=== PATIENT | male | born 1970 | race American Indian/Alaskan Native ===

== ENCOUNTER 2017-12-15 13:05 | Emergency (ER) | payer OTHER, SELFPAY ==
[2017-12-15 13:28] VITALS: BP 135/80; PULSE 85; RESP 20; TEMP 36.9; O2SAT 95
--- NOTE | 2017-12-15 14:05 | DI.RAD.S_ITS ---
PROCEDURE: XR KNEE RT 3V INDICATIONS: right knee twisted TECHNIQUE: 3 views right knee COMPARISON: [facility], , KNEE 3V RIGHT, 07/28/2015, 14:00. FINDINGS: Bones: No fractures or dislocations but there is moderately severe to severe degenerative knee joint osteoarthritis most pronounced at the lateral compartment and slightly less prominent at the medial compartment. It is mild at the patellofemoral joint. No suspicious bony lesions. Soft tissues: There is a moderately large to large suprapatellar joint effusion without lipohemarthrosis.. No suspicious soft tissue calcifications. IMPRESSION: Significant joint effusion is present in the suprapatellar bursal space at the right knee in this patient with twisting injury. Degenerative osteoarthritis is moderately severe to severe at the knee also, predisposing to meniscal or ligamentous injury. Followup knee MRI likely will become necessary. Dictated by: Theo Han M.D. on 12/15/2017 at 15:32 Approved by: Theo Han M.D. on 12/15/2017 at 15:35
--- NOTE | 2017-12-15 14:50 | PC.NURSE ---
done from lobby
--- NOTE | 2017-12-15 18:03 | ED_ITS ---
HPI - Extremity Injury (Lower) <QUINTON Vidal - Last Filed: 12/15/17 22:06> General Chief Complaint: Extremity Injury, Lower Stated Complaint: twisted right knee Time Seen by Provider: 12/15/17 18:23 Source: patient Mode of arrival: wheelchair Limitations: no limitations History of Present Illness HPI Narrative: 47-year-old male with history of kidney stones and is a current smoker here for complaint of pain into his right knee. Pain started earlier today. He states he stepped off a curb when the pain started. Shortly after that the pain worsened. He denies any falls. Denies any trauma to the area. Increased pain with movement of the right knee or weight-bearing. He also reports having some slight swelling to the area. He states he may have twisted when he stepped off the curb. He denies any other concerns or complaints at this time Related Data Previous Rx's Medication Instructions Recorded hydrocodone-acetaminophen [[place]] 1 tab PO Q4-6H PRN #10 tab 12/15/17 Allergies Allergy/AdvReac Type Severity Reaction Status Date / Time No Known Drug Allergies Allergy Verified 12/15/17 18:46 Review of Systems <QUINTON Vidal - Last Filed: 12/15/17 22:06> Constitutional Denies chills, Denies fever(s), Denies lethargy and Denies weakness Eyes Denies change in vision, Denies eye discharge, Denies irritation and Denies loss of vision ENT Ears, Nose, Mouth, and Throat: Denies change in voice, Denies neck pain and Denies sore throat Cardiovascular Denies chest pain, Denies irregular heart rhythm, Denies lightheadedness, Denies palpitations, Denies dyspnea, Denies dyspnea on exertion and Denies orthopnea Respiratory Denies cough, Denies dyspnea, Denies dyspnea on exertion and Denies wheezing Gastrointestinal Gastrointestinal: Denies abdominal pain, Denies change in bowel habits, Denies diarrhea, Denies nausea and Denies vomiting Genitourinary Denies hematuria, Denies flank pain, Denies urinary incontinence and Denies urinary urgency Musculoskeletal Denies neck pain Comments: Right knee pain Integumentary/Breasts Denies pruritus, Denies erythema, Denies rash and Denies wounds Neurologic Denies confusion, Denies loss of vision and Denies weakness Psychiatric Denies anxiety, Denies confusion, Denies depression, Denies homicidal ideation and Denies suicidal ideation Endocrine Denies palpitations Hematologic/Lymphatic Denies easy bruising Allergic/Immunologic Denies wheezing Exam <QUINTON Vidal - Last Filed: 12/15/17 22:06> Initial Vital Signs Initial Vital Signs: Vital Signs Temperature 98.5 F 12/15/17 13:28 Pulse Rate 85 12/15/17 13:28 Respiratory Rate 20 12/15/17 13:28 Blood Pressure 135/80 12/15/17 13:28 Pulse Oximetry 95 12/15/17 13:28 Const General: cooperative and well developed Nutritional Appearance: well nourished Orientation: alert, awake, oriented x3 and not confused HENMT Mouth: moist mucous membranes Eyes Conjunctivae: conjunctivae normal Sclera: sclerae normal Pupils: PERRL EOM: EOM intact bilaterally Resp Effort & Inspection: normal respiratory effort, able to speak in complete sentences, no respiratory distress and no use of accessory muscles Auscultation: clear to auscultation bilaterally, no rales, no rhonchi and no wheezes Cardio Rate: regular rate Rhythm: regular rhythm Heart Sounds: no click, no gallops, no murmurs and no rubs Pulses: normal peripheral pulses Skin General: no rashes or lesions noted, No jaundice and No petechiae Neuro General: alert, oriented x3, gait normal and no focal motor deficits Speech: speech normal Extrem Other: Swelling to the right knee. No ecchymosis. No deformities. No open lesions. Distal sensation is intact. Distal range of motion is intact. Distal pulses are intact. Negative anterior posterior drawer sign. Negative varus and valgus stress test. <Carley Carr DO - Last Filed: 12/16/17 03:02> Initial Vital Signs Initial Vital Signs: Vital Signs Temperature 98.5 F 12/15/17 13:28 Pulse Rate 85 12/15/17 13:28 Respiratory Rate 20 12/15/17 13:28 Blood Pressure 135/80 12/15/17 13:28 Pulse Oximetry 95 12/15/17 13:28 Course <QUINTON Vidal - Last Filed: 12/15/17 22:06> Orders Ordered: Discontinued Medications Hydrocodone Bitart/Acetaminophen ([place] 5/325) 2 tab PO NOW ONE Stop: 12/15/17 18:37 Last Admin: 12/15/17 18:47 Dose: 2 tab Vital Signs - 8 hr 12/15/17 19:37 Pulse Rate 80 Respiratory Rate 16 Blood Pressure 130/75 Pulse Oximetry 97 <Carley Carr DO - Last Filed: 12/16/17 03:02> Orders Ordered: Discontinued Medications Hydrocodone Bitart/Acetaminophen ([place] 5/325) 2 tab PO NOW ONE Stop: 12/15/17 18:37 Last Admin: 12/15/17 18:47 Dose: 2 tab Vital Signs - 8 hr 12/15/17 19:37 Pulse Rate 80 Respiratory Rate 16 Blood Pressure 130/75 Pulse Oximetry 97 MDM - Extremity Injury (Lower) <QUINTON Vidal - Last Filed: 12/15/17 22:06> Imaging Data Right knee: Radiologist's impression: [address] [address] XRay Report Signed Patient: Kenan DoughertyMR#: [id number] : 1970Acct:[id number] Age/Sex: 47 / MDate of Service: 12/15/17 Loc: ED Accession Number: [id number] Procedure: XR knee RT 3V Ordering Provider: Ashish Rodrigez PROCEDURE: XR KNEE RT 3V INDICATIONS: right knee twisted TECHNIQUE: 3 views right knee COMPARISON: [facility], , KNEE 3V RIGHT, 07/28/2015, 14:00. FINDINGS: Bones: No fractures or dislocations but there is moderately severe to severe degenerative knee joint osteoarthritis most pronounced at the lateral compartment and slightly less prominent at the medial compartment. It is mild at the patellofemoral joint. No suspicious bony lesions. Soft tissues: There is a moderately large to large suprapatellar joint effusion without lipohemarthrosis.. No suspicious soft tissue calcifications. IMPRESSION: Significant joint effusion is present in the suprapatellar bursal space at the right knee in this patient with twisting injury. Degenerative osteoarthritis is moderately severe to severe at the knee also, predisposing to meniscal or ligamentous injury. Followup knee MRI likely will become necessary. Dictated by: Theo Han M.D. on 12/15/2017 at 15:32 Approved by: Theo Han M.D. on 12/15/2017 at 15:35 [facility] Narrative Medical decision making narrative: X-ray the right knee was obtained was negative for any acute fractures. X-ray does show a joint effusion to the right knee. Will treat as acute sprain with knee immobilizer and crutches for nonweightbearing. Follow up with primary care provider next week for re- evaluation. If continued knee pain recommend MRI. For any worsening symptoms return to the emergency room. Ibuprofen as needed for any discomfort. Small amount of [place] is prescribed for breakthrough pain. Ice and elevation help with any swelling.. Discharge Plan Departure Patient Disposition: Home Clinical Impression: Right knee sprain Discharge Date/Time: 12/15/17 19:25 Interventions: ED Discharge Assessment Last Done: 12/15/17 19:37 Instructions: DI for Knee Pain Activity Restrictions/Additional Instructions: X-ray of the knee was obtained and was negative for any fractures. Signs and symptoms presents as a sprain to the right knee. Use [id number] Tylenol or Motrin as needed for any discomfort. Elevate the leg to help with swelling along with ice 20 min at a time several times a day over the next few days. Follow up with primary care provider next week. You have been placed in knee immobilizer for comfort and support use as directed. Crutches also provided for nonweightbearing. For any worsening symptoms return to the emergency room. Prescriptions: New hydrocodone-acetaminophen [[place]] 5-325 mg tablet 1 tab PO Q4-6H PRN (Reason: pain) Qty: 10 RF: 0 Referrals: Silvina Cartwright MD [Primary Care Provider] - Stand Alone Forms: Work/School Restrictions <Carley Carr DO - Last Filed: 12/16/17 03:02> [facility] Attending Lisa Attestation: I was immediately available in the department for consultation. Documentation has been reviewed. I agree with assessment and plan.
[2017-12-15 18:06] VITALS: BP 133/79; PULSE 16; RESP 16; O2SAT 99
[2017-12-15] MEDS: HYDROCODONE/ACET 5/325 TABLET 2 TAB PO (18:47)
[2017-12-15 19:37] VITALS: BP 130/75; PULSE 80; RESP 16; O2SAT 97
== END 2017-12-15 19:25 | disposition home or self-care (01) ==
PROVIDERS: Emergency Provider Nurse Practitioner Family; Family Provider Family Medicine; PCP Family Medicine
DX: S83.91XA Sprain of unspecified site of right knee, initial encounter (principal); W18.43XA Slipping, tripping and stumbling without falling due to stepping from one level to another, initial encounter
CPT/HCPCS: 73562; 99283

== ENCOUNTER → 2020-07-02 13:02 | Outpatient (CLI) | payer OTHER, SELFPAY ==
--- NOTE | 2020-07-02 13:06 | DI.US.S_ITS ---
PROCEDURE: US PERIPH VENOUS LOW EXTREM LT INDICATIONS: LOWER EXTREMITY EDEMA TECHNIQUE: Real-time imaging, as well as color and pulse Doppler interrogation, were performed of the lower extremity deep veins from the inguinal ligament to the popliteal fossa. COMPARISON: [facility], US, US VENOUS LOWER EXTREMITY DOPPLER LEFT, 04/29/2019, 23:55. [facility], US, US VENOUS LOWER EXTREMITY DOPPLER LEFT, 08/22/2018, 18:53. [facility], US, VEINS EXTREMITY DUPLEX LTD, 09/02/2008, 8:14. FINDINGS: The common femoral, femoral and popliteal veins are normally compressible, and free of intraluminal thrombus. Color and pulse Doppler demonstrate normal phasic intraluminal flow. There is normal augmentation response to distal compression maneuver. Calf edema is seen. Multiple groin lymph nodes are seen, with the largest measuring 7.3 x 6.2 x 1.4 cm. IMPRESSION: Negative for deep venous thrombosis. Prominent left groin lymph nodes are seen. Dictated by: Braeden Esposito M.D. on 07/02/2020 at 14:17 Approved by: Braeden Esposito M.D. on 07/02/2020 at 14:18
== END ==
PROVIDERS: Family Provider Family Medicine; PCP Family Medicine; Referring Provider Physician Assistant; Visit Provider Physician Assistant
DX: R60.0 Localized edema (principal); R59.0 Localized enlarged lymph nodes
CPT/HCPCS: 93971

== ENCOUNTER → 2021-01-08 15:30 | Outpatient (CLI) | payer OTHER, SELFPAY ==
--- NOTE | 2021-01-08 | DI.RAD.S_ITS ---
PROCEDURE: XR HIP W PEL IF DONE DANUTA MIN 4V INDICATIONS: Pain in Hips TECHNIQUE: AP pelvis with lateral view(s) of the bilateral hip(s). COMPARISON: Reference is made to the CT pelvis dated August 22, 2018. FINDINGS: Bones: No fractures or dislocations. Pelvic ring appears intact. No suspicious bony lesions. At least mild hip joint space loss with osteophyte formation. Soft tissues: The visualized bowel gas pattern is normal. No suspicious soft tissue calcifications. IMPRESSION: No acute osseous abnormality. Dictated by: Agustin Espitia M.D. on 01/08/2021 at 16:26 Approved by: Agustin Espitia M.D. on 01/08/2021 at 16:29
== END ==
PROVIDERS: Family Provider Family Medicine; PCP Family Medicine; Referring Provider Physician Assistant; Visit Provider Physician Assistant
DX: M25.551 Pain in right hip (principal); M25.552 Pain in left hip
CPT/HCPCS: 73522

== ENCOUNTER 2021-06-01 13:18 | Inpatient (IN) | payer OTHER, SELFPAY ==
[2021-06-01] VITALS (46 sets, daily range): BP systolic 108–198; BP diastolic 52–94; PULSE 113–132; RESP 12–39; TEMP 37.3–39.6; O2SAT 91–97; BMI 53.6
--- NOTE | 2021-06-01 13:44 | DI.RAD.S_ITS ---
PROCEDURE: XR CHEST 1V INDICATIONS: suspected sepsis TECHNIQUE: One view of the chest was acquired. COMPARISON: [facility], , CHEST 2 VIEW, 06/16/2015, 13:48. FINDINGS: Surgical changes and devices: None. Lungs and pleura: Lungs are clear. No pleural effusions or pneumothorax. Mediastinum: Mediastinal contours appear normal. Heart size is normal. Bones and chest wall: No suspicious bony lesions. Overlying soft tissues appear unremarkable. IMPRESSION: No acute cardiopulmonary disease. Dictated by: Kanchan Goodman M.D. on 06/01/2021 at 14:37 Approved by: Kanchan Goodman M.D. on 06/01/2021 at 14:38
[2021-06-01 14:45] LABS: COVID19 -Nasal RAPID Negative (Negative)
[2021-06-01] MEDS: ONDANSETRON 4 MG ODT PO (16:10)
[2021-06-01 16:11] LABS: Amorphous Sediment Urine 1+; Bacteria Urine Few (2-10); Mucus Urine 1+ (Negative); RBC Urine 0-1/HPF (0-5/HPF); Squamous Epithelial Cell Urine 1-5 /HPF (0-5/HPF); WBC Urine 1-5/HPF (0-5/HPF)
[2021-06-01 16:12] LABS: Culture Indicated Urine Specimen Cultured; Sperm Urine 2-5 MOTILE
--- NOTE | 2021-06-01 16:17 | DI.CT.S_ITS ---
PROCEDURE: CT ABDOMEN PELVIS W CON INDICATIONS: suprapubic pain and erythema TECHNIQUE: After the administration of intravenous contrast, axial sections acquired from the lung bases to the pubic symphysis. Coronal and sagittal reformats were performed. For radiation dose reduction, the following was used: automated exposure control, adjustment of mA and/or kV according to patient size. COMPARISON: [facility], CT, CT ABDOMEN PELVIS WITHOUT CONTRAST, 02/25/2021, 21:16. FINDINGS: The urinary bladder is decompressed by Marcano catheter and is not well evaluated. There may be some thickening of the anterior urinary bladder wall, although this is not definitive. There is no perivesicular fat stranding or free fluid. Lymphadenopathy in the left inguinal, left pelvic sidewall, left iliac, and left periaortic/retroperitoneal stations is similar to the comparison examination. No abnormally dilated or thickened loop of bowel. No pericolonic or mesenteric fat stranding. Grossly unremarkable unenhanced CT appearance of the liver, spleen, pancreas, gallbladder, and adrenal glands. Nonobstructing calculus in the left lower pole kidney similar to the prior study. No additional urinary tract calculus. No hydroureteronephrosis or perinephric fat stranding. Visualized portions of the lung bases are clear. No acute or suspicious osseous lesion. IMPRESSION: Left inguinal, pelvic sidewall, iliac, and retroperitoneal lymphadenopathy similar to February 2021 examination. This remains of indeterminate etiology. Possible anterior urinary bladder wall thickening; evaluation limited by decompression of the urinary bladder by a Marcano catheter. Dictated by: Jeevan Hutchison M.D. on 06/01/2021 at 17:36 Approved by: Jeevan Hutchison M.D. on 06/01/2021 at 17:43
--- NOTE | 2021-06-01 16:17 | DI.US.S_ITS ---
PROCEDURE: US SCROTUM INDICATIONS: suprapubic pain and erythema TECHNIQUE: Real-time scanning was performed of the scrotum and testicles, with image documentation. Color and pulse Doppler interrogation was performed of both testicles. COMPARISON: None. FINDINGS: Both testicles normal in size and appearance. There is no testicular mass. The right testicle measures 2.8 x 3.9 x 6.1 cm. The left testicle measures 3.0 x 4.0 x 5.8 cm. Both testicles demonstrate normal and symmetric Doppler vascular signal with no evidence of hyperemia or torsion. Bilateral epididymi are ill-defined and appear hyperemic. No hydrocele or varicocele. IMPRESSION: Ill-defined and hyperemic bilateral epididymi suggestive of epididymitis. Dictated by: Jeevan Hutchison M.D. on 06/01/2021 at 17:06 Approved by: Jeevan Hutchison M.D. on 06/01/2021 at 17:07
--- NOTE | 2021-06-01 16:22 | ED.FEVER ---
HPI - Fever General Chief Complaint: Fever Stated Complaint: DAX Oropeza Time Seen by Provider: 06/01/21 15:54 Source: patient Mode of arrival: Ambulatory Limitations: no limitations History of Present Illness HPI Narrative: The patient complains of fever. He says he became ill about 10:00 a.m. this morning. He complains primarily of groin/genital pain. He has no headache, no sore throat. He denies cough, or dyspnea. He has no chest pain. He is morbidly obese. He has nausea without emesis. He does not have urinary retention or dysuria. He has pain and swelling lower abdomen and the genital region. He also complains of back pain. He has chronic back pain. He has no numbness or weakness in lower extremities. He has no regular prescription medications. Related Data Home Medications Medication Instructions Recorded Confirmed No Known Home Medications 08/16/18 08/16/18 Allergies Allergy/AdvReac Type Severity Reaction Status Date / Time No Known Drug Allergies Allergy Verified 08/16/18 16:22 Review of Systems Constitutional Constitutional: Reports chills, Reports fever(s), Denies headache(s) and Denies stops breathing during sleep ENT Ears, Nose, Mouth, and Throat: Denies headache(s), Denies sinus pressure and Denies sore throat Cardiovascular Cardiovascular: Denies chest pain, Denies rapid heart rate and Denies dyspnea Respiratory Respiratory: Denies cough and Denies dyspnea Gastrointestinal Gastrointestinal: Reports as per HPI and Reports abdominal pain Genitourinary Comments: Pain in the groin as noted HPI. No dysuria. Musculoskeletal Comments: Chronic low back pain Integumentary/Breasts Comments: Erythema to the lower abdomen groin. Neurologic Neurologic: Denies headache(s) Psychiatric Psychiatric: Reports anxiety Hematologic/Lymphatic On Anticoagulants: No Patient History Medical History (Updated 06/01/21 @ 21:54 by Florencio Durán MD) Chronic low back pain Morbid obesity Social History Smoking Status: Former smoker Smoking Status: Former smoker alcohol intake frequency: holidays/special occasions only Substance Use Type: does not use Exam Initial Vital Signs Initial Vital Signs: Vital Signs Temperature 101.8 F H 06/01/21 13:37 Pulse Rate 120 H 06/01/21 13:37 Respiratory Rate 24 06/01/21 13:37 Blood Pressure 131/82 06/01/21 13:37 Pulse Oximetry 97 06/01/21 13:37 Const General: cooperative and acute distress [facility] Head: normal to inspection, normocephalic and atraumatic Throat: posterior oropharynx normal Eyes General: appearance normal, both eyes and all related structures Neck Neck: full ROM and No JVD Chest Chest: normal inspection of the chest Resp Effort & Inspection: normal respiratory effort Auscultation: clear to auscultation bilaterally Cardio Rate: tachycardic Rhythm: regular rhythm Heart Sounds: S1 normal, S2 normal and no murmurs GI Other: Morbidly obese abdomen. Erythema with warmth under the pannus. No skin breaks. No skin lesions. Tenderness in the area of cellulitis. There is no guarding or rebound tenderness about the abdomen. He has normal bowel sounds. Other: Erythema to the penis and scrotum. The scrotum is warm and seems to be slightly thickened. Erythema is present throughout the folds the groin. No palpable masses to the scrotum. No areas of induration or fluctuance. Back/Spine/Pelvis Back: normal to inspection and back tenderness (Over the lower lumbar spine.) Skin Other: Cellulitic changes below the pannus and throughout the groin across the scrotum. Neuro General: patient alert and patient oriented x3 Extrem General: normal to inspection, full ROM, no pedal edema and no calf tenderness Psych Mental Status: mental status grossly normal Course Course Course Narrative: The patient was tachycardic with fever 1 arrived. He is normotensive. Sepsis was immediate concern. IV fluids were started, he was given Zosyn. COVID is negative. There is no acute pulmonary process in place. Cath urine sample does not indicate an infection. Findings are suggestive that the cellulitis of his pannus and groin are his source of fever. The case was discussed with Urology, Dr. Moss with the [facility]. 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 There is no obvious changes on the exam indicating necrosis or gangrene. He agrees with treatment for cellulitis. He did note that the area of concern should be evaluated regularly, monitoring for skin changes. The case was then presented to the hospitalist, Dr. Chin, who has agreed to admission. In addition Zosyn, I also started vancomycin. Blood cultures were obtained before the antibiotics were given. The patient is tachycardic with fever. He is normotensive. Lactic acid is slightly elevated. Normal saline 30 mL per/kg ideal body weight was initiated along with antibiotics. Orders Ordered: ED Orders 06/01/21 13:44 XR chest 1V Stat RT Consult Eval and Treat NOW 06/01/21 13:45 COVID19 -Nasal swab/Pre-Proc Stat 06/01/21 15:00 Urine Culture Stat Urine Microscopic Stat 06/01/21 15:17 EKG-12 Lead Stat 06/01/21 16:17 CT abdomen pelvis w con Stat US scrotum Stat 06/01/21 16:42 Complete Blood Count AUTO DIFF Stat Comprehensive Metabolic Panel Stat Lactate (Lactic Acid) Stat Lipase Stat Partial Thromboplastin Time Stat Procalcitonin Stat Prothrombin Time INR Stat 06/01/21 18:42 Blood Culture Stat Lactate (Lactic Acid) Stat Sodium Chloride (Normal Saline 0.9%) 1,000 mls @ 1,000 mls/hr IV BOLUS ONE Stop: 06/01/21 22:35 Last Admin: 06/01/21 21:56 Dose: 1,000 mls/hr Documented by: Vancomycin HCl/Dextrose (Vancomycin) 2,000 mg in 400 mls @ 200 mls/hr IV NOW ONE Stop: 06/01/21 23:38 Last Admin: 06/01/21 21:56 Dose: 200 mls/hr Documented by: Discontinued Medications Acetaminophen (Acetaminophen 325 Mg Tablet) 975 mg PO NOW ONE Stop: 06/01/21 16:22 Last Admin: 06/01/21 18:02 Dose: 975 mg Documented by: JAMES Hydromorphone HCl (Hydromorphone 1 Mg Inj) 1 mg IV NOW ONE Stop: 06/01/21 19:06 Last Admin: 06/01/21 19:20 Dose: 1 mg Documented by: KRISTINAETERSON Hydromorphone HCl (Hydromorphone 1 Mg Inj) 1 mg IV Q4H PRN PRN Reason: Pain, Moderate (4-6) Hydromorphone HCl (Hydromorphone 0.5 Mg Inj) 1 mg IV NOW ONE Stop: 06/01/21 21:49 Sodium Chloride (Normal Saline 0.9%) 1,000 mls @ 1,000 mls/hr IV BOLUS ONE Stop: 06/01/21 14:43 Last Infusion: 06/01/21 20:02 Dose: 0 mls/hr Documented by: Admin: 06/01/21 16:47 Dose: 1,000 mls/hr Documented by: ONIEL Piperacillin Sod/Tazobactam (Sod 4.5 gm/ Sodium Chloride) 100 mls @ 200 mls/hr IV NOW ONE Stop: 06/01/21 16:18 Last Infusion: 06/01/21 18:10 Dose: 0 mls/hr Documented by: Admin: 06/01/21 17:00 Dose: 200 mls/hr Documented by: JAMES Sodium Chloride (Normal Saline 0.9%) 1,000 mls @ 1,000 mls/hr IV BOLUS ONE Stop: 06/01/21 17:20 Last Admin: 06/01/21 19:17 Dose: 1,000 mls/hr Documented by: JAMES Ketorolac Tromethamine (Ketorolac 30 Mg/Ml Vial) 30 mg IV NOW ONE Stop: 06/01/21 21:45 Last Admin: 06/01/21 21:56 Dose: 30 mg Documented by: Lidocaine HCl (Lidocaine 2% (Glydo) 6 Ml Gel) 6 ml TOP NOW ONE Stop: 06/01/21 16:28 Last Admin: 06/01/21 16:35 Dose: 6 ml Documented by: ONIEL Ondansetron HCl (Ondansetron 4 Mg/2 Ml Inj) 4 mg IV NOW ONE Stop: 06/01/21 13:45 Last Admin: 06/01/21 18:02 Dose: Not Given Documented by: JAMES Ondansetron HCl (Ondansetron 4 Mg Odt) 4 mg PO NOW ONE Stop: 06/01/21 16:08 Last Admin: 06/01/21 16:10 Dose: 4 mg Documented by: ONIEL Ondansetron HCl (Ondansetron 4 Mg/2 Ml Inj) 4 mg IV NOW ONE Stop: 06/01/21 16:18 Last Admin: 06/01/21 18:03 Dose: Not Given Documented by: JAMES Vital Signs Vital signs: Vital Signs - 8 hr 06/01/21 15:18 06/01/21 15:19 06/01/21 15:30 Temperature 103.1 F H Pulse Rate 126 H 126 H 126 H Respiratory Rate 17 19 Blood Pressure 161/89 H Pulse Oximetry 95 95 95 06/01/21 15:45 06/01/21 16:00 06/01/21 16:06 Temperature Pulse Rate 125 H 130 H Respiratory Rate 17 39 H Blood Pressure 124/85 Pulse Oximetry 97 95 06/01/21 16:15 06/01/21 16:16 06/01/21 16:30 Temperature Pulse Rate 128 H 128 H 128 H Respiratory Rate 22 18 22 Blood Pressure 198/94 H Pulse Oximetry 96 96 94 06/01/21 16:33 06/01/21 16:45 06/01/21 16:46 Temperature Pulse Rate 127 H 123 H 122 H Respiratory Rate 23 18 16 Blood Pressure 180/78 H 175/90 H Pulse Oximetry 96 96 96 06/01/21 17:00 06/01/21 17:15 06/01/21 17:35 Temperature Pulse Rate 125 H 124 H 120 H Respiratory Rate 12 24 19 Blood Pressure 158/74 H 153/69 H Pulse Oximetry 96 95 97 06/01/21 17:45 06/01/21 18:00 06/01/21 18:15 Temperature Pulse Rate 122 H 127 H 129 H Respiratory Rate 23 28 H 27 H Blood Pressure Pulse Oximetry 96 94 96 06/01/21 18:16 06/01/21 18:30 06/01/21 18:45 Temperature 103.2 F H Pulse Rate 129 H 132 H 122 H Respiratory Rate 20 27 H 25 H Blood Pressure 153/67 H 114/55 L 115/54 L Pulse Oximetry 95 94 95 06/01/21 19:00 06/01/21 19:09 06/01/21 19:15 Temperature Pulse Rate 121 H 120 H 125 H Respiratory Rate 22 30 H 24 Blood Pressure 117/54 L 120/53 L 132/53 L Pulse Oximetry 95 95 94 06/01/21 19:30 06/01/21 19:33 06/01/21 19:45 Temperature Pulse Rate 126 H 127 H 127 H Respiratory Rate 17 26 H 24 Blood Pressure 114/54 L 113/53 L 111/54 L Pulse Oximetry 91 92 92 06/01/21 20:00 06/01/21 20:10 06/01/21 20:15 Temperature 100.1 F H Pulse Rate 126 H 125 H Respiratory Rate 26 H 25 H Blood Pressure 110/55 L 122/59 L Pulse Oximetry 92 92 06/01/21 20:30 06/01/21 20:45 06/01/21 21:00 Temperature Pulse Rate 122 H 122 H 124 H Respiratory Rate 25 H 32 H 27 H Blood Pressure 121/56 L 116/52 L 131/60 Pulse Oximetry 94 93 93 06/01/21 21:15 Temperature Pulse Rate 124 H Respiratory Rate 24 Blood Pressure 108/53 L Pulse Oximetry 92 MDM - Fever Lab Data Result diagrams: 06/01/21 16:42 06/01/21 16:42 Labs: Lab Results 06/01/21 06/01/21 06/01/21 Range/Units 13:45 15:00 16:42 WBC 16.4 H (4.5-11.0) X10^3/uL RBC 5.60 (4.5-5.9) X10^6/uL Hgb 14.9 (13.5-17.5) g/dL Hct 46.3 (41-53) % MCV 82.6 (80-100) fL MCH 26.6 (26-34) PG MCHC 32.2 (30-36) % RDW 15.4 H (11.6-14.8) % Plt Count 246 (150-400) X10^3/uL Neut % (Auto) 90.1 H (50-75) % Lymph % (Auto) 4.5 L (25-40) % [place] % (Auto) 5.0 (3-14) % Eos % (Auto) 0.1 L (2-4) % Baso % (Auto) 0.3 (0-2) % Neut # (Auto) 70514 H (6206-5879) /uL Lymph # (Auto) 700 L (8346-1350) /uL [place] # (Auto) 800 (0-900) /uL Eos # (Auto) 0 (0-450) /uL Baso # (Auto) 0 (0-100) /uL PT (10.1-12.7) SECONDS INR (0.9-1.3) APTT (26.4-36.2) SECONDS Sodium (137-145) mmol/L Potassium (3.4-5.1) mmol/L Chloride (98-107) mmol/L Carbon Dioxide (22-32) mmol/L BUN (9-20) mg/dL Creatinine (0.66-1.25) mg/dL Estimated GFR (>60) mL/min BUN/Creatinine Ratio (6-22) Glucose (70-100) mg/dL Lactate (0.7-2.1) mmol/L Calcium (8.4-10.2) mg/dL Total Bilirubin (0.2-1.3) mg/dL AST (17-59) IU/L ALT (<50) IU/L Alkaline Phosphatase (38-126) U/L Total Protein (6.3-8.2) g/dL Albumin (3.5-5.0) g/dL Globulin (1.7-4.1) g/dL Albumin/Globulin Ratio (1.0-2.8) Lipase (23-300) U/L Procalcitonin (<0.5) ng/mL Urine RBC 0-1/hpf (0-5/HPF) Urine WBC 1-5/hpf (0-5/HPF) Ur Squamous Epith Cells 1-5 /hpf (0-5/HPF) Amorphous Sediment 1+ Urine Bacteria Few (2-10) H (None) Urine Mucus 1+ H (Negative) Urine Sperm 2-5 motile Ur Culture Indicated? Specimen cultured SARS-CoV-2 (PCR) Negative (Negative) 06/01/21 06/01/21 06/01/21 Range/Units 16:42 16:42 16:42 WBC (4.5-11.0) X10^3/uL RBC (4.5-5.9) X10^6/uL Hgb (13.5-17.5) g/dL Hct (41-53) % MCV (80-100) fL MCH (26-34) PG MCHC (30-36) % RDW (11.6-14.8) % Plt Count (150-400) X10^3/uL Neut % (Auto) (50-75) % Lymph % (Auto) (25-40) % [place] % (Auto) (3-14) % Eos % (Auto) (2-4) % Baso % (Auto) (0-2) % Neut # (Auto) (3782-9505) /uL Lymph # (Auto) (3930-0582) /uL [place] # (Auto) (0-900) /uL Eos # (Auto) (0-450) /uL Baso # (Auto) (0-100) /uL PT 12.2 (10.1-12.7) SECONDS INR 1.1 (0.9-1.3) APTT 31 (26.4-36.2) SECONDS Sodium 138 (137-145) mmol/L Potassium 4.1 (3.4-5.1) mmol/L Chloride 102 (98-107) mmol/L Carbon Dioxide 29 (22-32) mmol/L BUN 17 (9-20) mg/dL Creatinine 1.14 (0.66-1.25) mg/dL Estimated GFR > 60.0 (>60) mL/min BUN/Creatinine Ratio 14.9 (6-22) Glucose 124 H (70-100) mg/dL Lactate 2.1 (0.7-2.1) mmol/L Calcium 9.4 (8.4-10.2) mg/dL Total Bilirubin 0.5 (0.2-1.3) mg/dL AST 26 (17-59) IU/L ALT 27 (<50) IU/L Alkaline Phosphatase 59 (38-126) U/L Total Protein 9.1 H (6.3-8.2) g/dL Albumin 4.7 (3.5-5.0) g/dL Globulin 4.4 H (1.7-4.1) g/dL Albumin/Globulin Ratio 1.1 (1.0-2.8) Lipase 66 (23-300) U/L Procalcitonin 0.30 (<0.5) ng/mL Urine RBC (0-5/HPF) Urine WBC (0-5/HPF) Ur Squamous Epith Cells (0-5/HPF) Amorphous Sediment Urine Bacteria (None) Urine Mucus (Negative) Urine Sperm Ur Culture Indicated? SARS-CoV-2 (PCR) (Negative) 06/01/21 Range/Units 18:42 WBC (4.5-11.0) X10^3/uL RBC (4.5-5.9) X10^6/uL Hgb (13.5-17.5) g/dL Hct (41-53) % MCV (80-100) fL MCH (26-34) PG MCHC (30-36) % RDW (11.6-14.8) % Plt Count (150-400) X10^3/uL Neut % (Auto) (50-75) % Lymph % (Auto) (25-40) % [place] % (Auto) (3-14) % Eos % (Auto) (2-4) % Baso % (Auto) (0-2) % Neut # (Auto) (1849-5183) /uL Lymph # (Auto) (9840-4697) /uL [place] # (Auto) (0-900) /uL Eos # (Auto) (0-450) /uL Baso # (Auto) (0-100) /uL PT (10.1-12.7) SECONDS INR (0.9-1.3) APTT (26.4-36.2) SECONDS Sodium (137-145) mmol/L Potassium (3.4-5.1) mmol/L Chloride (98-107) mmol/L Carbon Dioxide (22-32) mmol/L BUN (9-20) mg/dL Creatinine (0.66-1.25) mg/dL Estimated GFR (>60) mL/min BUN/Creatinine Ratio (6-22) Glucose (70-100) mg/dL Lactate 2.3 H (0.7-2.1) mmol/L Calcium (8.4-10.2) mg/dL Total Bilirubin (0.2-1.3) mg/dL AST (17-59) IU/L ALT (<50) IU/L Alkaline Phosphatase (38-126) U/L Total Protein (6.3-8.2) g/dL Albumin (3.5-5.0) g/dL Globulin (1.7-4.1) g/dL Albumin/Globulin Ratio (1.0-2.8) Lipase (23-300) U/L Procalcitonin (<0.5) ng/mL Urine RBC (0-5/HPF) Urine WBC (0-5/HPF) Ur Squamous Epith Cells (0-5/HPF) Amorphous Sediment Urine Bacteria (None) Urine Mucus (Negative) Urine Sperm Ur Culture Indicated? SARS-CoV-2 (PCR) (Negative) Urine Dip Bedside Urine Glucose Negative Bedside Urine Bilirubin - Negative Bedside Urine Ketone - Negative Urine Specific [place] 1.015 Bedside Urine Occult Blood +/- Bedside Urine pH 7.0 Bedside Urine Protein + 30 Bedside Urine Urobilinogen - Negative Bedside Urine Nitrite - Negative Bedside Urine Leukocytes - Negative Esterase Imaging Data Chest x-ray: Radiologist's Impression: No acute findings CT scan - abdomen/pelvis: Radiologist's Impression: [address] [facility] Routine Call Back Main ED ?13? My List ?4? Waiting ?2? Surge ED ?0? R01? Luis? Jeevan? 52 M? In Room? 2h 27m? 3-Urgent? ?? Extremity Injury, Upper? RIGHT HAND INJURY? ?? No Time Seen? REG ER? No Document? Sign Up 3rd day of bactrim Order BP 145/95 Pulse 90 Resp 18 Temp 98.4 F O2 Sat 98% (RA) Imaging R02? Monlux? Silvia? 88 F? Boarding? 11h 38m? 2-Emergent? ?? Neuro Symptoms/Deficit? Altered Mental Status? ?? 06/01/21 10:17? REG ER? Draft? Salo Brown repeat trop at 0130 Order BP Pulse 67 Resp 22 Temp O2 Sat 95% Imaging Lactate (L... ?Troponin &... ?Complete B... ?Chem Ethanol (E... ?Prolactin ... Salicylate... ?Urinalysis... ?Acetaminop... Ammonia (N... ?Prothrombi... Urine Drug... POC/CONRADO Magnesium ... ?Phosphorou... COVID19 -N... ?Troponin I... MAR EKG-12 Arely... Microbiolo... Phosphorou... EKG-12 Arely... Troponin I... R04? Siechen? Mandy? 76 F? With Doctor? 5h 31m? 3-Urgent? ?? Urogenital-Female? UNABLE TO PEE SENSE SAT SWELLING OF LEGS SOB? ?? 06/01/21 20:38? REG ER? Draft? Salo Wylie K trop 0.138 US Here Order BP 92/54 Pulse 88 Resp 16 Temp O2 Sat 98% (RA) ?Complete B... ?Chem Lipase Sta... ?Partial Th... Prothrombi... ?Urinalysis... ?NT-proBNP ... ?Troponin &... Creatinine... ?Sodium Uri... Imaging MAR NPO Diet EKG-12 Arely... Cardiac mo... Microbiolo... R05? Benjamin? Salo? 64 M? Admitted Patient? 5h 2m? 3-Urgent? VC: 1? Shortness of Breath/Dyspnea? Needs Admitted for Heart Issues? ?? 06/01/21 18:25? ADM IN? Draft? Salo Cowan Dejan Centeno coord aware prob after 2300 covid neg 3 Order BP 118/75 Pulse 102 Resp 20 Temp O2 Sat 96% (RA) ?Complete B... MAR Chem Lipase Sta... NT-proBNP ... Troponin &... EKG-12 Arely... Cardiac mo... R06? Wall? Jenifer? 51 F? Admitted Patient? 5h 55m? 2-Emergent? ?? Altered Mental Status? Confusion? Sepsis, C19S/S, ?? 06/01/21 16:39? ADM IN? Draft? Slao Phipps S floor care coord aware prob after 2300 covid neg Order BP 144/95 Pulse 107 Resp Temp 98.8 F O2 Sat ?Complete B... Lactate (L... Procalcito... ?Chem Lipase Sta... Partial Th... Prothrombi... Imaging COVID19 -N... ?NT-proBNP ... ?Troponin &... Ictotest U... ?Urinalysis... ... Ammonia (N... Ethanol (E... ?Urine Drug... ?Acetaminop... Salicylate... ?Arterial B... Respirator... ?Troponin I... MAR RT Consult... NPO Diet EKG-12 Arely... Cardiac mo... Microbiolo... POC/CONRADO R07? [place]? Zoe? 36 F? In Room? 17m? 2-Emergent? ?? Diabetic Problem? SLURRING OF WORDS DIABETIC? C19S/S? No Time Seen? PRE ER? No Document? Sign Up 7 Order BP 146/69 Pulse 118 Resp 20 Temp 97.0 F O2 Sat 100% (RA) Consult to... R08? Dougherty? Kenan? 51 M? Admitted Observation Patient? 8h 38m? 2-Emergent? ?? Fever? Shakey, SOB? Sepsis, C19S/S? 06/01/21 15:54? ADM AGGIE? Draft? Florencio Bailey coord aware plan to admit covid neg Order BP 108/53 Pulse 124 Resp 24 Temp O2 Sat 92% ?Chem Lactate (L... Partial Th... ?Complete B... Procalcito... Imaging POC/CONRADO COVID19 -N... ?Urine Micr... ?Lactate (L... Lipase Sta... Prothrombi... MAR EKG-12 Arely... NPO Diet RT Consult... Cardiac mo... Microbiolo... Urine Drug... R10? Kelsey? Asher? 49 M? With Doctor? 6h 5m? 3-Urgent? ?? GI Bleed? BLOOD IN STOOL? ?? 06/01/21 20:20? REG ER? Draft? Salo Nieves Order BP 153/110 Pulse 81 Resp Temp O2 Sat 98% Partial Th... ?Prothrombi... Type and S... ?Complete B... ?Chem Imaging NPO Diet EKG-12 Arely... Cardiac mo... POC/CONRADO R11? Rojas? Harlan? 89 M? With Doctor? 10h 26m? 3-Urgent? ?? Nausea/Vomiting/Diarrhea? Abnormal labs- liver- sent by [facility]? ISO? 06/01/21 12:06? REG ER? I-Signed? Salo Nieves [facility] for bed can we get hosp bed for ERCP Order BP 161/72 Pulse 77 Resp 21 Temp O2 Sat ?Chem Lipase Sta... ?Complete B... Ammonia (N... Imaging ?Partial Th... ?Prothrombi... POC/CONRADO ?Ictotest U... ?Troponin &... ?Ictotest U... ?Urinalysis... COVID19 -N... MAR Cardiac mo... NPO Diet EKG-12 Arely... EKG-12 Arely... Urine Micr... Microbiolo... R13? Ramo? Clarisse? 60 F? With Doctor? 4h 10m? 3-Urgent? VC: 1? Skin/Abscess/Foreign Body? CHECK ABSCESS ON STOMACH? ?? 06/01/21 21:28? REG ER? No Document? Salo Cowan lines labd Order BP Pulse 56 Resp Temp O2 Sat 100% (RA) ?Prothrombi... ?Complete B... ?Chem Microbiolo... WRoom? Stanley? Rosalie? 49 F? Registered? 2h 6m? 4-Less Urgent? ?? Wound/Laceration? RIGHT HAND DEEP CUT INDEX LACERATION? ?? No Time Seen? REG ER? No Document? Sign Up tdap UTD Order BP 146/71 Pulse 91 Resp 16 Temp 98.1 F O2 Sat 100% (RA) WRoom? Brandon? Shena? 70 F? Registered? 46m? 3-Urgent? ?? Headache? NECK PAIN? ?? No Time Seen? REG ER? No Document? Sign Up Order BP 181/84 Pulse 98 Resp 16 Temp 97.5 F O2 Sat 99% (RA) Feliberto Charles? Renaldo? 58 M? Admitted Patient? 9h 50m? 2-Emergent? ?? Abdominal Pain? Umbillical Hernia, Sent From [facility]? ?? 06/01/21 12:51? ADM IN? Draft? Florencio Lai H Room 219/[place]rene or [place] uro+ coor aware ADMIT Order BP 99/60 Pulse 77 Resp 16 Temp O2 Sat 94% ?Complete B... ?Prothrombi... Imaging Lipase Sta... ?Chem Partial Th... POC/CONRADO COVID19 -N... ?Ethanol (E... Magnesium ... ?Urine Drug... ?Lactate (L... MAR NPO Diet Cardiac mo... EKG-12 Arely... Chem NPO Diet Complete B... Lipase Sta... Cardiac mo... Admit as R... NPO Diet Imaging - CT abdomen pelvis w con; US scrotum; XR chest 1V Kenan Dougherty??51??M??1970 ? Allergy/Adv: No Known Drug Allergies Close Results Imaging ACTIVITY DATE EXAM STATUS AUTHOR 06/01/21 16:17 Scrotum Ultrasound Signed Jeevan Hutchison 06/01/21 16:17 Abdomen/Pelvis CT Signed Jeevan Hutchison 06/01/21 13:44 Chest X-Ray Signed Kanchan Goodman Imaging Reports Close Scrotum Ultrasound (Signed) Jeevan Hutchison - 06/01/21 Abdomen/Pelvis CT (Signed) Jeevan Hutchison - 06/01/21 Chest X-Ray (Signed) Kanchan Goodman - 06/01/21 Launch?[place] [address] CT Scan Report Signed Patient: Kenan Dougherty MR#: [id number] : 1970 Acct:[id number] Age/Sex: 51 / M Date of Service: 06/01/21 Loc: ED Accession Number: [id number] ?? Procedure: CT abdomen pelvis w con Ordering Provider: Florencio Durán MD PROCEDURE:? CT ABDOMEN PELVIS W CON ? INDICATIONS:? suprapubic pain and erythema ? TECHNIQUE:? After the administration of intravenous contrast, axial sections acquired from the lung bases to the pubic symphysis.? Coronal and sagittal reformats were performed.? For radiation dose reduction, the following was used:? automated exposure control, adjustment of mA and/or kV according to patient size.? ? COMPARISON:? [facility], CT, CT ABDOMEN PELVIS WITHOUT CONTRAST, 02/25/2021, 21:16. ? FINDINGS:? ? The urinary bladder is decompressed by Marcano catheter and is not well evaluated.? There may be some thickening of the anterior urinary bladder wall, although this is not definitive.? There is no perivesicular fat stranding or free fluid.? Lymphadenopathy in the left inguinal, left pelvic sidewall, left iliac, and left periaortic/retroperitoneal stations is similar to the comparison examination. ? No abnormally dilated or thickened loop of bowel.? No pericolonic or mesenteric fat stranding.? Grossly unremarkable unenhanced CT appearance of the liver, spleen, pancreas, gallbladder, and adrenal glands.? Nonobstructing calculus in the left lower pole kidney similar to the prior study.? No additional urinary tract calculus.? No hydroureteronephrosis or perinephric fat stranding.? Visualized portions of the lung bases are clear.? No acute or suspicious osseous lesion. ? IMPRESSION:? ? Left inguinal, pelvic sidewall, iliac, and retroperitoneal lymphadenopathy similar to February 2021 examination.? This remains of indeterminate etiology. ? Possible anterior urinary bladder wall thickening; evaluation limited by decompression of the urinary bladder by a Marcano catheter.? Dictated by: Jeevan Hutchison M.D. on 06/01/2021 at 17:36 ? ? Approved by: Jeevan Hutchison M.D. on 06/01/2021 at 17:43?? Scrotum ultrasound: Radiologist's Impression: [place] [address] Ultrasound Report Signed Patient: Kenan Dougherty MR#: [id number] : 1970 Acct:[id number] Age/Sex: 51 / M Date of Service: 06/01/21 Loc: ED Accession Number: [id number] ?? Procedure: US scrotum Ordering Provider: Florencio Durán MD PROCEDURE:? US SCROTUM ? INDICATIONS:? suprapubic pain and erythema ? TECHNIQUE:? Real-time scanning was performed of the scrotum and testicles, with image documentation.? Color and pulse Doppler interrogation was performed of both testicles.? ? COMPARISON:? None. ? FINDINGS:? ? Both testicles normal in size and appearance.? There is no testicular mass.? The right testicle measures 2.8 x 3.9 x 6.1 cm.? The left testicle measures 3.0 x 4.0 x 5.8 cm.? Both testicles demonstrate normal and symmetric Doppler vascular signal with no evidence of hyperemia or torsion. ? Bilateral epididymi are ill-defined and appear hyperemic. ? No hydrocele or varicocele. ? IMPRESSION: ? Ill-defined and hyperemic bilateral epididymi suggestive of epididymitis. ? ? Dictated by: Jeevan Hutchison M.D. on 06/01/2021 at 17:06 ? ? Approved by: Jeevan Hutchison M.D. on 06/01/2021 at 17:07?? ECG Data Attestation: I personally reviewed and interpreted this ECG as follows: (Sinus tachycardia rate 126 beats per minute. LAFB. Inferior Q-waves. No ectopy. No acute ST elevation.) Critical Care Time Critical Care Time Critical Care Time: Yes Total Critical Care Time: 60 Attestation: Critical care time included initial patient assessment, review of lab in radiology data, and consultations detailed above. Clinical findings and treatment plan were discussed with the patient. Discharge Plan Departure Patient Disposition: Admitted as Observation Clinical Impression: Cellulitis of groin, Morbid obesity Admit Date/Time: 06/01/21 21:31 Admit Provider: Jeanine Chin
[2021-06-01] MEDS: LIDOCAINE 2% (GLYDO) 6 ML GEL TOP (16:35)
[2021-06-01] MEDS: SODIUM CHLORIDE 0.9% 1,000 ML 1000 ML IV ×3 (16:47→21:56)
[2021-06-01 16:54] LABS: Add Manual Diff / Slide Review NO; Basophils Absolute Auto 0 /uL (0-100); Basophils Percent Auto 0.3 % (0-2); Eosinophils Absolute Auto 0 /uL (0-450); Eosinophils Percent Auto 0.1 % (2-4); Hematocrit 46.3 % (41-53); Hemoglobin 14.9 g/dL (13.5-17.5); Lymphocytes Absolute Auto 700 /uL (1100-4500); Lymphocytes Percent Auto 4.5 % (25-40); Mean Corpuscular HGB Conc 32.2 % (30-36); Mean Corpuscular Hemoglobin 26.6 PG (26-34); Mean Corpuscular Volume 82.6 fL (80-100); Monocytes Absolute Auto 800 /uL (0-900); Neutrophils Absolute Auto 14800 /uL (1500-7000); Neutrophils Percent Auto 90.1 % (50-75); Platelet Count 246 X10^3/uL (150-400); Red Cell Distribution Width 15.4 % (11.6-14.8); White Blood Cell Count 16.4 X10^3/uL (4.5-11.0)
[2021-06-01] MEDS: PIPERACILLIN/TAZO 4.5 GM in SODIUM CHLORIDE 0.9% 100 ML 200 ML IV (17:00)
[2021-06-01 17:05] LABS: INR 1.1 (0.9-1.3); Prothrombin Time 12.2 SECONDS (10.1-12.7)
[2021-06-01 17:08] LABS: PTT Partial Thromboplastin Tim 31 SECONDS (26.4-36.2)
[2021-06-01 17:09] LABS: Alanine Aminotransferase 27 IU/L (<50); Albumin 4.7 g/dL (3.5-5.0); Albumin Globulin Ratio 1.1 (1.0-2.8); Alkaline Phosphatase 59 U/L (38-126); Aspartate Aminotransferase 26 IU/L (17-59); BUN Creatinine Ratio 14.9 (6-22); Bilirubin Total 0.5 mg/dL (0.2-1.3); Blood Urea Nitrogen 17 mg/dL (9-20); Calcium 9.4 mg/dL (8.4-10.2); Carbon Dioxide 29 mmol/L (22-32); Chloride 102 mmol/L (98-107); Estimated Glomerular Filt Rate > 60.0 mL/min (>60); Globulin 4.4 g/dL (1.7-4.1); Glucose 124 mg/dL (70-100); HEMOLYSIS < 15 (0-50); Lipase 66 U/L (23-300); Potassium 4.1 mmol/L (3.4-5.1); Sodium 138 mmol/L (137-145); Total Protein 9.1 g/dL (6.3-8.2)
[2021-06-01 17:10] LABS: Lactate (Lactic Acid) 2.1 mmol/L (0.7-2.1)
[2021-06-01] MEDS: ACETAMINOPHEN 325 MG TABLET 975 MG PO (18:02)
[2021-06-01 18:49] LABS: Reflexed Lactate in 2 Hours Y
[2021-06-01 19:05] LABS: Lactate (Lactic Acid) 2.3 mmol/L (0.7-2.1)
[2021-06-01] MEDS: HYDROMORPHONE 1 MG INJ IV ×2 (19:20→22:24)
[2021-06-01 20:44] LABS: Reflexed Lactate in 2 Hours Y
[2021-06-01] MEDS: VANCOMYCIN 2,000 MG/400 ML PIGGYBACK 200 MG IV (21:56)
[2021-06-01] MEDS: KETOROLAC 30 MG/ML VIAL IV (21:56)
[2021-06-01 22:20] LABS: UR Morphine/Opiate cutoff 300 Negative (Negative); Ur Creatinine Normal (Normal); Ur Specific Gravity Normal (Normal); Urine Amphetamines Negative (Negative); Urine Barbiturates Negative (Negative); Urine Benzodiazepines Negative (Negative); Urine Cocaine Negative (Negative); Urine MDMA Negative (Negative); Urine Methadone Negative (Negative); Urine Methamphetamines Negative (Negative); Urine Oxycodone Negative (Negative); Urine Phencyclidine Negative (Negative); Urine Tetrahydrocannabinol Negative (Negative); Urine Tricyclic Antidepressant Negative (Negative); Urine pH Normal (Normal)
[2021-06-02] VITALS (84 sets, daily range): BP systolic 125–165; BP diastolic 59–83; PULSE 85–128; RESP 16–44; TEMP 36.2–38.8; O2SAT 83–97
[2021-06-02 00:44] LABS: Magnesium 1.8 mg/dL (1.6-2.3)
[2021-06-02] MEDS: SODIUM CHLORIDE 0.9% 1,000 ML 2000 ML IV (00:45)
[2021-06-02 00:53] LABS: NT-proBNP (BNP-Adult 18+) 23 pg/mL (<125)
[2021-06-02] MEDS: SODIUM CHLORIDE 0.9% 1,000 ML 100 ML IV ×2 (01:00→13:54)
[2021-06-02] MEDS: cefTRIAXone 1,000 MG in SODIUM CHLORIDE 0.9% 100 ML 200 ML IV (01:00)
[2021-06-02] MEDS: PIPERACILLIN/TAZO 3.375 GM in SODIUM CHLORIDE 0.9% 100 ML 25 ML IV ×3 (01:00→16:33)
[2021-06-02] MEDS: ONDANSETRON 4 MG/2 ML INJ IV ×4 (01:11→21:11)
[2021-06-02] MEDS: TRAMADOL 50 MG TABLET 100 MG PO ×2 (01:23→16:34)
--- NOTE | 2021-06-02 03:22 | PM.CN.EICU ---
History of Present Illness Consult details Chief complaint: Sandip SOB :: This patient was seen in the Intensive Care Unit via real time interactive two-way audiovisual telecommunication. Narrative: 51 y.o. morbidly obese male (BMI of 56) who presented to ED with fever. Onset was early AM on 06/01. Reported groin pain. ED evaluation revealed erythema involving his pannus, penis and scrotum without fluctuance, masses, or induration. Initial lactate was 2.3. He received a 30 mL/kg IBW crystalloid bolus and was started on vancomycin and Zosyn. Lactate has improved to 2.1. He is on RA. Scrotal USG was suspicious for epididymitis; abd/pelvic CT scan did show some thickening of the anterior wall and urine microscopy did show 1+ bacteria; a urine culture was reflexed. [facility] Medical History Chronic low back pain Morbid obesity Social History household members: none Smoking Status: Former smoker alcohol intake: current Current Medications Current Medications Medications: Home Medications No Known Home Medications 08/16/18 [History Confirmed 08/16/18] Visit Medications (administered) Generic Name Dose Route Start Last Admin Trade Name Freq PRN Reason Stop Dose Admin Hydromorphone HCl 1 mg 06/01/21 22:18 06/01/21 22:24 Hydromorphone 1 Mg Inj IV 1 mg Q4H PRN Administration Pain, Moderate (4-6) Piperacillin Sod/Tazobactam 100 mls @ 25 mls/hr 06/02/21 00:00 06/02/21 01:00 Sod 3.375 gm/ Sodium Chloride IV 25 mls/hr Q8H NAMITA Administration Ceftriaxone Sodium 1,000 mg/ 100 mls @ 200 mls/hr 06/01/21 23:30 06/02/21 01:30 Sodium Chloride IV Infused Q24H NAMITA Infusion Sodium Chloride 1,000 mls @ 100 mls/hr 06/02/21 00:15 06/02/21 01:00 Normal Saline 0.9% IV 100 mls/hr CONT NAMITA Administration Ondansetron HCl 4 mg 06/02/21 01:00 03/08/22 01:11 Ondansetron 4 Mg/2 Ml Inj IV 4 mg Q4HR NAMITA Administration Tramadol HCl 100 mg 06/02/21 00:15 06/02/21 01:23 Tramadol 50 Mg Tablet PO 06/05/21 00:14 100 mg Q4H PRN Administration Pain, Severe (7-10) Review of Systems Review of Systems Narrative: Not performed as patient was sleeping on camera activation Exam Vital Signs (past 8 hours): - 06/01/21 19:30 06/01/21 19:33 06/01/21 19:45 Temperature Pulse Rate 126 H 127 H 127 H Respiratory Rate 17 26 H 24 Blood Pressure 114/54 L 113/53 L 111/54 L Pulse Oximetry 91 92 92 06/01/21 20:00 06/01/21 20:10 06/01/21 20:15 Temperature 100.1 F H Pulse Rate 126 H 125 H Respiratory Rate 26 H 25 H Blood Pressure 110/55 L 122/59 L Pulse Oximetry 92 92 06/01/21 20:30 06/01/21 20:45 06/01/21 21:00 Temperature Pulse Rate 122 H 122 H 124 H Respiratory Rate 25 H 32 H 27 H Blood Pressure 121/56 L 116/52 L 131/60 Pulse Oximetry 94 93 93 06/01/21 21:15 06/01/21 21:30 06/01/21 21:45 Temperature Pulse Rate 124 H 123 H 121 H Respiratory Rate 24 25 H 28 H Blood Pressure 108/53 L 115/53 L 119/58 L Pulse Oximetry 92 93 96 06/01/21 22:00 06/01/21 22:15 06/01/21 22:19 Temperature 101.1 F H Pulse Rate 120 H 124 H Respiratory Rate 25 H 23 Blood Pressure 120/56 L 116/56 L Pulse Oximetry 94 94 06/01/21 22:30 06/01/21 22:45 06/01/21 23:00 Temperature Pulse Rate 123 H 120 H 119 H Respiratory Rate 23 24 27 H Blood Pressure 120/58 L 126/56 L 114/52 L Pulse Oximetry 94 93 93 06/01/21 23:15 06/01/21 23:54 06/01/21 23:58 Temperature 99.1 F Pulse Rate 114 H 113 H Respiratory Rate 24 23 Blood Pressure 129/60 Pulse Oximetry 93 91 93 06/02/21 00:00 03/08/22 00:15 06/02/21 00:30 Temperature Pulse Rate 114 H 112 H 111 H Respiratory Rate 29 H 34 H 44 H Blood Pressure Pulse Oximetry 93 92 89 L 06/02/21 00:45 06/02/21 01:00 06/02/21 01:15 Temperature Pulse Rate 109 H 108 H 106 H Respiratory Rate 23 42 H 40 H Blood Pressure 134/65 Pulse Oximetry 89 L 94 95 06/02/21 01:30 06/02/21 01:45 Temperature Pulse Rate 103 H 108 H Respiratory Rate 37 H 44 H Blood Pressure 136/76 Pulse Oximetry 97 93 Oxygen Delivery Method Room Air Oxygen Flow Rate 0 Const General: other (morbidly obese male who is sleeping) Resp Effort & Inspection: normal respiratory effort (no apnea spells noted) Objective Labs Result Diagrams: 06/01/21 16:42 06/01/21 16:42 Labs: Laboratory Results - last 24 hr 06/01/21 06/01/21 06/01/21 13:45 15:00 16:42 WBC 16.4 H RBC 5.60 Hgb 14.9 Hct 46.3 MCV 82.6 MCH 26.6 MCHC 32.2 RDW 15.4 H Plt Count 246 Neut % (Auto) 90.1 H Lymph % (Auto) 4.5 L [place] % (Auto) 5.0 Eos % (Auto) 0.1 L Baso % (Auto) 0.3 Neut # (Auto) 53726 H Lymph # (Auto) 700 L [place] # (Auto) 800 Eos # (Auto) 0 Baso # (Auto) 0 PT INR APTT Sodium Potassium Chloride Carbon Dioxide BUN Creatinine Estimated GFR BUN/Creatinine Ratio Glucose Lactate Calcium Magnesium Total Bilirubin AST ALT Alkaline Phosphatase C-Reactive Protein NT-Pro-B Natriuret Pep Total Protein Albumin Globulin Albumin/Globulin Ratio Lipase Procalcitonin Urine RBC 0-1/hpf Urine WBC 1-5/hpf Ur Squamous Epith Cells 1-5 /hpf Amorphous Sediment 1+ Urine Bacteria Few (2-10) H Urine Mucus 1+ H Urine Sperm 2-5 motile Ur Culture Indicated? Specimen cultured Nasal Screen MRSA (PCR) U Opiates 300ng/mL cut Ur Oxycodone Screen Urine Methadone Screen Ur Barbiturates Screen U Tricyclic Antidepress Ur Phencyclidine Scrn Ur Amphetamines Screen U Methamphetamines Scrn Ur MDMA Scrn (Ecstasy) U Benzodiazepines Scrn Urine Cocaine Screen U Marijuana (THC) Screen SARS-CoV-2 (PCR) Negative 06/01/21 06/01/21 06/01/21 16:42 16:42 16:42 WBC RBC Hgb Hct MCV MCH MCHC RDW Plt Count Neut % (Auto) Lymph % (Auto) [place] % (Auto) Eos % (Auto) Baso % (Auto) Neut # (Auto) Lymph # (Auto) [place] # (Auto) Eos # (Auto) Baso # (Auto) PT 12.2 INR 1.1 APTT 31 Sodium 138 Potassium 4.1 Chloride 102 Carbon Dioxide 29 BUN 17 Creatinine 1.14 Estimated GFR > 60.0 BUN/Creatinine Ratio 14.9 Glucose 124 H Lactate 2.1 Calcium 9.4 Magnesium Total Bilirubin 0.5 AST 26 ALT 27 Alkaline Phosphatase 59 C-Reactive Protein NT-Pro-B Natriuret Pep Total Protein 9.1 H Albumin 4.7 Globulin 4.4 H Albumin/Globulin Ratio 1.1 Lipase 66 Procalcitonin 0.30 Urine RBC Urine WBC Ur Squamous Epith Cells Amorphous Sediment Urine Bacteria Urine Mucus Urine Sperm Ur Culture Indicated? Nasal Screen MRSA (PCR) U Opiates 300ng/mL cut Ur Oxycodone Screen Urine Methadone Screen Ur Barbiturates Screen U Tricyclic Antidepress Ur Phencyclidine Scrn Ur Amphetamines Screen U Methamphetamines Scrn Ur MDMA Scrn (Ecstasy) U Benzodiazepines Scrn Urine Cocaine Screen U Marijuana (THC) Screen SARS-CoV-2 (PCR) 06/01/21 06/01/21 06/01/21 16:42 16:42 16:42 WBC RBC Hgb Hct MCV MCH MCHC RDW Plt Count Neut % (Auto) Lymph % (Auto) [place] % (Auto) Eos % (Auto) Baso % (Auto) Neut # (Auto) Lymph # (Auto) [place] # (Auto) Eos # (Auto) Baso # (Auto) PT INR APTT Sodium Potassium Chloride Carbon Dioxide BUN Creatinine Estimated GFR BUN/Creatinine Ratio Glucose Lactate Calcium Magnesium 1.8 Total Bilirubin AST ALT Alkaline Phosphatase C-Reactive Protein NT-Pro-B Natriuret Pep 23 Total Protein Albumin Globulin Albumin/Globulin Ratio Lipase Procalcitonin Urine RBC Urine WBC Ur Squamous Epith Cells Amorphous Sediment Urine Bacteria Urine Mucus Urine Sperm Ur Culture Indicated? Nasal Screen MRSA (PCR) U Opiates 300ng/mL cut Negative Ur Oxycodone Screen Negative Urine Methadone Screen Negative Ur Barbiturates Screen Negative U Tricyclic Antidepress Negative Ur Phencyclidine Scrn Negative Ur Amphetamines Screen Negative U Methamphetamines Scrn Negative Ur MDMA Scrn (Ecstasy) Negative U Benzodiazepines Scrn Negative Urine Cocaine Screen Negative U Marijuana (THC) Screen Negative SARS-CoV-2 (PCR) 06/01/21 06/01/21 06/02/21 16:42 18:42 00:32 WBC RBC Hgb Hct MCV MCH MCHC RDW Plt Count Neut % (Auto) Lymph % (Auto) [place] % (Auto) Eos % (Auto) Baso % (Auto) Neut # (Auto) Lymph # (Auto) [place] # (Auto) Eos # (Auto) Baso # (Auto) PT INR APTT Sodium Potassium Chloride Carbon Dioxide BUN Creatinine Estimated GFR BUN/Creatinine Ratio Glucose Lactate 2.3 H Calcium Magnesium Total Bilirubin AST ALT Alkaline Phosphatase C-Reactive Protein 1.0 NT-Pro-B Natriuret Pep Total Protein Albumin Globulin Albumin/Globulin Ratio Lipase Procalcitonin Urine RBC Urine WBC Ur Squamous Epith Cells Amorphous Sediment Urine Bacteria Urine Mucus Urine Sperm Ur Culture Indicated? Nasal Screen MRSA (PCR) Negative for mrsa U Opiates 300ng/mL cut Ur Oxycodone Screen Urine Methadone Screen Ur Barbiturates Screen U Tricyclic Antidepress Ur Phencyclidine Scrn Ur Amphetamines Screen U Methamphetamines Scrn Ur MDMA Scrn (Ecstasy) U Benzodiazepines Scrn Urine Cocaine Screen U Marijuana (THC) Screen SARS-CoV-2 (PCR) Assessment & Plan Assessment and plan (1) Sepsis: Problem details: Source is soft tissue +/- urinary. Lactate has normalized Status: Acute Plan: -Continue vancomycin/Zosyn -Would check MRSA swab and stop vancomycin if swab is (-) -Follow up final urine cx results (2) Cellulitis of groin: Status: Acute Plan: -See problem #1 (3) Morbid obesity: Status: Acute Plan: -Maximal skin precautions -Consider increasing enoxaparin VTE prophylaxis to bariatric dose (4) DAVON (obstructive sleep apnea): Status: Acute Plan: -Continue nocturnal NIPPV
[2021-06-02] MEDS: HYDROMORPHONE 0.5 MG INJ IV (05:17)
--- NOTE | 2021-06-02 05:17 | P.HP_ITS ---
History of Present Illness History of Present Illness Date Patient Seen: 06/01/21 Time Patient Seen: 22:00 Chief complaint: Sandip, DAX Narrative: Kenan Dougherty is a 51-year-old male who denies any prominent medical history though noted morbid obesity presented to the ED with a chief complaint of groin/genital pain. Patient states that the pain and swelling of his groin area started developing today at approximately 10:00 a.m., denies any inciting trauma or injury. Upon admit P patient denies chest pain, headache, cough, shortness of breath, upper respirat ory symptoms, sore throat, urinary symptoms The patient complained of fever, body aches groin/genital pain, nausea without emesis, pain and swelling lower abdomen, genital region, back pain in ED.? He has chronic back pain.? Upon admit He deniess numbness or weakness in lower extremities.? He takes no medications. Patient states that upon admit patient states that fever nausea and back pain have resolved. Patient's vitals upon admit patient is febrile, demonstrates hypotension, tachycardiatemp 103.2?, BP 120/53 (in ED 198/94, 161/89) HR 120, RR 30 O2 saturation 94% on 1 L nasal cannula. Patient desatted while sleeping into the low 80s required 2 L nasal cannula for Patient has a white count of 16.4, neut# 14,800, Neut % 90.1%, glucose 124, lactate 2.3, total protein 9.1, procalcitonin WNL, UA is positive for few bacteria +1 mucus and a culture. Patient's EKG demonstrates sinus tachycardia with LAFB, inferior Q-wave, without ST or T-wave changes. Tox screen was negative, UA was positive for few bacteria mucus and a culture was placed. Chest x-ray demonstrated no acute cardiopulmonary processes, scrotal ultrasound demonstrated ill-defined and hyperemic bilateral epididymi, possible anterior bladder wall thickening. Patient's abdominal pelvis CT demonstrated left inguinal, pelvic sidewall and retroperitoneal lymphadenopathy similar to findings on to 03/16. Patient met SIRS criteria/sepsis, patient admitted for its scrotal cellulitis, sepsis. Dr. Taylor urology was consulted in the ED, as well as from . Who advised vision should be admitted for cellulitis no surgical consult required at this time. Patient History Medical History Chronic low back pain Morbid obesity Family & Social History Family History Father Diabetes mellitus Cancer Mother Healthy adult Social History: household members none Prior Living Arrangements Apartment/Condo Safety & Behavioral: Feels Safe in Current Yes Environment Been Physically Hurt or No Threatened By a Person Suicidal Ideation Description None Suicide Plan Description No Plan Tobacco & Substance use: Smoking Status Former smoker -smoked for 32 years and quit 5 months alcohol intake current alcohol intake frequency holiday/special occasion Substance Use Type does not use Meds Home Medications and Allergies Home Medications Medication Instructions Recorded Confirmed Type No Known Home Medications 08/16/18 08/16/18 History Allergies Allergy/AdvReac Type Severity Reaction Status Date / Time No Known Drug Allergies Allergy Verified 08/16/18 16:22 Review of Systems Review of Systems Narrative: All 12 point systems reviewed with the patient and are negative except otherwise documented. Exam Vital Signs (past 8 hours): - 06/01/21 21:30 06/01/21 21:45 06/01/21 22:00 Temperature Pulse Rate 123 H 121 H 120 H Respiratory Rate 25 H 28 H 25 H Blood Pressure 115/53 L 119/58 L 120/56 L Pulse Oximetry 93 96 94 06/01/21 22:15 06/01/21 22:19 06/01/21 22:30 Temperature 101.1 F H Pulse Rate 124 H 123 H Respiratory Rate 23 23 Blood Pressure 116/56 L 120/58 L Pulse Oximetry 94 94 06/01/21 22:45 06/01/21 23:00 06/01/21 23:15 Temperature 99.1 F Pulse Rate 120 H 119 H 114 H Respiratory Rate 24 27 H 24 Blood Pressure 126/56 L 114/52 L 129/60 Pulse Oximetry 93 93 93 06/01/21 23:54 06/01/21 23:58 06/02/21 00:00 Temperature Pulse Rate 113 H 114 H Respiratory Rate 23 29 H Blood Pressure Pulse Oximetry 91 93 93 06/02/21 00:15 06/02/21 00:30 06/02/21 00:45 Temperature Pulse Rate 112 H 111 H 109 H Respiratory Rate 34 H 44 H 23 Blood Pressure Pulse Oximetry 92 89 L 89 L 06/02/21 01:00 06/02/21 01:15 06/02/21 01:30 Temperature Pulse Rate 108 H 106 H 103 H Respiratory Rate 42 H 40 H 37 H Blood Pressure 134/65 136/76 Pulse Oximetry 94 95 97 06/02/21 01:45 06/02/21 02:00 06/02/21 02:15 Temperature Pulse Rate 108 H 108 H 106 H Respiratory Rate 44 H 37 H 44 H Blood Pressure 137/75 Pulse Oximetry 93 93 94 06/02/21 02:30 06/02/21 02:45 06/02/21 03:00 Temperature Pulse Rate 103 H 103 H 102 H Respiratory Rate 26 H 25 H 21 Blood Pressure 147/78 H 150/83 H Pulse Oximetry 95 96 97 06/02/21 03:15 06/02/21 03:30 06/02/21 03:53 Temperature 98.9 F Pulse Rate 104 H 105 H 103 H Respiratory Rate 23 33 H 22 Blood Pressure 145/70 H 145/70 H Pulse Oximetry 95 96 96 06/02/21 03:54 Temperature Pulse Rate Respiratory Rate Blood Pressure Pulse Oximetry 94 Oxygen Delivery Method Nasal Cannula Oxygen Flow Rate 1 Narrative Exam Narrative: General: cooperative and acute distress HENSC Head: normal to inspection, normocephalic and atraumatic Throat: posterior oropharynx normal Eyes General: appearance normal, both eyes and all related structures Neck Neck: full ROM and No JVD Chest Chest: normal inspection of the chest Resp Effort & Inspection: normal respiratory effort Auscultation: clear to auscultation bilaterally Cardio Rate: tachycardic Rhythm: regular rhythm Heart Sounds: S1 normal, S2 normal and no murmurs GI Other: Morbidly obese abdomen.? Erythema with warmth under the pannus.? No skin breaks.? No skin lesions.? Tenderness in the area of cellulitis.? There is no guarding or rebound tenderness about the abdomen.? He has normal bowel sounds. Other: Erythema to the penis and scrotum.? The scrotum is warm and seems to be slightly thickened.? Erythema is present throughout the folds the groin.? No palpable masses to the scrotum.? No areas of induration or fluctuance. Back/Spine/Pelvis Back: normal to inspection and back tenderness (Over the lower lumbar spine.) Skin Other: Cellulitic changes below the pannus and throughout the groin across the scrotum. Neuro General: patient alert and patient oriented x3 Extrem General: normal to inspection, full ROM, no pedal edema and no calf tenderness Psych Mental Status: mental status grossly normal Objective Labs Result Diagrams: 06/01/21 16:42 06/01/21 16:42 Labs: Laboratory Results - last 24 hr 06/01/21 06/01/21 06/01/21 13:45 15:00 16:42 WBC 16.4 H RBC 5.60 Hgb 14.9 Hct 46.3 MCV 82.6 MCH 26.6 MCHC 32.2 RDW 15.4 H Plt Count 246 Neut % (Auto) 90.1 H Lymph % (Auto) 4.5 L [place] % (Auto) 5.0 Eos % (Auto) 0.1 L Baso % (Auto) 0.3 Neut # (Auto) 17800 H Lymph # (Auto) 700 L [place] # (Auto) 800 Eos # (Auto) 0 Baso # (Auto) 0 PT INR APTT Sodium Potassium Chloride Carbon Dioxide BUN Creatinine Estimated GFR BUN/Creatinine Ratio Glucose Lactate Calcium Magnesium Total Bilirubin AST ALT Alkaline Phosphatase C-Reactive Protein NT-Pro-B Natriuret Pep Total Protein Albumin Globulin Albumin/Globulin Ratio Lipase Procalcitonin Urine RBC 0-1/hpf Urine WBC 1-5/hpf Ur Squamous Epith Cells 1-5 /hpf Amorphous Sediment 1+ Urine Bacteria Few (2-10) H Urine Mucus 1+ H Urine Sperm 2-5 motile Ur Culture Indicated? Specimen cultured Nasal Screen MRSA (PCR) U Opiates 300ng/mL cut Ur Oxycodone Screen Urine Methadone Screen Ur Barbiturates Screen U Tricyclic Antidepress Ur Phencyclidine Scrn Ur Amphetamines Screen U Methamphetamines Scrn Ur MDMA Scrn (Ecstasy) U Benzodiazepines Scrn Urine Cocaine Screen U Marijuana (THC) Screen SARS-CoV-2 (PCR) Negative 06/01/21 06/01/21 06/01/21 16:42 16:42 16:42 WBC RBC Hgb Hct MCV MCH MCHC RDW Plt Count Neut % (Auto) Lymph % (Auto) [place] % (Auto) Eos % (Auto) Baso % (Auto) Neut # (Auto) Lymph # (Auto) [place] # (Auto) Eos # (Auto) Baso # (Auto) PT 12.2 INR 1.1 APTT 31 Sodium 138 Potassium 4.1 Chloride 102 Carbon Dioxide 29 BUN 17 Creatinine 1.14 Estimated GFR > 60.0 BUN/Creatinine Ratio 14.9 Glucose 124 H Lactate 2.1 Calcium 9.4 Magnesium Total Bilirubin 0.5 AST 26 ALT 27 Alkaline Phosphatase 59 C-Reactive Protein NT-Pro-B Natriuret Pep Total Protein 9.1 H Albumin 4.7 Globulin 4.4 H Albumin/Globulin Ratio 1.1 Lipase 66 Procalcitonin 0.30 Urine RBC Urine WBC Ur Squamous Epith Cells Amorphous Sediment Urine Bacteria Urine Mucus Urine Sperm Ur Culture Indicated? Nasal Screen MRSA (PCR) U Opiates 300ng/mL cut Ur Oxycodone Screen Urine Methadone Screen Ur Barbiturates Screen U Tricyclic Antidepress Ur Phencyclidine Scrn Ur Amphetamines Screen U Methamphetamines Scrn Ur MDMA Scrn (Ecstasy) U Benzodiazepines Scrn Urine Cocaine Screen U Marijuana (THC) Screen SARS-CoV-2 (PCR) 06/01/21 06/01/21 06/01/21 16:42 16:42 16:42 WBC RBC Hgb Hct MCV MCH MCHC RDW Plt Count Neut % (Auto) Lymph % (Auto) [place] % (Auto) Eos % (Auto) Baso % (Auto) Neut # (Auto) Lymph # (Auto) [place] # (Auto) Eos # (Auto) Baso # (Auto) PT INR APTT Sodium Potassium Chloride Carbon Dioxide BUN Creatinine Estimated GFR BUN/Creatinine Ratio Glucose Lactate Calcium Magnesium 1.8 Total Bilirubin AST ALT Alkaline Phosphatase C-Reactive Protein NT-Pro-B Natriuret Pep 23 Total Protein Albumin Globulin Albumin/Globulin Ratio Lipase Procalcitonin Urine RBC Urine WBC Ur Squamous Epith Cells Amorphous Sediment Urine Bacteria Urine Mucus Urine Sperm Ur Culture Indicated? Nasal Screen MRSA (PCR) U Opiates 300ng/mL cut Negative Ur Oxycodone Screen Negative Urine Methadone Screen Negative Ur Barbiturates Screen Negative U Tricyclic Antidepress Negative Ur Phencyclidine Scrn Negative Ur Amphetamines Screen Negative U Methamphetamines Scrn Negative Ur MDMA Scrn (Ecstasy) Negative U Benzodiazepines Scrn Negative Urine Cocaine Screen Negative U Marijuana (THC) Screen Negative SARS-CoV-2 (PCR) 06/01/21 06/01/21 06/02/21 16:42 18:42 00:32 WBC RBC Hgb Hct MCV MCH MCHC RDW Plt Count Neut % (Auto) Lymph % (Auto) [place] % (Auto) Eos % (Auto) Baso % (Auto) Neut # (Auto) Lymph # (Auto) [place] # (Auto) Eos # (Auto) Baso # (Auto) PT INR APTT Sodium Potassium Chloride Carbon Dioxide BUN Creatinine Estimated GFR BUN/Creatinine Ratio Glucose Lactate 2.3 H Calcium Magnesium Total Bilirubin AST ALT Alkaline Phosphatase C-Reactive Protein 1.0 NT-Pro-B Natriuret Pep Total Protein Albumin Globulin Albumin/Globulin Ratio Lipase Procalcitonin Urine RBC Urine WBC Ur Squamous Epith Cells Amorphous Sediment Urine Bacteria Urine Mucus Urine Sperm Ur Culture Indicated? Nasal Screen MRSA (PCR) Negative for mrsa U Opiates 300ng/mL cut Ur Oxycodone Screen Urine Methadone Screen Ur Barbiturates Screen U Tricyclic Antidepress Ur Phencyclidine Scrn Ur Amphetamines Screen U Methamphetamines Scrn Ur MDMA Scrn (Ecstasy) U Benzodiazepines Scrn Urine Cocaine Screen U Marijuana (THC) Screen SARS-CoV-2 (PCR) Assessment & Plan Assessment & Plan narrative: Kenan Dougherty is a 51-year-old male with only noted history of morbid obesity who presented to the ED with scrotal cellulitis positive for sepsis. Patient will require sepsis fluid bolusing and IV antibiotics. Urology consulted in the ED and advise that the patient does not need any surgical interventions nor was there any gangrene present. 1. Sepsis secondary to scrotal cellulitis, multiple organ dysfunction, acute, present on admission -sepsis as evidence by temp of 103.2?, HR 120 RR 30, WBC 16.4, lactic acid 2.3 -patient provided sepsis bolus, given Zosyn in ED -blood and urine cultures obtained -will trend lactate, orders CRP sed rate, Mag, A1c, MRSA -Marcano placed monitors strict I&O -ordered vanco per pharmacy 2. Morbidly obese as evidence by BMI 56.3, acute on chronic, present on admission -Dietary consult ordered -patient's morbid obesity will greatly impact his ability to heal and impair his medical management -A1c ordered to rule out diabetes Code status: Full Surrogate decision maker: Sister Dina WILLIAMSON PCR: Negative DVT/VTE prophylaxis: Lovenox and SCDs Disposition: Patient admitted to the ICU due to the severe sepsis, expected length of stay greater than 2 midnights Consultations: Tele wireless construction manager Dr. Tate, Dr. Taylor urology, Dr. Sanchez urology of . I have utilized all available immediate resources to obtain, update, or review the patient's current medications. I confirmed that the patient's advanced care plan is present, Code status is documented and/or surrogate decision maker is listed in the patient's medical record. Time Spent With Patient Critical Care time: I spent a total of [] minutes of critical care time on this patient's care today; this time is exclusive of procedural time. Quality VTE Deep Vein Thrombosis/Pulmonary Embolism Present on Admission: No
--- NOTE | 2021-06-02 05:36 | PC.NURSE ---
Shift Note: Received patient from ED, alert and orientedx4, ambulatory, with complaint of bilateral inguinal pain with PS 6/10. No signs of cardio-respiratory distress, O2 sat at 92%, on room air, afebrile T-99.1, vital signs within acceptable limits. with IV access at DEONTE, ongoing NS1L bolus and vancomycin IVPB. Marcano cath in placed with adequate urine output. Due pain meds given for bilateral inguinal pain. Tele ICU MD Tate notified and updated.
[2021-06-02 06:40] LABS: Hematocrit 41.5 % (41-53); Hemoglobin 13.3 g/dL (13.5-17.5); Mean Corpuscular HGB Conc 32.1 % (30-36); Mean Corpuscular Hemoglobin 26.7 PG (26-34); Mean Corpuscular Volume 83.2 fL (80-100); Platelet Count 219 X10^3/uL (150-400); Red Blood Cell Count 4.99 X10^6/uL (4.5-5.9); Red Cell Distribution Width 15.5 % (11.6-14.8); White Blood Cell Count 27.4 X10^3/uL (4.5-11.0)
[2021-06-02 06:43] LABS: Add Manual Diff / Slide Review YES
[2021-06-02 06:44] LABS: INR 1.3 (0.9-1.3)
[2021-06-02 06:53] LABS: Lactate (Lactic Acid) 1.5 mmol/L (0.7-2.1)
[2021-06-02 06:54] LABS: Alanine Aminotransferase 23 IU/L (<50); Albumin 3.9 g/dL (3.5-5.0); Alkaline Phosphatase 46 U/L (38-126); Aspartate Aminotransferase 23 IU/L (17-59); BUN Creatinine Ratio 13.7 (6-22); Bilirubin Total 0.4 mg/dL (0.2-1.3); Blood Urea Nitrogen 19 mg/dL (9-20); Carbon Dioxide 27 mmol/L (22-32); Chloride 106 mmol/L (98-107); Estimated Glomerular Filt Rate 54.3 mL/min (>60); Globulin 3.8 g/dL (1.7-4.1); Glucose 138 mg/dL (70-100); HEMOLYSIS < 15 (0-50); Lactate Dehydrogenase 378 U/L (313-618); Potassium 4.3 mmol/L (3.4-5.1); Sodium 138 mmol/L (137-145); Total Protein 7.7 g/dL (6.3-8.2)
[2021-06-02 06:56] LABS: Erythrocyte Sedimentation Rate 10 MM/HR (0-15)
[2021-06-02 07:21] LABS: Neutrophils Absolute Manual 25482 /uL (3000-5900); Total Cells Counted 100
[2021-06-02 07:22] LABS: RBC Morphology Norm
[2021-06-02] MEDS: ENOXAPARIN 40 MG/0.4 ML SYRINGE SUBCUT ×2 (09:09→21:12)
[2021-06-02] MEDS: HYDROMORPHONE 1 MG INJ IV ×3 (09:11→20:02)
--- NOTE | 2021-06-02 09:17 | DI.US.S_ITS ---
PROCEDURE: US PERIPH VENOUS LOW EXTREM BI INDICATIONS: EDEMA TECHNIQUE: Real-time imaging, as well as color and pulse Doppler interrogation, were performed of the deep veins of both legs from the inguinal ligament to the popliteal fossa. COMPARISON: None. FINDINGS: Right: The common femoral, femoral and popliteal veins are normally compressible, and free of intraluminal thrombus. Color and pulse Doppler demonstrate normal phasic intravascular flow. There is normal augmentation response to distal compression maneuver. Left: The common femoral, femoral and popliteal veins are normally compressible, and free of intraluminal thrombus. Color and pulse Doppler demonstrate normal phasic intravascular flow. There is normal augmentation response to distal compression maneuver. IMPRESSION: Negative for deep venous thrombosis of the bilateral lower extremity. Dictated by: Servando Huynh M.D. on 06/02/2021 at 12:19 Approved by: Servando Huynh M.D. on 06/02/2021 at 12:20
--- NOTE | 2021-06-02 10:58 | PC.NURSE ---
PT C/O BILAT GROIN PAIN RADIATING BACK TO SACRUM - NO NOTED OPEN AREAS, LUNGS DIM BUT CLEAR BUT OBVIOUS DAVON NOTED WITH OCCASSIONAL DESATS DOWN TO MID-HIGH 90'S-PRN IV DILAUDID FOR C/O DISCOMFORT WHICH IS EFFECTIVE- REMAINS IN SINUS TACH WITHOUT ECTOPY- IVF AND ANTIBIOTIC CONTINUE
[2021-06-02] MEDS: ACETAMINOPHEN 325 MG TABLET 650 MG PO ×2 (14:08→21:12)
[2021-06-02 14:35] LABS: Urine N gonorrhoeae NOT DETECTED
[2021-06-02 14:48] LABS: Urine Chlamydia NOT DETECTED
--- NOTE | 2021-06-02 15:50 | P.PN_ITS ---
Subjective Subjective Date Patient Seen: 06/02/21 Time Patient Seen: 15:50 Interval history: Still with complaints of pain, fever, testicular pain. Redness does appear to be improving. Exam Vital Signs (past 8 hours): - 06/02/21 07:58 06/02/21 08:10 06/02/21 10:08 Temperature Pulse Rate Respiratory Rate Blood Pressure Pulse Oximetry 97 92 91 06/02/21 11:04 06/02/21 12:19 06/02/21 14:00 Temperature Pulse Rate 119 H Respiratory Rate 37 H Blood Pressure 165/79 H Pulse Oximetry 91 06/02/21 14:08 Temperature 101.9 F H Pulse Rate Respiratory Rate Blood Pressure Pulse Oximetry Oxygen Delivery Method Room Air Oxygen Flow Rate 0 Narrative Exam Narrative: General:? Patient is well developed and well nourished, obese with BMI 56, appears acutely ill. HEENT:? Normocephalic, atraumatic, extraocular muscles intact, oral pharynx is clear and mucous membranes are moist. Neck: supple and symmetric, trachea is midline, no cervical adenopathy. Negative for JVD Chest:? Normal AP diameter and contour without kyphoscoliosis, no tachypnea, equal chest rise bilaterally. Lungs:? CTA b/l no wheezing rhonchi or rales. poor effort and decreased air movement at the lung bases. Cardio:?tachycardic with regular rhythm, no m/r/g. Abdomen: S suprapubic tenderness, no distension. groin as noted below in skin. : scrotal tenderness with minimal palpation. no penile lesions noted. brink in place. tender lymphadenopathy in the groin bilaterally. Musculoskeletal:? Muscle strength and tone are equal within normal limits, no deformity. Extremities: No edema or joint effusions. No cyanosis or clubbing. Skin:?entire groin and lower abdomen with probable fungal rash, scrotum is tender. No necrosis is evident, no significant erythema but area is warm. Neuro:? Alert and orientated x3,? sensation to touch intact in all extremities, no gross deficits noted of cranial nerves. Psych:? Patient has a well-kept appearance, appropriate affect, mental status attitude thought context and judgment are appropriate for age. Objective Labs Result Diagrams: 06/02/21 06:22 06/02/21 06:22 Labs: Laboratory Results - last 24 hr 06/01/21 06/01/21 06/01/21 15:00 16:42 16:42 WBC 16.4 H RBC 5.60 Hgb 14.9 Hct 46.3 MCV 82.6 MCH 26.6 MCHC 32.2 RDW 15.4 H Plt Count 246 Neut % (Auto) 90.1 H Lymph % (Auto) 4.5 L [place] % (Auto) 5.0 Eos % (Auto) 0.1 L Baso % (Auto) 0.3 Neut # (Auto) 87093 H Lymph # (Auto) 700 L [place] # (Auto) 800 Eos # (Auto) 0 Baso # (Auto) 0 Total Counted Seg Neutrophils % Band Neutrophils % Lymphocytes % (Manual) Monocytes % (Manual) Metamyelocytes % Neutrophils # (Manual) RBC Morphology ESR PT 12.2 INR 1.1 APTT 31 Sodium Potassium Chloride Carbon Dioxide BUN Creatinine Estimated GFR BUN/Creatinine Ratio Glucose Hemoglobin A1c Lactate Calcium Magnesium Total Bilirubin AST ALT Alkaline Phosphatase Lactate Dehydrogenase C-Reactive Protein NT-Pro-B Natriuret Pep Total Protein Albumin Globulin Albumin/Globulin Ratio Lipase Procalcitonin Urine RBC 0-1/hpf Urine WBC 1-5/hpf Ur Squamous Epith Cells 1-5 /hpf Amorphous Sediment 1+ Urine Bacteria Few (2-10) H Urine Mucus 1+ H Urine Sperm 2-5 motile Ur Culture Indicated? Specimen cultured Nasal Screen MRSA (PCR) U Opiates 300ng/mL cut Ur Oxycodone Screen Urine Methadone Screen Ur Barbiturates Screen U Tricyclic Antidepress Ur Phencyclidine Scrn Ur Amphetamines Screen U Methamphetamines Scrn Ur MDMA Scrn (Ecstasy) U Benzodiazepines Scrn Urine Cocaine Screen U Marijuana (THC) Screen Ur Chlamydia DNA (PCR) N gonorrhoeae DNA (PCR) 06/01/21 06/01/21 06/01/21 16:42 16:42 16:42 WBC RBC Hgb Hct MCV MCH MCHC RDW Plt Count Neut % (Auto) Lymph % (Auto) [place] % (Auto) Eos % (Auto) Baso % (Auto) Neut # (Auto) Lymph # (Auto) [place] # (Auto) Eos # (Auto) Baso # (Auto) Total Counted Seg Neutrophils % Band Neutrophils % Lymphocytes % (Manual) Monocytes % (Manual) Metamyelocytes % Neutrophils # (Manual) RBC Morphology ESR PT INR APTT Sodium 138 Potassium 4.1 Chloride 102 Carbon Dioxide 29 BUN 17 Creatinine 1.14 Estimated GFR > 60.0 BUN/Creatinine Ratio 14.9 Glucose 124 H Hemoglobin A1c Lactate 2.1 Calcium 9.4 Magnesium Total Bilirubin 0.5 AST 26 ALT 27 Alkaline Phosphatase 59 Lactate Dehydrogenase C-Reactive Protein NT-Pro-B Natriuret Pep Total Protein 9.1 H Albumin 4.7 Globulin 4.4 H Albumin/Globulin Ratio 1.1 Lipase 66 Procalcitonin 0.30 Urine RBC Urine WBC Ur Squamous Epith Cells Amorphous Sediment Urine Bacteria Urine Mucus Urine Sperm Ur Culture Indicated? Nasal Screen MRSA (PCR) U Opiates 300ng/mL cut Negative Ur Oxycodone Screen Negative Urine Methadone Screen Negative Ur Barbiturates Screen Negative U Tricyclic Antidepress Negative Ur Phencyclidine Scrn Negative Ur Amphetamines Screen Negative U Methamphetamines Scrn Negative Ur MDMA Scrn (Ecstasy) Negative U Benzodiazepines Scrn Negative Urine Cocaine Screen Negative U Marijuana (THC) Screen Negative Ur Chlamydia DNA (PCR) N gonorrhoeae DNA (PCR) 06/01/21 06/01/21 06/01/21 16:42 16:42 16:42 WBC RBC Hgb Hct MCV MCH MCHC RDW Plt Count Neut % (Auto) Lymph % (Auto) [place] % (Auto) Eos % (Auto) Baso % (Auto) Neut # (Auto) Lymph # (Auto) [place] # (Auto) Eos # (Auto) Baso # (Auto) Total Counted Seg Neutrophils % Band Neutrophils % Lymphocytes % (Manual) Monocytes % (Manual) Metamyelocytes % Neutrophils # (Manual) RBC Morphology ESR PT INR APTT Sodium Potassium Chloride Carbon Dioxide BUN Creatinine Estimated GFR BUN/Creatinine Ratio Glucose Hemoglobin A1c Lactate Calcium Magnesium 1.8 Total Bilirubin AST ALT Alkaline Phosphatase Lactate Dehydrogenase C-Reactive Protein 1.0 NT-Pro-B Natriuret Pep 23 Total Protein Albumin Globulin Albumin/Globulin Ratio Lipase Procalcitonin Urine RBC Urine WBC Ur Squamous Epith Cells Amorphous Sediment Urine Bacteria Urine Mucus Urine Sperm Ur Culture Indicated? Nasal Screen MRSA (PCR) U Opiates 300ng/mL cut Ur Oxycodone Screen Urine Methadone Screen Ur Barbiturates Screen U Tricyclic Antidepress Ur Phencyclidine Scrn Ur Amphetamines Screen U Methamphetamines Scrn Ur MDMA Scrn (Ecstasy) U Benzodiazepines Scrn Urine Cocaine Screen U Marijuana (THC) Screen Ur Chlamydia DNA (PCR) N gonorrhoeae DNA (PCR) 06/01/21 06/01/21 06/02/21 16:42 18:42 00:32 WBC RBC Hgb Hct MCV MCH MCHC RDW Plt Count Neut % (Auto) Lymph % (Auto) [place] % (Auto) Eos % (Auto) Baso % (Auto) Neut # (Auto) Lymph # (Auto) [place] # (Auto) Eos # (Auto) Baso # (Auto) Total Counted Seg Neutrophils % Band Neutrophils % Lymphocytes % (Manual) Monocytes % (Manual) Metamyelocytes % Neutrophils # (Manual) RBC Morphology ESR PT INR APTT Sodium Potassium Chloride Carbon Dioxide BUN Creatinine Estimated GFR BUN/Creatinine Ratio Glucose Hemoglobin A1c Lactate 2.3 H Calcium Magnesium Total Bilirubin AST ALT Alkaline Phosphatase Lactate Dehydrogenase C-Reactive Protein NT-Pro-B Natriuret Pep Total Protein Albumin Globulin Albumin/Globulin Ratio Lipase Procalcitonin Urine RBC Urine WBC Ur Squamous Epith Cells Amorphous Sediment Urine Bacteria Urine Mucus Urine Sperm Ur Culture Indicated? Nasal Screen MRSA (PCR) Negative for mrsa U Opiates 300ng/mL cut Ur Oxycodone Screen Urine Methadone Screen Ur Barbiturates Screen U Tricyclic Antidepress Ur Phencyclidine Scrn Ur Amphetamines Screen U Methamphetamines Scrn Ur MDMA Scrn (Ecstasy) U Benzodiazepines Scrn Urine Cocaine Screen U Marijuana (THC) Screen Ur Chlamydia DNA (PCR) Not detected N gonorrhoeae DNA (PCR) Not detected 06/02/21 06/02/21 06/02/21 06:22 06:22 06:22 WBC 27.4 H D RBC 4.99 Hgb 13.3 L Hct 41.5 MCV 83.2 MCH 26.7 MCHC 32.1 RDW 15.5 H Plt Count 219 Neut % (Auto) Not Reportable Lymph % (Auto) Not Reportable [place] % (Auto) Not Reportable Eos % (Auto) Not Reportable Baso % (Auto) Not Reportable Neut # (Auto) Lymph # (Auto) Not Reportable [place] # (Auto) Not Reportable Eos # (Auto) Baso # (Auto) Not Reportable Total Counted 100 Seg Neutrophils % 81.0 H Band Neutrophils % 12.0 H Lymphocytes % (Manual) 2.0 L Monocytes % (Manual) 4.0 Metamyelocytes % 1.0 H Neutrophils # (Manual) 82844 H RBC Morphology Norm ESR 10 PT 14.0 H INR 1.3 APTT Sodium Potassium Chloride Carbon Dioxide BUN Creatinine Estimated GFR BUN/Creatinine Ratio Glucose Hemoglobin A1c Lactate Calcium Magnesium Total Bilirubin AST ALT Alkaline Phosphatase Lactate Dehydrogenase C-Reactive Protein NT-Pro-B Natriuret Pep Total Protein Albumin Globulin Albumin/Globulin Ratio Lipase Procalcitonin Urine RBC Urine WBC Ur Squamous Epith Cells Amorphous Sediment Urine Bacteria Urine Mucus Urine Sperm Ur Culture Indicated? Nasal Screen MRSA (PCR) U Opiates 300ng/mL cut Ur Oxycodone Screen Urine Methadone Screen Ur Barbiturates Screen U Tricyclic Antidepress Ur Phencyclidine Scrn Ur Amphetamines Screen U Methamphetamines Scrn Ur MDMA Scrn (Ecstasy) U Benzodiazepines Scrn Urine Cocaine Screen U Marijuana (THC) Screen Ur Chlamydia DNA (PCR) N gonorrhoeae DNA (PCR) 06/02/21 06/02/21 06/02/21 06:22 06:22 06:22 WBC RBC Hgb Hct MCV MCH MCHC RDW Plt Count Neut % (Auto) Lymph % (Auto) [place] % (Auto) Eos % (Auto) Baso % (Auto) Neut # (Auto) Lymph # (Auto) [place] # (Auto) Eos # (Auto) Baso # (Auto) Total Counted Seg Neutrophils % Band Neutrophils % Lymphocytes % (Manual) Monocytes % (Manual) Metamyelocytes % Neutrophils # (Manual) RBC Morphology ESR PT INR APTT Sodium 138 Potassium 4.3 Chloride 106 Carbon Dioxide 27 BUN 19 Creatinine 1.39 H Estimated GFR 54.3 L BUN/Creatinine Ratio 13.7 Glucose 138 H Hemoglobin A1c 6.0 Lactate 1.5 Calcium 8.0 L Magnesium Total Bilirubin 0.4 AST 23 ALT 23 Alkaline Phosphatase 46 Lactate Dehydrogenase 378 C-Reactive Protein NT-Pro-B Natriuret Pep Total Protein 7.7 Albumin 3.9 Globulin 3.8 Albumin/Globulin Ratio 1.0 Lipase Procalcitonin Urine RBC Urine WBC Ur Squamous Epith Cells Amorphous Sediment Urine Bacteria Urine Mucus Urine Sperm Ur Culture Indicated? Nasal Screen MRSA (PCR) U Opiates 300ng/mL cut Ur Oxycodone Screen Urine Methadone Screen Ur Barbiturates Screen U Tricyclic Antidepress Ur Phencyclidine Scrn Ur Amphetamines Screen U Methamphetamines Scrn Ur MDMA Scrn (Ecstasy) U Benzodiazepines Scrn Urine Cocaine Screen U Marijuana (THC) Screen Ur Chlamydia DNA (PCR) N gonorrhoeae DNA (PCR) [facility] Medical History Chronic low back pain Morbid obesity Family History Father Diabetes mellitus Cancer Mother Healthy adult Social History household members: none Smoking Status: Former smoker alcohol intake: current Assessment & Plan Assessment & Plan narrative: Kenan Dougherty is a 51-year-old male with only noted history of morbid obesity who presented to the ED with scrotal cellulitis, inguinal lymphadenopathy, and high fevers. Admitted with sepsis secondary to inguinal / genital infection of uncertain etiology. 1. scrotal cellulitis with inguinal lymphadenopathy and epididymitis, acute, present on admission. Sepsis ruled out. -SIRS evidence by temp of 103.2?, HR 120 RR 30, WBC 16.4, lactic acid 2.3. SOFA score 1 currently with renal function. Some concern for skin and soft tissue necrotizing infection but no gas on imaging, two surgeons consulted in ER. Continue to monitor. LRINIC score indicates low risk currently. -WBC increased to 27 today from 16. Fevers continue but curve downtrending since yesterday. -HIV pending, urine G/C negative. Denies intercourse for >1 year, no prior STIs known. -DVT study (? infected thrombosis) was negative. -continue broad spectrium antibiotics, pip/tazo and vanco currently. Monitor renal function. -blood and urine cultures obtained -Brink placed monitors strict I&O -ordered vanco per pharmacy -consider ID consultation, try to obtain records from [facility] hospitalization for similar, consider referral for outpatient biopsy of lymphadenopathy as outpatient. 2. Morbidly obese as evidence by BMI 56.3, acute on chronic, present on admi ssion -Dietary consult ordered -patient's morbid obesity will greatly impact his ability to heal and impair his medical management 3. Pre-diabetes A1c 6.0%, recommend dietary interventions. Code status:? Full Surrogate decision maker:? Sister Dina WILLIAMSON PCR:? Negative DVT/VTE prophylaxis:? Lovenox and SCDs Disposition:? Admitted inpatient. Time Spent With Patient Critical Care time: I spent a total of [] minutes of critical care time on this patient's care today; this time is exclusive of procedural time. Scores SOFA PaO2/FIO2: >=400 mmHg Platelets: >= 150 Bilirubin: < 1.2 mg/dL Hypotension: MAP >= 70 mmHg [place] Coma Scale: 15 Renal: Creatinine 1.2-1.9 mg/dL SOFA Score: 1 Quality VTE Deep Vein Thrombosis/Pulmonary Embolism Present on Admission: No
--- NOTE | 2021-06-02 17:01 | CM.SWNOTE ---
DCP Assessment Note Patient is 51 y/o male who presents to hospital due to concern for SOB and groin pain. Patient's PCP is Dr. Silvina Cartwright at [facility]. Patient has Healthcare management and [facility] insurance providers. [employer] MANAGER enters room to meet with patient. Patient is A/Ox4. Patient endorses he resides in an apartment by himself. Patient endorses supports from mother and sister who live locally. Patient denies issues with ADLs. Patient endorses he is connected with resources through [facility]. Patient denies any needs from [employer] MANAGER at this time. Plan: Patient requires further medical evaluation, DCP to f/u with POC. KIKA Arguelles Discharge Planning/Care Management CM Discharge Assessment Start: 06/02/21 16:59 Freq: Status: Active Protocol: Document 06/02/21 16:59 LN (Rec: 06/02/21 17:01 LN [id number]) Discharge Planning Assessment Assigned Rigger Supervisor KIKA Treviño Advance Directives? No Advance Directives on File No History Provided By Patient,Medical Record Has Patient been admitted in last 30 No days? Prior Living Arrangements Apartment/Condo Household Members none Type of transporation used prior to Drives own vehicle admit Independent with ADL's Yes Is patient alert and oriented? Yes Please Provide Date Initial DC 06/02/21 Assessment Was Performed
[2021-06-02] MEDS: VANCOMYCIN 2,000 MG/400 ML PIGGYBACK 200 MG IV (21:12)
[2021-06-02] MEDS: NYSTATIN POWDER 15GM 1 APPLIC TOP (21:13)
[2021-06-02 22:24] LABS: HIV 1 & 2 Ab/Ag 4th Gen Combo NEGATIVE (NEGATIVE)
[2021-06-03] VITALS (26 sets, daily range): BP systolic 101–178; BP diastolic 53–99; PULSE 95–105; RESP 13–35; TEMP 36.8–38.3; O2SAT 92–98
[2021-06-03] MEDS: SODIUM CHLORIDE 0.9% 1,000 ML 100 ML IV (00:01)
[2021-06-03] MEDS: PIPERACILLIN/TAZO 3.375 GM in SODIUM CHLORIDE 0.9% 100 ML 25 ML IV ×3 (00:03→16:42)
[2021-06-03] MEDS: TRAMADOL 50 MG TABLET 100 MG PO (02:31)
[2021-06-03] MEDS: ONDANSETRON 4 MG/2 ML INJ IV (03:04)
[2021-06-03] MEDS: ACETAMINOPHEN 325 MG TABLET 650 MG PO ×2 (03:14→17:20)
[2021-06-03] MEDS: ENOXAPARIN 40 MG/0.4 ML SYRINGE SUBCUT ×2 (08:55→21:07)
[2021-06-03] MEDS: NYSTATIN POWDER 15GM 1 APPLIC TOP ×2 (12:00→21:08)
--- NOTE | 2021-06-03 12:31 | PM.PN.1 ---
Subjective Subjective Date Patient Seen: 06/03/21 Time Patient Seen: 12:31 Interval history: Pain is much improved today. Did have a fever last night to 100.5, but curve is downtrending. Requesting records from [facility] todayy. Exam Vital Signs (past 8 hours): - 06/03/21 04:45 06/03/21 06:00 06/03/21 08:00 Temperature 98.6 F 98.2 F Pulse Rate 95 H 100 H Respiratory Rate 17 20 Blood Pressure 101/53 L 175/99 H Pulse Oximetry 96 92 94 06/03/21 11:25 Temperature Pulse Rate Respiratory Rate Blood Pressure Pulse Oximetry 96 Oxygen Delivery Method Nasal Cannula Oxygen Flow Rate 3 Narrative Exam Narrative: General:? Patient is well developed and well nourished, obese with BMI 56, no acute distress. HEENT:? Normocephalic, atraumatic, extraocular muscles intact, oral pharynx is clear and mucous membranes are moist. Neck: supple and symmetric, trachea is midline, no cervical adenopathy. Negative for JVD Chest:? Normal AP diameter and contour without kyphoscoliosis, no tachypnea, equal chest rise bilaterally. Lungs:? CTA b/l no wheezing rhonchi or rales. poor effort and decreased air movement at the lung bases. Cardio:?tachycardic with regular rhythm, no m/r/g. Abdomen: S suprapubic tenderness, no distension. groin as noted below in skin. : scrotal tenderness with minimal palpation. no penile lesions noted. brink in place. tender lymphadenopathy in the groin bilaterally. Musculoskeletal:? Muscle strength and tone are equal within normal limits, no deformity. Extremities: No edema or joint effusions. No cyanosis or clubbing. Skin:?entire groin and lower abdomen with probable fungal rash, scrotum is tender but much improved. No necrosis is evident, no significant erythema. Neuro:? Alert and orientated x3,? sensation to touch intact in all extremities, no gross deficits noted of cranial nerves. Psych:? Patient has a well-kept appearance, appropriate affect, mental status attitude thought context and judgment are appropriate for age. Objective Labs Result Diagrams: 06/02/21 06:22 06/02/21 06:22 Labs: Laboratory Results - last 24 hr 03/07/22 03/08/22 16:42 06:22 Ur Chlamydia DNA (PCR) Not detected HIV 1&2 Ab/P24 Ag 4thGn Negative N gonorrhoeae DNA (PCR) Not detected [facility] Medical History Chronic low back pain Morbid obesity Family History Father Diabetes mellitus Cancer Mother Healthy adult Social History household members: none Smoking Status: Former smoker alcohol intake: current Assessment & Plan Assessment & Plan narrative: Kenan Dougherty is a 51-year-old male with only noted history of morbid obesity who presented to the ED with scrotal cellulitis, inguinal lymphadenopathy, and high fevers. Admitted with sepsis secondary to inguinal / genital infection of uncertain etiology. 1. scrotal cellulitis with inguinal lymphadenopathy and epididymitis, acute, present on admission. Sepsis ruled out. -SIRS evidence by temp of 103.2?, HR 120 RR 30, WBC 16.4, lactic acid 2.3. SOFA score 1 currently with renal function. Some concern for skin and soft tissue necrotizing infection but no gas on imaging, two surgeons consulted in ER. Continue to monitor. LRINIC score indicates low risk currently. -WBC increased to 27 from 16, repeat pending today. Fevers continue but curve downtrending still. -HIV pending, urine G/C negative. Denies intercourse for >1 year, no prior STIs known. -DVT study (? infected thrombosis) was negative. -continue broad spectrium antibiotics, pip/tazo and vanco currently. Monitor renal function. Consider narrowing and changing to oral antibiotics tomorrow if cultures remain negative. -blood and urine cultures obtained, currently negative. -Brink placed monitors strict I&O, can discontinue today. -ordered vanco per pharmacy -consider ID consultation, try to obtain records from [facility] hospitalization for similar, consider referral for outpatient biopsy of lymphadenopathy as outpatient. 2. Morbidly obese as evidence by BMI 56.3, acute on chronic, present on admission -Dietary consult ordered -patient's morbid obesity will greatly impact his ability to heal and impair his medical management 3. Pre-diabetes ?A1c 6.0%, recommend dietary interventions. Patient is interested in bariatric surgery possibly, which was discussed and encouraged. 4. DAVON - intermittent hypoxia with rest. Had outpatient sleep study. CPAP at night. Code status:? Full Surrogate decision maker:? Sister Dina WILLIAMSON PCR:? Negative DVT/VTE prophylaxis:? Lovenox and SCDs Disposition:? Admitted inpatient. Time Spent With Patient Critical Care time: I spent a total of [] minutes of critical care time on this patient's care today; this time is exclusive of procedural time. Quality VTE Deep Vein Thrombosis/Pulmonary Embolism Present on Admission: No
[2021-06-03 14:08] LABS: Add Manual Diff / Slide Review NO; Basophils Absolute Auto 0 /uL (0-100); Basophils Percent Auto 0.2 % (0-2); Eosinophils Absolute Auto 0 /uL (0-450); Hematocrit 39.3 % (41-53); Hemoglobin 12.7 g/dL (13.5-17.5); Lymphocytes Absolute Auto 1300 /uL (1100-4500); Lymphocytes Percent Auto 7.1 % (25-40); Mean Corpuscular HGB Conc 32.4 % (30-36); Mean Corpuscular Hemoglobin 26.5 PG (26-34); Mean Corpuscular Volume 81.8 fL (80-100); Monocytes Absolute Auto 1000 /uL (0-900); Monocytes Percent Auto 5.8 % (3-14); Neutrophils Absolute Auto 15400 /uL (1500-7000); Neutrophils Percent Auto 86.9 % (50-75); Platelet Count 205 X10^3/uL (150-400); Red Blood Cell Count 4.81 X10^6/uL (4.5-5.9); Red Cell Distribution Width 15.6 % (11.6-14.8); White Blood Cell Count 17.7 X10^3/uL (4.5-11.0)
[2021-06-03 14:17] LABS: Alanine Aminotransferase 43 IU/L (<50); Albumin 3.9 g/dL (3.5-5.0); Alkaline Phosphatase 61 U/L (38-126); Aspartate Aminotransferase 39 IU/L (17-59); BUN Creatinine Ratio 8.7 (6-22); Bilirubin Total 0.4 mg/dL (0.2-1.3); Blood Urea Nitrogen 8 mg/dL (9-20); Calcium 8.3 mg/dL (8.4-10.2); Carbon Dioxide 31 mmol/L (22-32); Chloride 101 mmol/L (98-107); Estimated Glomerular Filt Rate > 60.0 mL/min (>60); Glucose 122 mg/dL (70-100); HEMOLYSIS < 15 (0-50); Sodium 133 mmol/L (137-145); Total Protein 7.9 g/dL (6.3-8.2)
[2021-06-03] MEDS: OXYCODONE IR 10 MG TABLET PO (17:20)
--- NOTE | 2021-06-03 19:34 | PC.NURSE ---
Pt having a harder day than usual. Found out the ultram and other meds for pain were not helping him. Got an order for oxy, gave a dose. Temp also went up at the same time to 101.0. Pt is very diaphoretic. O2 sats more border line at 90-94%. O2 was reapplied. (He had been on it earlier). Pain is decreasing. However arrived and she was quite concerned about his leg, she felt it had more edema and was warmer and redder than before. Dr. Carvajal had already been called about pt twice before, once for pain medication and then for the temp. He was called a third time about spouses concerns. Dr. Carvajal said he would come and see pt and spouse.
[2021-06-03] MEDS: VANCOMYCIN 2,000 MG/400 ML PIGGYBACK 200 MG IV (21:07)
[2021-06-04] VITALS (14 sets, daily range): BP systolic 124–170; BP diastolic 58–91; PULSE 85–112; RESP 18–22; TEMP 36.3–37.5; O2SAT 92–98
[2021-06-04] MEDS: ACETAMINOPHEN 325 MG TABLET 650 MG PO ×2 (00:14→11:08)
[2021-06-04] MEDS: PIPERACILLIN/TAZO 3.375 GM in SODIUM CHLORIDE 0.9% 100 ML 25 ML IV ×2 (00:15→08:40)
[2021-06-04] MEDS: ONDANSETRON 4 MG/2 ML INJ IV ×2 (00:57→05:09)
[2021-06-04] MEDS: KETOROLAC 30 MG/ML VIAL IV (05:21)
[2021-06-04 05:28] LABS: Add Manual Diff / Slide Review NO; Basophils Absolute Auto 0 /uL (0-100); Basophils Percent Auto 0.3 % (0-2); Eosinophils Absolute Auto 0 /uL (0-450); Eosinophils Percent Auto 0.3 % (2-4); Hematocrit 38.7 % (41-53); Hemoglobin 12.5 g/dL (13.5-17.5); Lymphocytes Absolute Auto 1900 /uL (1100-4500); Lymphocytes Percent Auto 12.3 % (25-40); Mean Corpuscular HGB Conc 32.2 % (30-36); Mean Corpuscular Hemoglobin 26.3 PG (26-34); Mean Corpuscular Volume 81.7 fL (80-100); Monocytes Absolute Auto 1300 /uL (0-900); Monocytes Percent Auto 8.4 % (3-14); Neutrophils Absolute Auto 11900 /uL (1500-7000); Neutrophils Percent Auto 78.7 % (50-75); Platelet Count 220 X10^3/uL (150-400); Red Blood Cell Count 4.74 X10^6/uL (4.5-5.9); Red Cell Distribution Width 15.1 % (11.6-14.8); White Blood Cell Count 15.2 X10^3/uL (4.5-11.0)
[2021-06-04 05:35] LABS: Alanine Aminotransferase 41 IU/L (<50); Albumin 3.7 g/dL (3.5-5.0); Alkaline Phosphatase 65 U/L (38-126); Aspartate Aminotransferase 35 IU/L (17-59); BUN Creatinine Ratio 8.4 (6-22); Bilirubin Total 0.4 mg/dL (0.2-1.3); Blood Urea Nitrogen 8 mg/dL (9-20); Calcium 8.4 mg/dL (8.4-10.2); Carbon Dioxide 33 mmol/L (22-32); Chloride 102 mmol/L (98-107); Estimated Glomerular Filt Rate > 60.0 mL/min (>60); Globulin 3.8 g/dL (1.7-4.1); Glucose 113 mg/dL (70-100); HEMOLYSIS < 15 (0-50); Potassium 4.2 mmol/L (3.4-5.1); Sodium 137 mmol/L (137-145); Total Protein 7.5 g/dL (6.3-8.2)
--- NOTE | 2021-06-04 06:31 | PC.NURSE ---
Shift Note-Patient's pain has been controlled with Tylenol, IV Toradol, and oxycodone, however, he says he doesn't like how the oxycodone makes him feel. Zofran given for nausea, scant emesis. Afebrile, SR/ST, Blood cultures drawn as ordered. Ambulates into BR to use urinal, voided 2700ml overnight, had large BM in am. Had visit from [place].
[2021-06-04] MEDS: ENOXAPARIN 40 MG/0.4 ML SYRINGE SUBCUT ×2 (08:40→21:31)
[2021-06-04] MEDS: NYSTATIN POWDER 15GM 1 APPLIC TOP ×2 (08:41→21:32)
[2021-06-04] MEDS: DOXYCYCLINE HYCLATE 100 MG TABLET PO ×2 (11:06→21:31)
[2021-06-04] MEDS: HYDROMORPHONE 2 MG TABLET PO (11:09)
--- NOTE | 2021-06-04 15:28 | PM.PN.1 ---
Subjective Subjective Date Patient Seen: 06/04/21 Time Patient Seen: 15:31 Interval history: Pain is much improved today. Did have a fever last night again. Added doxycycline today. Transitioned to oral antibiotics. Exam Vital Signs (past 8 hours): - 06/04/21 08:09 06/04/21 11:00 06/04/21 11:23 Temperature 97.3 F L Pulse Rate Respiratory Rate 18 Blood Pressure 170/91 H Pulse Oximetry 92 97 94 06/04/21 12:00 06/04/21 15:00 Temperature 99.0 F Pulse Rate 85 Respiratory Rate 22 Blood Pressure 128/75 Pulse Oximetry 98 95 Oxygen Delivery Method Room Air Oxygen Flow Rate 0 Narrative Exam Narrative: General:? Patient is well developed and well nourished, obese with BMI 56, no acute distress. HEENT:? Normocephalic, atraumatic, extraocular muscles intact, oral pharynx is clear and mucous membranes are moist. Neck: supple and symmetric, trachea is midline, no cervical adenopathy. Negative for JVD Chest:? Normal AP diameter and contour without kyphoscoliosis, no tachypnea, equal chest rise bilaterally. Lungs:? CTA b/l no wheezing rhonchi or rales. poor effort and decreased air movement at the lung bases. Cardio:?tachycardic with regular rhythm, no m/r/g. Abdomen: S suprapubic tenderness, no distension. groin as noted below in skin. : scrotal tenderness with minimal palpation. no penile lesions noted. brink in place. tender lymphadenopathy in the groin bilaterally. Musculoskeletal:? Muscle strength and tone are equal within normal limits, no deformity. Extremities: No edema or joint effusions. No cyanosis or clubbing. Skin:?entire groin and lower abdomen with probable fungal rash, scrotum is tender but much improved. No necrosis is evident, no significant erythema. Neuro:? Alert and orientated x3,? sensation to touch intact in all extremities, no gross deficits noted of cranial nerves. Psych:? Patient has a well-kept appearance, appropriate affect, mental status attitude thought context and judgment are appropriate for age. Objective Labs Result Diagrams: 06/04/21 04:34 06/04/21 04:34 Labs: Laboratory Results - last 24 hr 06/04/21 06/04/21 04:34 04:34 WBC 15.2 H RBC 4.74 Hgb 12.5 L Hct 38.7 L MCV 81.7 MCH 26.3 MCHC 32.2 RDW 15.1 H Plt Count 220 Neut % (Auto) 78.7 H Lymph % (Auto) 12.3 L [place] % (Auto) 8.4 Eos % (Auto) 0.3 L Baso % (Auto) 0.3 Neut # (Auto) 11190 H Lymph # (Auto) 1900 [place] # (Auto) 1300 H Eos # (Auto) 0 Baso # (Auto) 0 Sodium 137 Potassium 4.2 Chloride 102 Carbon Dioxide 33 H BUN 8 L Creatinine 0.95 Estimated GFR > 60.0 BUN/Creatinine Ratio 8.4 Glucose 113 H Calcium 8.4 Total Bilirubin 0.4 AST 35 ALT 41 Alkaline Phosphatase 65 Total Protein 7.5 Albumin 3.7 Globulin 3.8 Albumin/Globulin Ratio 1.0 [facility] Medical History Chronic low back pain Morbid obesity Family History Father Diabetes mellitus Cancer Mother Healthy adult Social History household members: none Smoking Status: Former smoker alcohol intake: current Assessment & Plan Assessment & Plan narrative: Kenan Dougherty is a 51-year-old male with only noted history of morbid obesity who presented to the ED with scrotal cellulitis, inguinal lymphadenopathy, and high fevers. Admitted with sepsis secondary to inguinal / genital infection of uncertain etiology. 1. scrotal cellulitis with inguinal lymphadenopathy and epididymitis, acute, present on admission. Sepsis ruled out. -SIRS evidence by temp of 103.2?, HR 120 RR 30, WBC 16.4, lactic acid 2.3. SOFA score 1 currently with renal function. Some concern for skin and soft tissue necrotizing infection but no gas on imaging, two surgeons consulted in ER. Continue to monitor. LRINIC score indicates low risk currently. No progression and improvement making it much less likely. -WBC peaked at 27, improving today. -HIV negative, urine G/C negative. Denies intercourse for >1 year, no prior STIs known. -DVT study (? infected thrombosis) was negative. -continued broad spectrium antibiotics initially, pip/tazo and vanco initially but will narrow to cefdinir and doxycycline for cellulitis and epididymitis seen on ultrasound. -blood and urine cultures obtained, currently negative. -Brink placed monitors strict I&O, can discontinue today. -ordered vanco per pharmacy -consider ID consultation. 2. Morbidly obese as evidence by BMI 56.3, acute on chronic, present on admission -Dietary consult ordered -patient's morbid obesity will greatly impact his ability to heal and impair his medical management 3. Pre-diabetes ?A1c 6.0%, recommend dietary interventions. Patient is interested in bariatric surgery possibly, which was discussed and encouraged. 4. DAVON ?- intermittent hypoxia with rest. Had outpatient sleep study. CPAP at night. Code status:? Full Surrogate decision maker:? Sister Dina WILLIAMSON PCR:? Negative DVT/VTE prophylaxis:? Lovenox and SCDs Disposition:? Admitted inpatient. Time Spent With Patient Critical Care time: I spent a total of [] minutes of critical care time on this patient's care today; this time is exclusive of procedural time. Quality VTE Deep Vein Thrombosis/Pulmonary Embolism Present on Admission: No
[2021-06-04] MEDS: HYDROMORPHONE 4 MG TABLET PO ×2 (16:27→21:31)
[2021-06-04] MEDS: CEFDINIR 300 MG CAPSULE PO (21:30)
[2021-06-04] MEDS: SODIUM CHLORIDE 0.9% FLUSH 10 ML IV (21:31)
[2021-06-05] VITALS (8 sets, daily range): BP systolic 115–155; BP diastolic 57–84; PULSE 74–97; RESP 18–22; TEMP 36.4–37.2; O2SAT 92–94
[2021-06-05] MEDS: HYDROMORPHONE 4 MG TABLET PO ×4 (03:21→23:16)
[2021-06-05 05:29] LABS: Alanine Aminotransferase 47 IU/L (<50); Albumin 3.5 g/dL (3.5-5.0); Alkaline Phosphatase 76 U/L (38-126); Aspartate Aminotransferase 43 IU/L (17-59); BUN Creatinine Ratio 9.3 (6-22); Bilirubin Total 0.4 mg/dL (0.2-1.3); Blood Urea Nitrogen 8 mg/dL (9-20); Calcium 8.2 mg/dL (8.4-10.2); Carbon Dioxide 34 mmol/L (22-32); Chloride 101 mmol/L (98-107); Estimated Glomerular Filt Rate > 60.0 mL/min (>60); Globulin 3.6 g/dL (1.7-4.1); Glucose 129 mg/dL (70-100); HEMOLYSIS 20 (0-50); Sodium 136 mmol/L (137-145); Total Protein 7.1 g/dL (6.3-8.2)
[2021-06-05 05:32] LABS: Hematocrit 37.2 % (41-53); Mean Corpuscular HGB Conc 32.2 % (30-36); Mean Corpuscular Hemoglobin 26.5 PG (26-34); Mean Corpuscular Volume 82.1 fL (80-100); Platelet Count 243 X10^3/uL (150-400); Red Blood Cell Count 4.53 X10^6/uL (4.5-5.9); White Blood Cell Count 16.1 X10^3/uL (4.5-11.0)
[2021-06-05 05:35] LABS: Add Manual Diff / Slide Review YES
[2021-06-05 06:32] LABS: Anisocytosis 1+; Neutrophils Absolute Manual 12397 /uL (3000-5900); Total Cells Counted 100
[2021-06-05] MEDS: ACETAMINOPHEN 325 MG TABLET 650 MG PO ×2 (07:34→13:38)
[2021-06-05] MEDS: CEFDINIR 300 MG CAPSULE PO (08:23)
[2021-06-05] MEDS: DOXYCYCLINE HYCLATE 100 MG TABLET PO (08:23)
[2021-06-05] MEDS: ENOXAPARIN 40 MG/0.4 ML SYRINGE SUBCUT ×2 (08:23→20:00)
[2021-06-05] MEDS: NYSTATIN POWDER 15GM 1 APPLIC TOP ×2 (08:26→20:00)
--- NOTE | 2021-06-05 09:17 | DI.CT.S_ITS ---
PROCEDURE: CT LE LT W CON INDICATIONS: persistent fever,epididymitis and cellulitis, r/o abscess TECHNIQUE: After the administration of intravenous contrast, 3 mm axial sections acquired of the left lower extremity from left hip to left left calcaneus, with coronal and sagittal reformats. COMPARISON: None. FINDINGS: Image quality: Excellent. Bones: Left lower extremity alignment is anatomic. No acute fracture or dislocation. Mild left hip joint osteoarthritic changes are seen with joint space narrowing, subchondral sclerosis and small marginal osteophyte formation. No evidence of avascular necrosis of femoral head. Mild to moderate tricompartmental osteoarthritis in left knee is seen. Ankle mortise is congruent. No suspicious intraosseous lesion is noted. No bony erosive changes or periosteal reaction is seen. Soft tissues: Prominent lymph nodes are seen in right inguinal region extending to medial aspect of upper thigh measures up to 2.7 x 5.2 cm in size series 3, image 109 and series 6, image 29. Significant subcutaneous fat stranding and overlying skin thickening throughout mid to distal left thigh and throughout left lower leg extending to ankle and hindfoot is seen. No discrete peripheral enhancing fluid collection is noted to suggest abscess fluid. Moderate amount of fluid anterior to muscle fascia along anterior and lateral aspect of extensor muscles is seen, early fasciitis cannot be entirely excluded. IMPRESSION: 1. Extensive cellulitis in mid to distal left thigh and throughout left lower leg extending to ankle and hindfoot. No discrete drainable abscess collection is seen. Fluid along extensor muscle fascia in anterior lateral left lower leg, early fasciitis cannot be excluded. 2. Enlarged right inguinal and medial upper thigh lymph nodes suggestive of reactive inflammatory lymphadenopathy. 3. Left hip and left knee joint osteoarthritis. No fracture or dislocation. No evidence of avascular necrosis. Dictated by: Tomás Poon M.D. on 06/05/2021 at 11:22 Approved by: Tomás Poon M.D. on 06/05/2021 at 11:43
--- NOTE | 2021-06-05 09:18 | DI.CT.S_ITS ---
PROCEDURE: CT PELVIS W CON INDICATIONS: persistent fever,epididymitis and cellulitis,r/o abscess TECHNIQUE: After the administration of intravenous contrast, 5 mm thick sections acquired from the iliac crests to the symphysis. 5 mm coronal and sagittal reformats were acquired. For radiation dose reduction, the following was used: automated exposure control, adjustment of mA and/or kV according to patient size. COMPARISON: None. FINDINGS: Image quality: Excellent. Peritoneum and bowel: Bowel loops demonstrate normal wall thickness and caliber. No free fluid or air. Visualized portion of right kidney show no hydronephrosis or renal stone. No hydroureter. Genitourinary: Bladder wall thickness is normal. Nodes and vessels: Markedly enlarged left inguinal lymph nodes are seen extending to visualized portion of medial left upper thigh and measures up to 2.5 cm in short axis diameter series 3, image 60. Small lymph nodes are seen in right inguinal region measures up to 8 mm in short axis diameter. Enlarged retroperitoneal lymph nodes and along left iliac vessels are seen measures up to 2.1 cm in short axis diameter series 3, image 19. 2 cm left external iliac node is also seen series 3, image 27. Iliac vessels demonstrate normal size and enhancement. Bones: No suspicious bony lesions. No bony erosive changes. Osteoarthritis throughout bony pelvis is seen. Miscellaneous: No inguinal hernias. IMPRESSION: 1. Enlarged retroperitoneal, left iliac and left inguinal lymph nodes as described above suggestive of reactive inflammatory lymphadenopathy. 2. No abscess collection is seen. No peritoneal free fluid or free air. 3. Bilateral hip joint osteoarthritis. No evidence of osteomyelitis. No fracture or dislocation. Dictated by: Tomás Poon M.D. on 06/05/2021 at 11:47 Approved by: Tomás Poon M.D. on 06/05/2021 at 11:50
--- NOTE | 2021-06-05 11:42 | P.PN_ITS ---
Subjective Subjective Date Patient Seen: 06/05/21 Time Patient Seen: 11:42 Interval history: Pain slightly worsened today, more erythematous and warmth on legs today. No fevers however last night but WBC is up today. Transitioned to oral antibiotics. Given progression and lack of improvement will repeat CT today of pelvis and LE to see if any possible abscess. Exam Vital Signs (past 8 hours): - 06/05/21 07:00 06/05/21 07:30 06/05/21 11:00 Temperature 97.9 F 97.5 F L Pulse Rate 97 H 74 Respiratory Rate 20 21 Blood Pressure 142/80 H 142/82 H Pulse Oximetry 94 92 92 Oxygen Delivery Method Room Air Oxygen Flow Rate 0 Narrative Exam Narrative: General:? Patient is well developed and well nourished, obese with BMI 56, no acute distress. HEENT:? Normocephalic, atraumatic, extraocular muscles intact, oral pharynx is clear and mucous membranes are moist. Neck: supple and symmetric, trachea is midline, no cervical adenopathy. Negative for JVD Chest:? Normal AP diameter and contour without kyphoscoliosis, no tachypnea, equal chest rise bilaterally. Lungs:? CTA b/l no wheezing rhonchi or rales. poor effort and decreased air movement at the lung bases. Cardio:?RRR, no m/r/g. Abdomen: S NT ND. groin as noted below in skin. : scrotal tenderness. no penile lesions noted. tender lymphadenopathy in the groin bilaterally. Musculoskeletal:? Muscle strength and tone are equal within normal limits, no deformity. Extremities: No edema or joint effusions. No cyanosis or clubbing. Skin:?entire groin and lower abdomen with probable fungal rash, scrotum is tender but much improved. No necrosis is evident, erythema and warmth on the inner R thigh with possible streaking. worse since yesterday. Neuro:? Alert and orientated x3,? sensation to touch intact in all extremities, no gross deficits noted of cranial nerves. Psych:? Patient has a well-kept appearance, appropriate affect, mental status attitude thought context and judgment are appropriate for age. Objective Labs Result Diagrams: 06/05/21 04:30 06/05/21 04:30 Labs: Laboratory Results - last 24 hr 06/05/21 06/05/21 04:30 04:30 WBC 16.1 H RBC 4.53 Hgb 12.0 L Hct 37.2 L MCV 82.1 MCH 26.5 MCHC 32.2 RDW 15.0 H Plt Count 243 Neut % (Auto) Not Reportable Lymph % (Auto) Not Reportable [place] % (Auto) Not Reportable Eos % (Auto) Not Reportable Baso % (Auto) Not Reportable Lymph # (Auto) Not Reportable [place] # (Auto) Not Reportable Baso # (Auto) Not Reportable Total Counted 100 Seg Neutrophils % 63.0 Band Neutrophils % 14.0 H Lymphocytes % (Manual) 16.0 L Monocytes % (Manual) 5.0 Eosinophils % (Manual) 1.0 L Basophils % (Manual) 1.0 Neutrophils # (Manual) 94771 H RBC Morphology See below Anisocytosis 1+ H Sodium 136 L Potassium 4.0 Chloride 101 Carbon Dioxide 34 H BUN 8 L Creatinine 0.86 Estimated GFR > 60.0 BUN/Creatinine Ratio 9.3 Glucose 129 H Calcium 8.2 L Total Bilirubin 0.4 AST 43 ALT 47 Alkaline Phosphatase 76 Total Protein 7.1 Albumin 3.5 Globulin 3.6 Albumin/Globulin Ratio 1.0 [facility] Medical History Chronic low back pain Morbid obesity Family History Father Diabetes mellitus Cancer Mother Healthy adult Social History household members: none Smoking Status: Former smoker alcohol intake: current Assessment & Plan Assessment & Plan narrative: Kenan Dougherty is a 51-year-old male with only noted history of morbid obesity who presented to the ED with scrotal cellulitis, inguinal lymphadenopathy, and high fevers. Admitted with sepsis secondary to inguinal / genital infection of uncertain etiology. 1. scrotal cellulitis with inguinal lymphadenopathy and epididymitis, acute, present on admission. Sepsis ruled out. -SIRS evidence by temp of 103.2?, HR 120 RR 30, WBC 16.4, lactic acid 2.3. SOFA score 1 currently with renal function. Some concern for skin and soft tissue necrotizing infection but no gas on imaging, two surgeons consulted in ER. Continue to monitor. LRINIC score indicates low risk currently. No progression and improvement making it much less likely. -WBC peaked at 27, improving today. -HIV negative, urine G/C negative. Denies intercourse for >1 year, no prior STIs known. -DVT study (? infected thrombosis) was negative. -continued broad spectrium antibiotics initially, pip/tazo and vanco initially but will narrow to cefdinir and doxycycline for cellulitis and epididymitis seen on ultrasound. Repeat CT pending today to possibly see if any abscess given persistent fever and leukocytosis and pain with increased cellulitis today. -blood and urine cultures obtained, currently negative. -Marcano placed monitors strict I&O, can discontinue today. -consider ID consultation depending on improvement. 2. Morbidly obese as evidence by BMI 56.3, acute on chronic, present on admission -Dietary consult ordered -patient's morbid obesity will greatly impact his ability to heal and impair his medical management 3. Pre-diabetes ?A1c 6.0%, recommend dietary interventions. Patient is interested in bariatric surgery possibly, which was discussed and encouraged. 4. DAVON ?- intermittent hypoxia with rest. Had outpatient sleep study. CPAP at night. Code status:? Full Surrogate decision maker:? Sister Dina WILLIAMSON PCR:? Negative DVT/VTE prophylaxis:? Lovenox and SCDs Disposition:? Admitted inpatient. If improving and WBC improving tomorrow with negative repeat CT could possibly discharge home tomorrow. Time Spent With Patient Critical Care time: I spent a total of [] minutes of critical care time on this patient's care today; this time is exclusive of procedural time. Quality VTE Deep Vein Thrombosis/Pulmonary Embolism Present on Admission: No
[2021-06-05] MEDS: HYDROMORPHONE 2 MG TABLET PO (13:37)
--- NOTE | 2021-06-05 15:36 | DIET.CONS ---
Dietary Consultation Note Admission Date: 06/01/2021 21:31 Assessment: 51 y/o M PMH obesity admitted with sepsis secondary to inguinal/genital infection. Daughter is present, pt in a chair. RD consulted for BMI of 53.7. Pt verbalized he is not ready for weight mgmgnt or PDM education at this time. Recent HgA1c of 6% newly diagnosing him with prediabetes. States he has FH of DM with his father. States he quit smoking just 5 months ago, which was very difficult. States one thing at a time. CHO intake seems excessive with frequent eating out and 8-12 sweetened creamers per day in coffee. Has quit drinking coffee in the past before. Has tried keto last year but was unsustainable. Interested in bariatric surgery in the future. No questions at this time. Diet recall: B: bowl cereal or eggs with spam or pancakes or sandwich or burrito L: burger and fries or fish and chips with chowder or tacos D: ribs and veggies with stuffing or rice or tuna casserole Beverages: coffee cup x 4-6 with 2 creamers ea, water, ICE water, coke zero, coors light on occasion Ht: 180.34 cm Wt: 185.8 kg BMI: 53.6 Last BM: 06/04/21 (06/04/21 06:16) MNA: 10 Oli Score: 19 Diet: 06/01/21 Breakfast General (Regular) Diet Diet Modifications: Nutrition Percent Meal Consumed 0% 06/05/21 13:32 Percent Meal Consumed 50% 06/04/21 18:47 Percent Meal Consumed 100% 06/04/21 14:00 Percent Meal Consumed 25% 06/04/21 08:55 Percent Meal Consumed 0% 06/03/21 18:11 Labs: RBC 4.53 X10^6/uL (4.5-5.9) 06/05/21 04:30 Hgb 12.0 g/dL (13.5-17.5) L 06/05/21 04:30 Hct 37.2 % (41-53) L 06/05/21 04:30 Creatinine 0.86 mg/dL (0.66-1.25) 06/05/21 04:30 Hemoglobin A1c 6.0 % (4.0-6.0) 06/02/21 06:22 Lactate 1.5 mmol/L (0.7-2.1) 06/02/21 06:22 NT-Pro-B Natriuret Pep 23 pg/mL (<125) 06/01/21 16:42 Nutrition Diagnosis: Altered nutrition lab r/t family hx, predicted excessive CHO aeb pt report, diet recall, and hgA1c of 6% Interventions: Brief PDM education with handout. RD OP contact information. Monitoring/Evaluations: consult prn Electronically Signed by: Tana Unger 06/05/21 15:36 Clinical Dietitian [address] [address]
[2021-06-05] MEDS: VANCOMYCIN 2,000 MG/400 ML PIGGYBACK 200 MG IV (20:00)
[2021-06-05] MEDS: SODIUM CHLORIDE 0.9% FLUSH 10 ML IV (20:01)
[2021-06-05] MEDS: PIPERACILLIN/TAZO 3.375 GM in SODIUM CHLORIDE 0.9% 100 ML 25 ML IV (23:08)
[2021-06-06] VITALS (11 sets, daily range): BP systolic 139–172; BP diastolic 70–93; PULSE 80–102; RESP 18–25; TEMP 36.6–37.3; O2SAT 92–100
[2021-06-06] MEDS: HYDROMORPHONE 4 MG TABLET PO ×4 (04:54→23:28)
[2021-06-06 06:07] LABS: Alanine Aminotransferase 62 IU/L (<50); Albumin 3.7 g/dL (3.5-5.0); Albumin Globulin Ratio 0.9 (1.0-2.8); Alkaline Phosphatase 78 U/L (38-126); Aspartate Aminotransferase 42 IU/L (17-59); Bilirubin Total 0.5 mg/dL (0.2-1.3); Blood Urea Nitrogen 7 mg/dL (9-20); Calcium 8.6 mg/dL (8.4-10.2); Carbon Dioxide 38 mmol/L (22-32); Chloride 101 mmol/L (98-107); Estimated Glomerular Filt Rate > 60.0 mL/min (>60); Glucose 100 mg/dL (70-100); HEMOLYSIS < 15 (0-50); Potassium 4.2 mmol/L (3.4-5.1); Sodium 138 mmol/L (137-145); Total Protein 7.7 g/dL (6.3-8.2)
[2021-06-06 06:12] LABS: Hematocrit 37.7 % (41-53); Hemoglobin 12.2 g/dL (13.5-17.5); Mean Corpuscular HGB Conc 32.3 % (30-36); Mean Corpuscular Hemoglobin 26.3 PG (26-34); Mean Corpuscular Volume 81.4 fL (80-100); Platelet Count 287 X10^3/uL (150-400); Red Blood Cell Count 4.62 X10^6/uL (4.5-5.9); Red Cell Distribution Width 15.6 % (11.6-14.8); White Blood Cell Count 14.7 X10^3/uL (4.5-11.0)
[2021-06-06 06:13] LABS: Add Manual Diff / Slide Review YES
--- NOTE | 2021-06-06 06:38 | PC.NURSE ---
Shift Note-Patient independent in room, in chair part of the time, in the bed part of the time. IV Vancomycin and Zosyn restarted, has been afebrile, HR 90s, BP elevated 160s-170s/80s-90s when in pain, treated with PO Dilaudid-effective.
[2021-06-06 07:06] LABS: Anisocytosis 1+; Neutrophils Absolute Manual 7791 /uL (3000-5900); Total Cells Counted 100
[2021-06-06] MEDS: PIPERACILLIN/TAZO 3.375 GM in SODIUM CHLORIDE 0.9% 100 ML 25 ML IV (08:36)
[2021-06-06] MEDS: SODIUM CHLORIDE 0.9% FLUSH 10 ML IV ×3 (08:37→21:38)
[2021-06-06] MEDS: ENOXAPARIN 40 MG/0.4 ML SYRINGE SUBCUT ×2 (08:37→21:28)
[2021-06-06] MEDS: VANCOMYCIN 1,250 MG/250 ML PIGGYBACK 250 MG IV ×3 (08:37→23:04)
[2021-06-06] MEDS: NYSTATIN POWDER 15GM 1 APPLIC TOP ×2 (08:52→21:29)
[2021-06-06] MEDS: ACETAMINOPHEN 325 MG TABLET 650 MG PO ×2 (08:57→15:49)
--- NOTE | 2021-06-06 08:57 | PM.PN.1 ---
Subjective Subjective Date Patient Seen: 06/06/21 Interval history: He is seen in his room here today to follow-up the groin cellulitis and the newer progression to severe left leg cellulitis. This is certainly not the 1st time he has had these conditions. His ALT has risen from 47 up to 62. His AST is normal. The white blood count has dropped from 16.1 down to 14.7. The hemoglobin is 12.2. The blood pressure is 169/80. Exam Vital Signs (past 8 hours): - 06/06/21 04:00 Temperature 98.4 F Pulse Rate 96 H Respiratory Rate 23 Blood Pressure 169/80 H Pulse Oximetry 95 Oxygen Delivery Method Room Air Oxygen Flow Rate 0 Narrative Exam Narrative: He is alert and oriented x3. He is quite disabled by his obesity. No apparent distress Heart is regular rate and rhythm without murmur Lungs are clear to auscultation bilaterally He has some mild tenderness of the right scrotum which is mildly swollen without redness. He has significant swelling and redness along with warmth and tenderness of the entire left calf. Objective Labs Result Diagrams: 06/06/21 05:00 06/06/21 05:00 Labs: Laboratory Results - last 24 hr 06/06/21 06/06/21 05:00 05:00 WBC 14.7 H RBC 4.62 Hgb 12.2 L Hct 37.7 L MCV 81.4 MCH 26.3 MCHC 32.3 RDW 15.6 H Plt Count 287 Neut % (Auto) Not Reportable Lymph % (Auto) Not Reportable [place] % (Auto) Not Reportable Eos % (Auto) Not Reportable Baso % (Auto) Not Reportable Lymph # (Auto) Not Reportable [place] # (Auto) Not Reportable Baso # (Auto) Not Reportable Total Counted 100 Seg Neutrophils % 52.0 Band Neutrophils % 1.0 L Lymphocytes % (Manual) 27.0 Atypical Lymphs % 8.0 H Monocytes % (Manual) 11.0 Eosinophils % (Manual) 1.0 L Neutrophils # (Manual) 7791 H RBC Morphology Not Reportable Anisocytosis 1+ H Sodium 138 Potassium 4.2 Chloride 101 Carbon Dioxide 38 H BUN 7 L Creatinine 0.88 Estimated GFR > 60.0 BUN/Creatinine Ratio 8.0 Glucose 100 Calcium 8.6 Total Bilirubin 0.5 AST 42 ALT 62 H Alkaline Phosphatase 78 Total Protein 7.7 Albumin 3.7 Globulin 4.0 Albumin/Globulin Ratio 0.9 L [facility] Medical History Chronic low back pain Morbid obesity Family History Father Diabetes mellitus Cancer Mother Healthy adult Social History household members: none Smoking Status: Former smoker alcohol intake: current Assessment & Plan Assessment & Plan narrative: Kenan Dougherty is a 51-year-old male with only noted history of morbid obesity who presented to the ED with scrotal cellulitis, inguinal lymphadenopathy, and high fevers. He was admitted with sepsis secondary to inguinal / genital infection of uncertain etiology. 1. scrotal cellulitis with inguinal lymphadenopathy and epididymitis, acute, present on admission. Sepsis ruled out. -SIRS evidence by temp of 103.2?, HR 120 RR 30, WBC 16.4, lactic acid 2.3. SOFA score 1 currently with renal function. Some concern for skin and soft tissue necrotizing infection but no gas on imaging, two surgeons consulted in ER. Continue to monitor. -WBC peaked at 27, improving today. -HIV negative, urine G/C negative. Denies intercourse for >1 year, no prior STIs known. -DVT study (? infected thrombosis) was negative. -continued broad spectrium antibiotics with Zosyn(dose increased to max on 06/06) and vancomycin. -blood and urine cultures obtained, currently negative. -Marcano placed monitors strict I&O, can discontinue today. -worsening left calf swelling/redness/warmth prompting CT scan on 06/06 without signs of osteomyelitis, necrotizing fasciitis, abscess so far. -consider ID consultation depending on improvement. 2. Morbidly obese as evidence by BMI 56.3, acute on chronic, present on admission -Dietary consult ordered -patient's morbid obesity will greatly impact his ability to heal and impair his medical management 3. Pre-diabetes ?A1c 6.0%, recommend dietary interventions. Patient is interested in bariatric surgery possibly, which was discussed and encouraged. 4. DAVON ?- intermittent hypoxia with rest. Had outpatient sleep study. CPAP at night. Code status:? Full Surrogate decision maker:? Sister Dina WILLIAMSON PCR:? Negative DVT/VTE prophylaxis:? Lovenox and SCDs Disposition:? Consistent symptom improvement would be needed to transition to outpatient treatment and is not present currently. Time Spent With Patient Critical Care time: I spent a total of [] minutes of critical care time on this patient's care today; this time is exclusive of procedural time. Quality VTE Deep Vein Thrombosis/Pulmonary Embolism Present on Admission: No
[2021-06-06] MEDS: KETOROLAC 10 MG TABLET PO ×2 (09:01→15:49)
--- NOTE | 2021-06-06 09:08 | DI.CT.S_ITS ---
PROCEDURE: CT LE LT W CON INDICATIONS: Cellulitis TECHNIQUE: Noncontrast 3 mm axial sections acquired of the distal left leg, spanning from above the knee joint to the foot. with coronal and sagittal reformats. For radiation dose reduction, the following was used: Automated exposure control, adjustment of the mA and/or kV according to patient size. COMPARISON: [facility], US, US PERIPH VENOUS LOW EXTREM BI, 06/02/2021, 11:34. [facility], CT, CT ABDOMEN PELVIS W CON, 06/01/2021, 17:16. [facility], CT, CT PELVIS W CON, 06/05/2021, 9:58. [facility], CT, CT LE LT W CON, 06/05/2021, 9:57. FINDINGS: Image quality: Excellent. Bones: No fracture identified. No new periosteal reaction or focal sclerosis. No suspicious lesion. There is tricompartmental osteophytosis at the knee joint. This is most pronounced at the lateral compartment. There is irregularity at the posterior lateral femoral condyle. Soft tissues: There is diffuse edema and skin thickening. There is more focal soft tissue thickening anterior medially adjacent to the mid anterior tibia, (6/362). This measures approximately 45 Hounsfield units. No fluid density is appreciated. IMPRESSION: 1. Focal soft tissue thickening anterior medial to the mid left tibia. This is not significantly changed and could represent marked focal edema or developing phlegmon. No loculated fluid collection to suggest abscess. -Targeted ultrasound may be helpful for further evaluation. 2. There is diffuse subcutaneous edema. 3. No periosteal reaction or focal sclerosis. Moderate to severe left knee DJD. Dictated by: Edwin Mendoza M.D. on 06/06/2021 at 9:20 Approved by: Edwin Mendoza M.D. on 06/06/2021 at 9:31
[2021-06-06] MEDS: PIPERACILLIN/TAZO 4.5 GM in SODIUM CHLORIDE 0.9% 100 ML 25 ML IV ×2 (15:48→23:31)
[2021-06-07] VITALS (13 sets, daily range): BP systolic 141–175; BP diastolic 68–98; PULSE 78–99; RESP 17–22; TEMP 36.5–37; O2SAT 94–98
[2021-06-07 08:39] LABS: Alanine Aminotransferase 23 IU/L (<50); Albumin 3.2 g/dL (3.5-5.0); Albumin Globulin Ratio 0.8 (1.0-2.8); Alkaline Phosphatase 120 U/L (38-126); Aspartate Aminotransferase 37 IU/L (17-59); Bilirubin Total 1.6 mg/dL (0.2-1.3); Blood Urea Nitrogen 14 mg/dL (9-20); Calcium 8.3 mg/dL (8.4-10.2); Carbon Dioxide 27 mmol/L (22-32); Chloride 105 mmol/L (98-107); Estimated Glomerular Filt Rate > 60.0 mL/min (>60); Globulin 3.8 g/dL (1.7-4.1); Glucose 148 mg/dL (70-100); HEMOLYSIS < 15 (0-50); Potassium 4.1 mmol/L (3.4-5.1); Sodium 136 mmol/L (137-145)
[2021-06-07] MEDS: VANCOMYCIN TROUGH 1 REQUEST MISC (08:44)
[2021-06-07] MEDS: HYDROMORPHONE 4 MG TABLET PO ×3 (08:59→20:03)
[2021-06-07] MEDS: ENOXAPARIN 40 MG/0.4 ML SYRINGE SUBCUT ×2 (08:59→21:13)
[2021-06-07] MEDS: PIPERACILLIN/TAZO 4.5 GM in SODIUM CHLORIDE 0.9% 100 ML 25 ML IV ×3 (08:59→23:26)
[2021-06-07] MEDS: SODIUM CHLORIDE 0.9% FLUSH 10 ML IV ×2 (09:00→21:16)
[2021-06-07] MEDS: VANCOMYCIN 1,250 MG/250 ML PIGGYBACK 250 MG IV (09:00)
[2021-06-07] MEDS: NYSTATIN POWDER 15GM 1 APPLIC TOP ×2 (09:07→21:14)
[2021-06-07 09:15] LABS: Hematocrit 37.7 % (41-53); Hemoglobin 11.8 g/dL (13.5-17.5); Mean Corpuscular HGB Conc 31.4 % (30-36); Mean Corpuscular Hemoglobin 25.9 PG (26-34); Mean Corpuscular Volume 82.5 fL (80-100); Platelet Count 348 X10^3/uL (150-400); Red Blood Cell Count 4.56 X10^6/uL (4.5-5.9); Red Cell Distribution Width 15.2 % (11.6-14.8); White Blood Cell Count 13.8 X10^3/uL (4.5-11.0)
[2021-06-07 09:34] LABS: Vancomycin Trough 8.2 ug/mL (10-20)
[2021-06-07] MEDS: KETOROLAC 10 MG TABLET PO ×2 (11:10→16:55)
[2021-06-07] MEDS: HYDROMORPHONE 2 MG TABLET PO (11:11)
[2021-06-07] MEDS: ACETAMINOPHEN 325 MG TABLET 650 MG PO ×2 (11:11→16:54)
[2021-06-07] MEDS: VANCOMYCIN PEAK 1 REQUEST MISC (12:55)
--- NOTE | 2021-06-07 13:39 | PM.PN.1 ---
Subjective Subjective Date Patient Seen: 06/07/21 Time Patient Seen: 08:00 Interval history: Today he thinks the pain and swelling in his leg is starting to improve. He feels the discomfort in his groin has completely resolved. Exam Vital Signs (past 8 hours): - 06/07/21 09:00 06/07/21 09:47 06/07/21 10:00 Temperature 97.7 F Pulse Rate 90 Respiratory Rate 18 Blood Pressure 175/98 H Pulse Oximetry 97 94 97 06/07/21 12:25 Temperature Pulse Rate Respiratory Rate Blood Pressure Pulse Oximetry 95 Oxygen Delivery Method Room Air Oxygen Flow Rate 0 Narrative Exam Narrative: GEN: no acute distress CV: regular rate and rhythm, no murmurs PULM: clear bilaterally EXT: swollen legs bilaterally, brawny chronic skin changes on bilateral legs with left leg warmth, erythema, and tenderness Objective Labs Result Diagrams: 06/07/21 08:41 06/07/21 06:05 Labs: Laboratory Results - last 24 hr 06/07/21 06/07/21 06/07/21 06:05 08:41 08:41 WBC 13.8 H RBC 4.56 Hgb 11.8 L Hct 37.7 L MCV 82.5 MCH 25.9 L MCHC 31.4 RDW 15.2 H Plt Count 348 Sodium 136 L Potassium 4.1 Chloride 105 Carbon Dioxide 27 BUN 14 Creatinine 0.40 L Estimated GFR > 60.0 BUN/Creatinine Ratio 35.0 H Glucose 148 H Calcium 8.3 L Total Bilirubin 1.6 H AST 37 ALT 23 Alkaline Phosphatase 120 Total Protein 7.0 Albumin 3.2 L Globulin 3.8 Albumin/Globulin Ratio 0.8 L Vancomycin Trough 8.2 L PFSH Medical History Chronic low back pain Morbid obesity Family History Father Diabetes mellitus Cancer Mother Healthy adult Social History household members: none Smoking Status: Former smoker alcohol intake: current Assessment & Plan Assessment & Plan narrative: Kenan Dougherty is a 51-year-old male with only noted history of morbid obesity who presented to the ED with scrotal cellulitis, inguinal lymphadenopathy, and high fevers.? He was admitted with sepsis secondary to inguinal / genital infection of uncertain etiology. 1. Left leg cellulitis -worsening left calf swelling/redness/warmth prompting CT scan on 06/06 without signs of osteomyelitis, necrotizing fasciitis, abscess so far. -consider ID consultation depending on improvement. -wound culture pending -if continues to improve will switch to oral antibiotics 2. scrotal cellulitis with inguinal lymphadenopathy and epididymitis, acute, resolved -SIRS evidence by temp of 103.2?, HR 120 RR 30, WBC 16.4, lactic acid 2.3. SOFA score 1 currently with renal function. Some concern for skin and soft tissue necrotizing infection but no gas on imaging, two surgeons consulted in ER. Continue to monitor. -WBC peaked at 27, now much improved -HIV negative, urine G/C negative. Denies intercourse for >1 year, no prior STIs known. -DVT study (? infected thrombosis) was negative. -continued broad spectrium antibiotics with Zosyn(dose increased to max on 06/06) and vancomycin. -blood and urine cultures obtained, currently negative. -Marcano placed monitors strict I&O, can discontinue today. 3. Morbidly obese as evidence by BMI 56.3, acute on chronic, present on admission -Dietary consult ordered -patient's morbid obesity will greatly impact his ability to heal and impair his medical management 4. Pre-diabetes ?A1c 6.0%, recommend dietary interventions. Patient is interested in bariatric surgery possibly, which was discussed and encouraged. 5. DAVON ?- intermittent hypoxia with rest. Had outpatient sleep study. CPAP at night. Time Spent With Patient Critical Care time: I spent a total of [] minutes of critical care time on this patient's care today; this time is exclusive of procedural time. Quality VTE Deep Vein Thrombosis/Pulmonary Embolism Present on Admission: No
[2021-06-07 15:57] LABS: Vancomycin Peak 16.8 ug/mL (20-40)
[2021-06-07] MEDS: VANCOMYCIN 1,500 MG/300 ML PIGGYBACK 200 MG IV ×2 (16:53→21:13)
--- NOTE | 2021-06-07 21:44 | PC.NURSE ---
circumference of r lower leg 7 below knee + 25.5 + dopplered pedal and posterior tibial pulses.
--- NOTE | 2021-06-07 22:19 | PC.NURSE ---
Pt L leg circ. measured 7 below the knee. Measured 25.5 - + pedal and posterior tibial pulses dopplered. Pt states entire lower leg is painful to touch. Encouraged pt to keep the leg elevated as much as possible.
[2021-06-08] VITALS: BP 173/91; PULSE 93; RESP 22; TEMP 36.2; O2SAT 94; O2SAT 95
--- NOTE | 2021-06-08 01:53 | RT ---
spoke to patient about cpap , pt declines cpap and oxygen at this time .
[2021-06-08] MEDS: VANCOMYCIN 1,500 MG/300 ML PIGGYBACK 200 MG IV (03:42)
[2021-06-08 04:00] VITALS: BP 160/90; PULSE 95; RESP 21; TEMP 37.6; O2SAT 97
[2021-06-08] MEDS: HYDROMORPHONE 4 MG TABLET PO ×2 (05:35→11:58)
[2021-06-08 08:00] VITALS: BP 182/81; PULSE 99; RESP 20; TEMP 36.6; O2SAT 95
--- NOTE | 2021-06-08 08:03 | P.DS_ITS ---
History of Present Illness History of Present Illness Chief complaint: Sadnip, DAX Narrative: Per Jeanine Chin: Kenan Dougherty is a 51-year-old male who denies any prominent medical history though noted morbid obesity presented to the ED with a chief complaint of groin/genital pain.? Patient states that the pain and swelling of his groin area started developing today at approximately 10:00 a.m., denies any inciting trauma or injury.? Upon admit P patient denies chest pain, headache, cough, shortness of breath, upper respiratory symptoms, sore throat, urinary symptoms The patient complained of fever, body aches groin/genital pain, nausea without emesis, pain and swelling lower abdomen, genital region, back pain in ED.? He has chronic back pain.? Upon admit He deniess numbness or weakness in lower e xtremities.? He takes no medications.? Patient states that upon admit patient states that fever nausea and back pain have resolved. Patient's vitals upon admit patient is febrile, demonstrates hypotension, tachycardiatemp 103.2?, BP 120/53 (in ED 198/94, 161/89) HR 120, RR 30 O2 saturation 94% on 1 L nasal cannula.? Patient desatted while sleeping into the low 80s required 2 L nasal cannula for Patient has a white count of 16.4, neut# 14,800, Neut % 90.1%, glucose 124, lactate 2.3, total protein 9.1, procalcitonin WNL, UA is positive for few bacteria +1 mucus and a culture.? Patient's EKG dem onstrates sinus tachycardia with LAFB, inferior Q-wave, without ST or T-wave changes.? Tox screen was negative, UA was positive for few bacteria mucus and a culture was placed.? Chest x-ray demonstrated no acute cardiopulmonary processes, scrotal ultrasound demonstrated ill-defined and hyperemic bilateral epididymi, possible anterior bladder wall thickening.? Patient's abdominal pelvis CT demonstrated left inguinal, pelvic sidewall and retroperitoneal lymphadenopathy similar to findings on to 03/16.? Patient met SIRS criteria/sepsis, patient admitted for its scrotal cellulitis, sepsis.? Dr. Antione martínez urology was consulted in the ED, as well as from .? Who advised vision should be admitted for cellulitis no surgical consult required at this time. Discharge Providers Provider Date of admission: 06/01/21 21:31 Discharge Date: 06/08/21 Primary care physician: Silvina Cartwright MD Consults: 06/02/21 00:05 Consult to Dietitian, Adult Routine Comment: Reason For Exam: BMI 53.7 06/02/21 00:06 Consult to Tele-money laundering investigator Routine Comment: Consulting Provider: [employer] Reason for consultation: Director Of Communications services Has provider been notified: No Discharge provider: oRberto Vizcarra MD Summary Hospital Course Discharge Diagnosis: 1. Left leg cellulitis, acute 2. Scrotal cellulitis 3. Morbid obesity 4. DAVON Hospital Course: Kenan Dougherty is a 51-year-old male with only noted history of morbid obesity who presented to the ED with scrotal cellulitis, inguinal lymphadenopathy, and high fevers.? He was admitted with sepsis secondary to inguinal / genital infection of uncertain etiology. He was treated broadly and this improved and he was then switched to oral antibiotics. However, he then developed left leg c ellulitis and was placed on IV antibiotics and once again improved. At time of discharge his cultures were negative for growth, and his MRSA swab was negative. Given the severity of disease he was ordered for an additional week of antibiotics with broad spectrum with keflex and cipro and he should follow up with his PCP within one week. Discharge time 32 minutes Exam Vital Signs (past 8 hours): Oxygen Delivery Method Room Air Oxygen Flow Rate 0 Narrative Exam Narrative: GEN: no acute distress CV: regular rate and rhythm, no murmurs PULM: clear bilaterally EXT: swollen legs bilaterally, brawny chronic skin changes on bilateral legs with left leg warmth, erythema, and tenderness Objective Labs Result Diagrams: 06/08/21 08:10 06/07/21 06:05 Labs: Laboratory Results - last 24 hr 06/08/21 06/08/21 08:10 08:10 WBC 15.2 H RBC 4.50 Hgb 11.9 L Hct 36.8 L MCV 81.8 MCH 26.4 MCHC 32.3 RDW 15.2 H Plt Count 371 Total Bilirubin 0.4 Conjugated Bilirubin 0.0 Unconjugated Bilirubin 0.4 AST 34 ALT 49 Alkaline Phosphatase 78 Total Protein 7.9 Albumin 3.7 Globulin 4.2 H Albumin/Globulin Ratio 0.9 L [facility] Medical History Chronic low back pain Morbid obesity Family History Father Diabetes mellitus Cancer Mother Healthy adult Social History household members: none Smoking Status: Former smoker alcohol intake: current Discharge Plan Discharge Plan Patient Disposition: Home Provider Discharge Comment: Mr. Dougherty was admitted with a groin and leg infection. He improved with antibiotics. He should try to keep his legs wrapped to reduce the swelling. He should follow up with his PCP within one week. Discharge orders & Medications Prescriptions: New cephalexin 500 mg tablet 500 mg PO QID Qty: 28 0RF ciprofloxacin HCl 500 mg tablet 500 mg PO Q12H Qty: 14 0RF hydromorphone 2 mg Tablet 2 mg PO Q6HR PRN (Reason: pain) Qty: 20 0RF Follow up/Referrals: Silvina Cartwright MD [Primary Care Provider] - 1 Week Diet/Activity/Treatments Diet: Regular Visit Report/Discharge Packet Instructions: DI for Cellulitis -- Adult, Cephalexin, Ciprofloxacin Discharge Data Primary Care Provider: Silvina Cartwright Quality VTE Deep Vein Thrombosis/Pulmonary Embolism Present on Admission: No
[2021-06-08 08:40] VITALS: O2SAT 94
[2021-06-08 08:58] LABS: Alanine Aminotransferase 49 IU/L (<50); Albumin 3.7 g/dL (3.5-5.0); Albumin Globulin Ratio 0.9 (1.0-2.8); Alkaline Phosphatase 78 U/L (38-126); Aspartate Aminotransferase 34 IU/L (17-59); Bilirubin Total 0.4 mg/dL (0.2-1.3); Bilirubin Unconjugated 0.4 mg/dL (0.0-1.1); Globulin 4.2 g/dL (1.7-4.1); HEMOLYSIS < 15 (0-50); Total Protein 7.9 g/dL (6.3-8.2)
[2021-06-08 08:59] LABS: Hematocrit 36.8 % (41-53); Hemoglobin 11.9 g/dL (13.5-17.5); Mean Corpuscular HGB Conc 32.3 % (30-36); Mean Corpuscular Hemoglobin 26.4 PG (26-34); Mean Corpuscular Volume 81.8 fL (80-100); Platelet Count 371 X10^3/uL (150-400); Red Cell Distribution Width 15.2 % (11.6-14.8); White Blood Cell Count 15.2 X10^3/uL (4.5-11.0)
[2021-06-08] MEDS: PIPERACILLIN/TAZO 4.5 GM in SODIUM CHLORIDE 0.9% 100 ML 25 ML IV (09:21)
[2021-06-08 11:41] VITALS: BP 175/81; PULSE 94; RESP 20; TEMP 36.6; O2SAT 93
--- NOTE | 2021-06-08 12:09 | PC.NURSE ---
Pt reports readiness for dc today. Education provided for PO ABX and FU appt with PCP. Medicated for pain prior to leaving Hospital.
== END 2021-06-08 12:13 | disposition home or self-care (01) | DRG 728 ==
LOC: ED 15:54 → AC 21:54 → ICU 06-02 07:17 → AC 06-03 07:14
PROVIDERS: Family Medicine; Internal Medicine; Admitting Provider Nurse Practitioner Family; Emergency Provider Emergency Medicine; Family Provider Family Medicine; PCP Family Medicine; Visit Provider Nurse Practitioner Family
DX: N49.2 Inflammatory disorders of scrotum (principal); Z68.43 Body mass index [BMI] 50.0-59.9, adult; L03.116 Cellulitis of left lower limb; E66.01 Morbid (severe) obesity due to excess calories; I95.9 Hypotension, unspecified; G47.33 Obstructive sleep apnea (adult) (pediatric); R59.0 Localized enlarged lymph nodes; Z87.891 Personal history of nicotine dependence; Z20.822 Contact with and (suspected) exposure to COVID-19
CPT/HCPCS: 36415; 51701; 71045; 72193; 73700; 73701; 74177; 76870; 80053; 80076; 80202; 80305; 81003; 81015; 83036; 83605; 83615; 83690; 83735; 83880; 84145; 85007; 85025; 85027; 85610; 85651; 85730; 86140; 87040; 87070; 87077; 87086; 87147; 87186; 87205; 87389; 87491; 87591; 87635; 87797; 93005; 93010; 93970; 94760; 96361; 96365; 96367; 96375; 99285; 99291; C9803; J0696; J1170; J1650; J1885; J2405; J2543; Q9967

== ENCOUNTER 2021-06-13 16:38 | Inpatient (IN) | payer OTHER, SELFPAY ==
[2021-06-01 23:30] VITALS: BMI 53.6
[2021-06-13] VITALS (12 sets, daily range): BP systolic 120–166; BP diastolic 58–87; PULSE 85–99; RESP 11–22; TEMP 36.4–36.8; O2SAT 93–97; BMI 55.9; BMI 56.2
--- NOTE | 2021-06-13 17:38 | ED.EXTPRO ---
HPI - Extremity Problem General Chief complaint: Extremity Problem,Nontraumatic Stated complaint: Recurring Infection lower extremites Time Seen by Provider: 06/13/21 17:38 Source: patient Mode of arrival: Ambulatory Related Data Previous Rx's Medication Instructions Recorded cephalexin 500 mg tablet 500 mg PO QID #28 tab 06/08/21 ciprofloxacin HCl 500 mg tablet 500 mg PO Q12H #14 tab 06/08/21 hydromorphone 2 mg tablet 2 mg PO Q6HR PRN #20 tab 06/08/21 Allergies Allergy/AdvReac Type Severity Reaction Status Date / Time No Known Drug Allergies Allergy Verified 08/16/18 16:22 Patient History Medical History Chronic low back pain Morbid obesity Family History Father Diabetes mellitus Cancer Mother Healthy adult Social History household members: none Smoking Status: Former smoker alcohol intake: current Smoking Status: Former smoker alcohol intake frequency: holidays/special occasions only Substance Use Type: does not use Exam Initial Vital Signs Initial Vital Signs: Vital Signs Temperature 97.7 F 06/13/21 16:54 Pulse Rate 90 06/13/21 16:54 Respiratory Rate 18 06/13/21 16:54 Blood Pressure 142/77 H 06/13/21 16:54 Pulse Oximetry 97 06/13/21 16:54 Course Orders Ordered: ED Orders 06/13/21 17:39 Blood Culture Stat Complete Blood Count AUTO DIFF Stat Comprehensive Metabolic Panel Stat Lactate (Lactic Acid) Stat Procalcitonin Stat Troponin & CK Cardiac Panel Stat Urinalysis and Microscopic Stat Lactated Ringer's (Lactated Ringers) 2,259 mls @ 753 mls/hr 30 ml/kg infuse over 3 hr (2259 ml) IV NOW ONE Stop: 06/13/21 20:38 Levofloxacin (Levaquin) 500 mg in 100 mls @ 100 mls/hr IV NOW ONE Stop: 06/13/21 18:38 Vital Signs Vital signs: Vital Signs - 8 hr 06/13/21 16:54 Temperature 97.7 F Pulse Rate 90 Respiratory Rate 18 Blood Pressure 142/77 H Pulse Oximetry 97 Discharge Plan Departure Prescriptions: No Action cephalexin 500 mg tablet 500 mg PO QID Qty: 28 0RF ciprofloxacin HCl 500 mg tablet 500 mg PO Q12H Qty: 14 0RF hydromorphone 2 mg Tablet 2 mg PO Q6HR PRN (Reason: pain) Qty: 20 0RF Referrals: Silvina Cartwright MD [Primary Care Provider] -
[2021-06-13 18:15] LABS: Add Manual Diff / Slide Review NO; Basophils Absolute Auto 100 /uL (0-100); Basophils Percent Auto 1.2 % (0-2); Eosinophils Absolute Auto 100 /uL (0-450); Eosinophils Percent Auto 1.3 % (2-4); Hematocrit 40.5 % (41-53); Hemoglobin 13.6 g/dL (13.5-17.5); Lymphocytes Absolute Auto 3200 /uL (1100-4500); Lymphocytes Percent Auto 31.8 % (25-40); Mean Corpuscular HGB Conc 33.5 % (30-36); Mean Corpuscular Hemoglobin 27.1 PG (26-34); Monocytes Absolute Auto 1100 /uL (0-900); Monocytes Percent Auto 10.8 % (3-14); Neutrophils Absolute Auto 5600 /uL (1500-7000); Neutrophils Percent Auto 54.9 % (50-75); Platelet Count 440 X10^3/uL (150-400); Red Cell Distribution Width 15.4 % (11.6-14.8); White Blood Cell Count 10.1 X10^3/uL (4.5-11.0)
[2021-06-13] MEDS: LACTATED RINGERS 2,259 ML 753 ML IV (18:24)
--- NOTE | 2021-06-13 18:24 | ED_ITS ---
HPI - Extremity Problem General Chief complaint: Extremity Problem,Nontraumatic Stated complaint: Recurring Infection lower extremites Time Seen by Provider: 06/13/21 17:38 Source: patient Mode of arrival: Ambulatory History of Present Illness HPI Narrative: Patient is a 51-year-old male history of morbid obesity and recent sepsis infection from all groin infection he was admitted June 02 through June 08. He developed left leg cellulitis around June 06. He was discharged home on Cipro and Keflex. Since he has been home he says it has gone more painful. He denies any fever or chills. Yesterday he was able to walk but it hurt quite a lot. He denies any chest pain or palpitations. No shortness of breath. He previously has been septic, and his says it has happened very quickly so they are nervous. He states that his scrotal infection has completely resolved. Related Data Home Medications Medication Instructions Recorded Confirmed ibuprofen 200 mg tablet 400 mg PO Q6H 06/13/21 06/13/21 Previous Rx's Medication Instructions Recorded cephalexin 500 mg tablet 500 mg PO QID #28 tab 06/08/21 ciprofloxacin HCl 500 mg tablet 500 mg PO Q12H #14 tab 06/08/21 hydromorphone 2 mg tablet 2 mg PO Q6HR PRN #20 tab 06/08/21 Allergies Allergy/AdvReac Type Severity Reaction Status Date / Time No Known Drug Allergies Allergy Verified 08/16/18 16:22 Review of Systems Review of Systems Narrative: GENERAL: Denies chills, fatigue, malaise, fever, sweats, travel HEENT: Denies sinus pain, ear pain, sore throat, difficulty swallowing, neck pain RESPIRATORY: Denies dyspnea, cough, wheezing, hemoptysis, sputum. CARDIOVASCULAR: Denies chest pain, palpitations, orthopnea, edema GASTROINTESTINAL: Denies nausea, vomiting, abdominal pain, diarrhea, constipation, melena. : Denies dysuria, frequency, incontinence, hematuria, urinary retention, flank pain. MUSCULOSKELETAL: Denies weakness, joint pain, or bony pain SKIN: See HPI NEUROLOGIC: Denies weakness, dizziness, headache, numbness, change in speech, confusion PSYCHIATRIC: No concerning psychosocial issues. 12 point review of systems is negative except for those stated above and HPI Patient History Medical History Cellulitis of left leg Chronic low back pain History of recent hospitalization Morbid obesity Morbid obesity DAVON (obstructive sleep apnea) Surgical History H/O laceration repair Family History Father Diabetes mellitus Cancer Mother Healthy adult Asthma Social History household members: children and none Smoking Status: Former smoker alcohol intake: current Smoking Status: Former smoker alcohol intake frequency: holidays/special occasions only Substance Use Type: does not use Exam Initial Vital Signs Initial Vital Signs: Vital Signs Temperature 97.7 F 06/13/21 16:54 Pulse Rate 90 06/13/21 16:54 Respiratory Rate 18 06/13/21 16:54 Blood Pressure 142/77 H 06/13/21 16:54 Pulse Oximetry 97 06/13/21 16:54 GENERAL: Alert 51-year-old male BMI 55 and in no acute distress. HEENT: Head atraumatic,EOMI, pupils reactive, face symmetric, moist mucous membranes CARDIOVASCULAR: Regular rate and rhythm without murmurs, rubs or gallops. RESPIRATORY: Breath sounds equal bilaterally, no wheezes rales or rhonchi. ABDOMEN: Soft, nontender. Normoactive bowel sounds all 4 quadrants. No guarding or rebound. : No CVA tenderness, no testicle tenderness no erythema no swelling EXTREMITIES: Normal range of motion, no clubbing or edema. Neurovascularly intact Tender posterior calf. Distal pedal pulse intact NEUROLOGICAL: Alert and oriented x4.Normal gait and speech SKIN: Mild erythema of left leg. Left leg swelling significantly more than right leg. Course Orders Ordered: ED Orders 06/13/21 19:30 Urinalysis and Microscopic Stat 06/13/21 20:20 COVID19 -Nasal swab/Pre-Proc Stat Acetaminophen (Acetaminophen 325 Mg Tablet) 975 mg PO Q8H NAMITA Last Admin: 06/13/21 22:16 Dose: 975 mg Documented by: ARIN Hydrocodone Bitart/Acetaminophen (Hydrocodone/Acet 5/325 Tablet) 1 tab PO Q3H PRN PRN Reason: Pain, Moderate (4-6) Last Admin: 06/13/21 22:17 Dose: 1 tab Documented by: ARIN Enoxaparin Sodium (Enoxaparin 40 Mg/0.4 Ml Syringe) 40 mg SUBCUT DAILY NAMITA Hydromorphone HCl (Hydromorphone 2 Mg Tablet) 2 mg PO Q4HR PRN PRN Reason: Breakthrough Pain, 10+ Ceftriaxone Sodium 1,000 mg/ (Sodium Chloride) 100 mls @ 200 mls/hr IV Q24H NAMITA Vancomycin HCl/Dextrose (Vancomycin) 2,000 mg in 400 mls @ 200 mls/hr IV Q8H NAMITA Naloxone HCl (Naloxone 0.4 Mg/Ml Vial) 0.2 mg IV Q2MIN PRN PRN Reason: Opiate Reversal Vancomycin HCl (Vancomycin Per Pharmacy) 1 request MISC NOW ONE Stop: 06/13/21 20:32 Discontinued Medications Hydromorphone HCl (Hydromorphone 1 Mg Inj) 1 mg IV NOW ONE Stop: 06/13/21 18:27 Last Admin: 06/13/21 18:48 Dose: 1 mg Documented by: TIFFANY Lactated Ringer's (Lactated Ringers) 2,259 mls @ 753 mls/hr 30 ml/kg infuse ove r 3 hr (2259 ml) IV NOW ONE Stop: 06/13/21 20:38 Last Admin: 06/13/21 18:24 Dose: 753 mls/hr Documented by: DIEGO Levofloxacin (Levaquin) 500 mg in 100 mls @ 100 mls/hr IV NOW ONE Stop: 06/13/21 18:38 Last Infusion: 06/13/21 19:43 Dose: 0 mls/hr Documented by: Admin: 06/13/21 18:25 Dose: 100 mls/hr Documented by: DIEGO Vancomycin HCl/Dextrose (Vancomycin) 2,000 mg in 400 mls @ 200 mls/hr IV NOW ONE Stop: 06/13/21 21:05 Last Admin: 06/13/21 21:30 Dose: 200 mls/hr Documented by: GUILLERMO Vital Signs Vital signs: Vital Signs - 8 hr 06/13/21 20:00 06/13/21 20:01 06/13/21 20:21 Pulse Rate 91 H 91 H 85 Respiratory Rate 16 Blood Pressure 159/72 H 144/82 H Pulse Oximetry 97 96 97 MDM - Extremity (Nontraumatic) Lab Data Result diagrams: 06/13/21 18:01 06/13/21 18:01 Labs: Lab Results 06/13/21 06/13/21 06/13/21 Range/Units 18:01 18:01 18:01 WBC 10.1 (4.5-11.0) X10^3/uL RBC 5.00 (4.5-5.9) X10^6/uL Hgb 13.6 (13.5-17.5) g/dL Hct 40.5 L (41-53) % MCV 81.0 (80-100) fL MCH 27.1 (26-34) PG MCHC 33.5 (30-36) % RDW 15.4 H (11.6-14.8) % Plt Count 440 H (150-400) X10^3/uL Neut % (Auto) 54.9 (50-75) % Lymph % (Auto) 31.8 (25-40) % [place] % (Auto) 10.8 (3-14) % Eos % (Auto) 1.3 L (2-4) % Baso % (Auto) 1.2 (0-2) % Neut # (Auto) 5600 (3357-7182) /uL Lymph # (Auto) 3200 (4852-3694) /uL [place] # (Auto) 1100 H (0-900) /uL Eos # (Auto) 100 (0-450) /uL Baso # (Auto) 100 (0-100) /uL Sodium 138 (137-145) mmol/L Potassium 4.4 (3.4-5.1) mmol/L Chloride 102 (98-107) mmol/L Carbon Dioxide 30 (22-32) mmol/L BUN 15 (9-20) mg/dL Creatinine 1.04 (0.66-1.25) mg/dL Estimated GFR > 60.0 (>60) mL/min BUN/Creatinine Ratio 14.4 (6-22) Glucose 102 H (70-100) mg/dL Lactate 1.4 (0.7-2.1) mmol/L Calcium 9.5 (8.4-10.2) mg/dL Total Bilirubin 0.4 (0.2-1.3) mg/dL AST 36 (17-59) IU/L ALT 48 (<50) IU/L Alkaline Phosphatase 85 (38-126) U/L Total Creatine Kinase 44 L (55-170) U/L CK-MB (CK-2) TNP CK-MB (CK-2) Rel Index TNP Troponin I < 0.012 (0.01-0.034) ng/mL Total Protein 9.6 H (6.3-8.2) g/dL Albumin 4.4 (3.5-5.0) g/dL Globulin 5.2 H (1.7-4.1) g/dL Albumin/Globulin Ratio 0.8 L (1.0-2.8) Procalcitonin 0.08 (<0.5) ng/mL Urine Color Urine Appearance Urine pH (4.5-8.0) Ur Specific [place] (1.000-1.035) Urine Protein (Negative) Urine Glucose (UA) (Negative) g/dL Urine Ketones (NEGATIVE) Urine Occult Blood (Negative) Urine Nitrate (Negative) Urine Bilirubin (NEGATIVE) Urine Urobilinogen (0.2) E.U./dL Ur Leukocyte Esterase (NEGATIVE) Urine RBC (0-5/HPF) Urine WBC (0-5/HPF) Ur Squamous Epith Cells (0-5/HPF) Urine Bacteria (None) Ur Culture Indicated? SARS-CoV-2 (PCR) (Negative) 06/13/21 06/13/21 Range/Units 19:30 20:20 WBC (4.5-11.0) X10^3/uL RBC (4.5-5.9) X10^6/uL Hgb (13.5-17.5) g/dL Hct (41-53) % MCV (80-100) fL MCH (26-34) PG MCHC (30-36) % RDW (11.6-14.8) % Plt Count (150-400) X10^3/uL Neut % (Auto) (50-75) % Lymph % (Auto) (25-40) % [place] % (Auto) (3-14) % Eos % (Auto) (2-4) % Baso % (Auto) (0-2) % Neut # (Auto) (1225-6095) /uL Lymph # (Auto) (5303-9944) /uL [place] # (Auto) (0-900) /uL Eos # (Auto) (0-450) /uL Baso # (Auto) (0-100) /uL Sodium (137-145) mmol/L Potassium (3.4-5.1) mmol/L Chloride (98-107) mmol/L Carbon Dioxide (22-32) mmol/L BUN (9-20) mg/dL Creatinine (0.66-1.25) mg/dL Estimated GFR (>60) mL/min BUN/Creatinine Ratio (6-22) Glucose (70-100) mg/dL Lactate (0.7-2.1) mmol/L Calcium (8.4-10.2) mg/dL Total Bilirubin (0.2-1.3) mg/dL AST (17-59) IU/L ALT (<50) IU/L Alkaline Phosphatase (38-126) U/L Total Creatine Kinase (55-170) U/L CK-MB (CK-2) CK-MB (CK-2) Rel Index Troponin I (0.01-0.034) ng/mL Total Protein (6.3-8.2) g/dL Albumin (3.5-5.0) g/dL Globulin (1.7-4.1) g/dL Albumin/Globulin Ratio (1.0-2.8) Procalcitonin (<0.5) ng/mL Urine Color Yellow Urine Appearance Clear Urine pH 6.0 (4.5-8.0) Ur Specific [place] 1.010 (1.000-1.035) Urine Protein Negative (Negative) Urine Glucose (UA) Negative (Negative) g/dL Urine Ketones Negative (NEGATIVE) Urine Occult Blood Negative (Negative) Urine Nitrate Negative (Negative) Urine Bilirubin Negative (NEGATIVE) Urine Urobilinogen 0.2 (0.2) E.U./dL Ur Leukocyte Esterase Negative (NEGATIVE) Urine RBC 1-5/hpf (0-5/HPF) Urine WBC 1-5/hpf (0-5/HPF) Ur Squamous Epith Cells 1-5 /hpf (0-5/HPF) Urine Bacteria None seen (None) Ur Culture Indicated? Cult not indicated SARS-CoV-2 (PCR) Negative (Negative) Imaging Data US - DVT: Radiologist's Impression: PROCEDURE:? US PERIPH VENOUS LOW EXTREM LT ? INDICATIONS:? pain swelling ? TECHNIQUE:? Real-time imaging, as well as color and pulse Doppler interrogation, were performed of the lower extremity deep veins from the inguinal ligament to the popliteal fossa.? ? COMPARISON:? None. ? FINDINGS:? The common femoral, femoral and popliteal veins are normally compressible, and free of intraluminal thrombus.? Color and pulse Doppler demonstrate normal phasic intraluminal flow.? There is normal augmentation response to distal compression maneuver. ? ? IMPRESSION:? No sonographic evidence of DVT. ? ? Dictated by: Jeevan Hutchison M.D. on 06/13/2021 at 19:41 ? ? Approved by: Jeevan Hutchison M.D. on 06/13/2021 at 19:41 ? MDM Narrative Medical decision making narrative: Patient was recently admitted with infection he was discharged home with antibiotics and now is failing outpatient antibiotics with his left leg. He is given vancomycin and Levaquin. A DVT study is negative. Patient does not appear septic at this time. He does not have leukocytosis or fever. However he does have some worsening erythema of left leg with increased pain. Tonya jeff [facility] accepts patient for admission Discharge Plan Departure Patient Disposition: Admitted As Inpatient Clinical Impression: Cellulitis of left leg Admit Date/Time: 06/13/21 20:23 Admit Provider: Teresa Jeff
[2021-06-13] MEDS: levoFLOXacin 500 MG/100 ML PIGGYBACK 100 MG IV (18:25)
--- NOTE | 2021-06-13 18:25 | DI.US.S_ITS ---
PROCEDURE: US PERIPH VENOUS LOW EXTREM LT INDICATIONS: pain swelling TECHNIQUE: Real-time imaging, as well as color and pulse Doppler interrogation, were performed of the lower extremity deep veins from the inguinal ligament to the popliteal fossa. COMPARISON: None. FINDINGS: The common femoral, femoral and popliteal veins are normally compressible, and free of intraluminal thrombus. Color and pulse Doppler demonstrate normal phasic intraluminal flow. There is normal augmentation response to distal compression maneuver. IMPRESSION: No sonographic evidence of DVT. Dictated by: Jeevan Hutchison M.D. on 06/13/2021 at 19:41 Approved by: Jeevan Hutchison M.D. on 06/13/2021 at 19:41
[2021-06-13 18:32] LABS: Lactate (Lactic Acid) 1.4 mmol/L (0.7-2.1)
[2021-06-13 18:33] LABS: Alanine Aminotransferase 48 IU/L (<50); Albumin 4.4 g/dL (3.5-5.0); Alkaline Phosphatase 85 U/L (38-126); Aspartate Aminotransferase 36 IU/L (17-59); BUN Creatinine Ratio 14.4 (6-22); Bilirubin Total 0.4 mg/dL (0.2-1.3); Blood Urea Nitrogen 15 mg/dL (9-20); Calcium 9.5 mg/dL (8.4-10.2); Carbon Dioxide 30 mmol/L (22-32); Chloride 102 mmol/L (98-107); Creatine Kinase 44 U/L (55-170); Estimated Glomerular Filt Rate > 60.0 mL/min (>60); Glucose 102 mg/dL (70-100); HEMOLYSIS < 15 (0-50); Potassium 4.4 mmol/L (3.4-5.1); Sodium 138 mmol/L (137-145)
[2021-06-13 18:34] LABS: Albumin Globulin Ratio 0.8 (1.0-2.8); Globulin 5.2 g/dL (1.7-4.1); Total Protein 9.6 g/dL (6.3-8.2)
[2021-06-13 18:44] LABS: Troponin I < 0.012 ng/mL (0.01-0.034)
[2021-06-13] MEDS: HYDROMORPHONE 1 MG INJ IV (18:48)
[2021-06-13 18:49] LABS: Procalcitonin 0.08 ng/mL (<0.5)
[2021-06-13 19:50] LABS: Appearance Urine UA CLEAR; Bilirubin Urine UA NEGATIVE (NEGATIVE); Color Urine UA YELLOW; Glucose Urine UA NEGATIVE (Negative); Ketones Urine UA NEGATIVE (NEGATIVE); Leukocyte Esterase Urine UA NEGATIVE (NEGATIVE); Nitrite Urine UA NEGATIVE (Negative); Occult Blood Urine UA NEGATIVE (Negative); Protein Urine UA NEGATIVE (Negative); Urobilinogen Urine UA 0.2 E.U./dL (0.2)
--- NOTE | 2021-06-13 20:05 | PC.NURSE ---
IVF and antibiotics infusing pt without c/o at this time
[2021-06-13 20:06] LABS: Bacteria Urine None Seen; Culture Indicated Urine Cult Not Indicated; RBC Urine 1-5/HPF (0-5/HPF); Squamous Epithelial Cell Urine 1-5 /HPF (0-5/HPF); WBC Urine 1-5/HPF (0-5/HPF)
--- NOTE | 2021-06-13 20:35 | PC.NURSE ---
pt updated on plan of care
[2021-06-13 20:55] LABS: COVID19 -Nasal RAPID Negative (Negative)
[2021-06-13] MEDS: VANCOMYCIN 2,000 MG/400 ML PIGGYBACK 200 MG IV (21:30)
--- NOTE | 2021-06-13 22:06 | PM.HP.1 ---
History of Present Illness History of Present Illness Date Patient Seen: 06/13/21 Time Patient Seen: 22:06 Chief complaint: Recurring Infection lower extremites Narrative: Kenan Dougherty is a 51 male with a history of recurrent infections of his left leg he attributes to a series injury he sustained to it and 1996 and was just discharged this past Tuesday the with a scrotal cellulitis that resolved but then started to develop early cellulitis of the left leg and was discharged on oral antibiotics. He developed left leg cellulitis around June 06, was treated with IV antibiotics and discharged home on Cipro and Keflex.? Since he has been home he reports it has gone more painful but is still able to ambulate.? Stated his last oral antibiotic dose was to be for tomorrow and that he was unable to get into his PCP for follow-up until Tuesday of next week. Denies any fever or chills, nausea or vomiting, abdominal pain, scrotal pain or dysurea, diarrhea or constipation.? His older sister in the room states his infections come on very quickly and that they recently lost a younger brother at 32 to sepsis that affected his aorta. 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 Patient underwent vascular ultrasonography and was not found to have a DVT. He is afebrile, blood pressure 166/84, heart rate 99, respiratory rate 22, oxygen saturation of 95% on room air, he weighs 183 kg with a BMI of 56.2. Is unremarkable, chemistries are unremarkable he has a mildly elevated glucose of 102, procalcitonin is within normal limits UA is negative for UTI and COVID-19 PCR is negative. Patient History Medical History (Updated 06/13/21 @ 22:42 by QUINTON Helm) Cellulitis of left leg Chronic low back pain History of recent hospitalization Morbid obesity Morbid obesity DAVON (obstructive sleep apnea) Surgical History (Updated 06/13/21 @ 22:41 by QUINTON Helm) H/O laceration repair Family & Social History Family History (Updated 06/13/21 @ 22:43 by QUINTON Helm) Father Diabetes mellitus Cancer Mother Healthy adult Asthma Social History: household members children,none Prior Living Arrangements Apartment/Condo Safety & Behavioral: Feels Safe in Current Yes Environment Been Physically Hurt or No Threatened By a Person Suicidal Ideation Description None Suicide Plan Description No Plan Tobacco & Substance use: Smoking Status Former smoker alcohol intake current alcohol intake frequency holiday/special occasion Substance Use Type does not use Meds Home Medications and Allergies Home Medications Medication Instructions Recorded Confirmed Type cephalexin 500 mg tablet 500 mg PO QID #28 tab 06/08/21 06/13/21 Rx ciprofloxacin HCl 500 mg tablet 500 mg PO Q12H #14 tab 06/08/21 06/13/21 Rx hydromorphone 2 mg tablet 2 mg PO Q6HR PRN #20 tab 06/08/21 06/13/21 Rx ibuprofen 200 mg tablet 400 mg PO Q6H 06/13/21 06/13/21 History Allergies Allergy/AdvReac Type Severity Reaction Status Date / Time No Known Drug Allergies Allergy Verified 08/16/18 16:22 Review of Systems Review of Systems ROS: Yes All systems reviewed with the patient and are negative except as otherwise documented Exam Vital Signs (past 8 hours): - 06/13/21 16:54 06/13/21 18:07 06/13/21 18:49 Temperature 97.7 F 98.2 F Pulse Rate 90 91 H 90 Respiratory Rate 18 18 11 L Blood Pressure 142/77 H 136/72 Pulse Oximetry 97 96 97 06/13/21 18:50 06/13/21 19:00 06/13/21 19:24 Temperature Pulse Rate 90 90 90 Respiratory Rate 18 19 20 Blood Pressure 120/58 L 127/77 154/87 H Pulse Oximetry 96 94 96 06/13/21 19:30 06/13/21 20:00 06/13/21 20:01 Temperature Pulse Rate 92 H 91 H 91 H Respiratory Rate 17 Blood Pressure 159/72 H Pulse Oximetry 93 97 96 06/13/21 20:21 06/13/21 20:30 06/13/21 21:30 Temperature 97.6 F Pulse Rate 85 87 99 H Respiratory Rate 16 22 22 Blood Pressure 144/82 H 166/84 H Pulse Oximetry 97 97 95 Oxygen Delivery Method Room Air Oxygen Flow Rate 0 Narrative Exam Narrative: Gen: Alert, oriented, morbidly obese 51 y.o. male, NAD HEENT: normocephalic, atraumatic, conjunctiva clear, sclera non-icteric, oral mucosa pink and moist Neck: supple, full ROM, no JVD, trachea is midline Resp: Lungs CTA, non-labored breathing CV: RRR, no murmur or rubs Abd: soft, non-tender, normoactive BTs Skin: left medial lower extremity with erythema, warm to touch, dry with bluish coloration anteriorly. Border to be marked. Neuro: Alert and oriented X 4 w/no focal deficits. Speech clear and coherent. Extremities: moves all 4 extremities, is ambulatory, negative Abida?s sign Psyche: normal mood and affect. Objective Labs Result Diagrams: 06/13/21 18:01 06/13/21 18:01 Labs: Laboratory Results - last 24 hr 06/13/21 06/13/21 06/13/21 18:01 18:01 18:01 WBC 10.1 RBC 5.00 Hgb 13.6 Hct 40.5 L MCV 81.0 MCH 27.1 MCHC 33.5 RDW 15.4 H Plt Count 440 H Neut % (Auto) 54.9 Lymph % (Auto) 31.8 [place] % (Auto) 10.8 Eos % (Auto) 1.3 L Baso % (Auto) 1.2 Neut # (Auto) 5600 Lymph # (Auto) 3200 [place] # (Auto) 1100 H Eos # (Auto) 100 Baso # (Auto) 100 Sodium 138 Potassium 4.4 Chloride 102 Carbon Dioxide 30 BUN 15 Creatinine 1.04 Estimated GFR > 60.0 BUN/Creatinine Ratio 14.4 Glucose 102 H Lactate 1.4 Calcium 9.5 Total Bilirubin 0.4 AST 36 ALT 48 Alkaline Phosphatase 85 Total Creatine Kinase 44 L CK-MB (CK-2) TNP CK-MB (CK-2) Rel Index TNP Troponin I < 0.012 Total Protein 9.6 H Albumin 4.4 Globulin 5.2 H Albumin/Globulin Ratio 0.8 L Procalcitonin 0.08 Urine Color Urine Appearance Urine pH Ur Specific [place] Urine Protein Urine Glucose (UA) Urine Ketones Urine Occult Blood Urine Nitrate Urine Bilirubin Urine Urobilinogen Ur Leukocyte Esterase Urine RBC Urine WBC Ur Squamous Epith Cells Urine Bacteria Ur Culture Indicated? SARS-CoV-2 (PCR) 06/13/21 06/13/21 19:30 20:20 WBC RBC Hgb Hct MCV MCH MCHC RDW Plt Count Neut % (Auto) Lymph % (Auto) [place] % (Auto) Eos % (Auto) Baso % (Auto) Neut # (Auto) Lymph # (Auto) [place] # (Auto) Eos # (Auto) Baso # (Auto) Sodium Potassium Chloride Carbon Dioxide BUN Creatinine Estimated GFR BUN/Creatinine Ratio Glucose Lactate Calcium Total Bilirubin AST ALT Alkaline Phosphatase Total Creatine Kinase CK-MB (CK-2) CK-MB (CK-2) Rel Index Troponin I Total Protein Albumin Globulin Albumin/Globulin Ratio Procalcitonin Urine Color Yellow Urine Appearance Clear Urine pH 6.0 Ur Specific [place] 1.010 Urine Protein Negative Urine Glucose (UA) Negative Urine Ketones Negative Urine Occult Blood Negative Urine Nitrate Negative Urine Bilirubin Negative Urine Urobilinogen 0.2 Ur Leukocyte Esterase Negative Urine RBC 1-5/hpf Urine WBC 1-5/hpf Ur Squamous Epith Cells 1-5 /hpf Urine Bacteria None seen Ur Culture Indicated? Cult not indicated SARS-CoV-2 (PCR) Negative Assessment & Plan Assessment & Plan narrative: Kenan Dougherty, recently discharged for scrotal cellulitis will be admitted for cellulitis of the left leg which is apparently not been improving since discharge on Tuesday the . 1. Cellulitis of the left lower leg, acute, present on admission He is started on IV ceftriaxone and Levaquin He will be continued on IV ceftriaxone and vancomycin Blood cultures are pending Pain control with scheduled Tylenol, hydrocodone and oral hydromorphone for now 2. Obstructive sleep apnea on CPAP RT consult to set up CPAP for him 3. History of scrotal infection and recent admission for such This is resolved 4. Morbid obesity, chronic and present on admission He has a BMI of 56.3 which puts him at greater risk for medical and surgical complications. VTE Prophylaxis: Wells risk score 1.5 Enoxaparin 40 mg subQ once daily, have requested Pharmacy to provide bariatric dosing right leg SCD Patient is admitted to the inpatient service due to the severity of disease, risks of further disease progression and this stay is expected to exceed 2 midnights. FEN: IV fluids: saline lock, diet: heart healthy, labs: CBC, C/BMP, liver enzymes, Mag Consultants None Dispo: Eventual discharge to home Code status: Full code as discussed with the patient who identifies his older sister Sheila as his surrogate and POA. [X] I have utilized all available immediate resources to obtain, update, or review of the patient's current medications COVID-19 COVID-19 status: Negative Result date/Date tested (Pos, Neg/Pending): 06/13/21 Time Spent With Patient Critical Care time: I spent a total of [] minutes of critical care time on this patient's care today; this time is exclusive of procedural time. Scores Wells' Criteria for PE Clinical signs and symptoms of DVT: No PE is #1 Dx or equally likely: No Heart rate > 100: No Immobilization at least 3 days or surg in previous 4 weeks: Yes History of PE or DVT: No Hemoptysis: No Malignancy w/Treatment within 6 months or palliative: No Wells' PE Score total: 1.5 Quality VTE Deep Vein Thrombosis/Pulmonary Embolism Present on Admission: No MIPS - Admit I confirm the patient?s Advance Care Plan is present, Code status is documented, Surrogate decision maker is in patient?s record [If Yes, STOP here]: Yes MIPS - DC The patient has current or prior documentation of left ventricular ejection fraction (LVEF) less than 40%, or moderate or severely depressed left ventricular systolic function.: No
[2021-06-13] MEDS: ACETAMINOPHEN 325 MG TABLET 975 MG PO (22:16)
[2021-06-13] MEDS: HYDROCODONE/ACET 5/325 TABLET 1 TAB PO (22:17)
[2021-06-14] VITALS (7 sets, daily range): BP systolic 119–146; BP diastolic 72–79; PULSE 92–103; RESP 18–20; TEMP 36.3–37.1; O2SAT 94–96
[2021-06-14] MEDS: HYDROMORPHONE 2 MG TABLET PO ×3 (03:35→18:57)
[2021-06-14] MEDS: VANCOMYCIN 2,000 MG/400 ML PIGGYBACK 200 MG IV (03:36)
[2021-06-14] MEDS: ACETAMINOPHEN 325 MG TABLET 975 MG PO ×3 (06:01→20:37)
[2021-06-14 06:03] LABS: Add Manual Diff / Slide Review NO; Basophils Absolute Auto 100 /uL (0-100); Basophils Percent Auto 0.8 % (0-2); Eosinophils Absolute Auto 200 /uL (0-450); Eosinophils Percent Auto 2.2 % (2-4); Hematocrit 37.7 % (41-53); Hemoglobin 12.5 g/dL (13.5-17.5); Lymphocytes Absolute Auto 2400 /uL (1100-4500); Lymphocytes Percent Auto 24.7 % (25-40); Mean Corpuscular HGB Conc 33.1 % (30-36); Mean Corpuscular Hemoglobin 26.7 PG (26-34); Mean Corpuscular Volume 80.9 fL (80-100); Monocytes Absolute Auto 1300 /uL (0-900); Monocytes Percent Auto 13.5 % (3-14); Neutrophils Absolute Auto 5600 /uL (1500-7000); Neutrophils Percent Auto 58.8 % (50-75); Platelet Count 440 X10^3/uL (150-400); Red Blood Cell Count 4.66 X10^6/uL (4.5-5.9); White Blood Cell Count 9.5 X10^3/uL (4.5-11.0)
[2021-06-14 06:12] LABS: Alanine Aminotransferase 39 IU/L (<50); Albumin 3.9 g/dL (3.5-5.0); Albumin Globulin Ratio 0.8 (1.0-2.8); Alkaline Phosphatase 68 U/L (38-126); Aspartate Aminotransferase 29 IU/L (17-59); BUN Creatinine Ratio 12.1 (6-22); Bilirubin Total 0.3 mg/dL (0.2-1.3); Bilirubin Unconjugated 0.3 mg/dL (0.0-1.1); Blood Urea Nitrogen 13 mg/dL (9-20); Calcium 9.1 mg/dL (8.4-10.2); Carbon Dioxide 31 mmol/L (22-32); Chloride 103 mmol/L (98-107); Estimated Glomerular Filt Rate > 60.0 mL/min (>60); Globulin 5.2 g/dL (1.7-4.1); Glucose 97 mg/dL (70-100); HEMOLYSIS < 15 (0-50); Potassium 4.7 mmol/L (3.4-5.1); Sodium 138 mmol/L (137-145); Total Protein 9.1 g/dL (6.3-8.2)
[2021-06-14] MEDS: ENOXAPARIN 40 MG/0.4 ML SYRINGE SUBCUT ×2 (08:45→20:37)
--- NOTE | 2021-06-14 09:17 | CM.DANOTE ---
Discharge Assks Note: Pt is 51yo male admitted for left leg cellulitis on IV antibiotics. Pt is assigned to hospitalist team with stay expected to be greater than two midnights. Patient was recently admitted and discharged on 06/08 for similar. Patient resides at home alone with daughter visiting on weekends. 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 Patient has no history with SNF, , and does not use home O2. INS: [facility]. PCP: Silvina Cartwright Plan: patient is anticipated to discharge home when medically stable and off IV antibiotics. Patient reported transportation would be provided by family. Case management will continue to follow throughout clinical course of admission for discharge planning needs. L[facility] Discharge Planning/Care Management CM Discharge Assessment Start: 06/14/21 09:12 Freq: Status: Active Protocol: Document 06/14/21 09:12 PRINCE (Rec: 06/14/21 09:16 FJ [id number]) Discharge Planning Assessment Assigned S[employer] Lalo [facility] DPOA/Assigned Designee Name Sheila Garsia (sister) Contact Information [phone] Advance Directives? No Advance Directives on File No History Provided By Patient,Medical Record Has Patient been admitted in last 30 Yes days? Comment scrotal cellulitis since resolved Prior Living Arrangements Apartment/Condo Comment lives alone daughter visits on weekends Household Members none Type of transporation used prior to Drives own vehicle admit Independent with ADL's Yes Is patient alert and oriented? Yes Comment fully independent per pt Caregiver for Another No Comment none Barriers to Discharge No Comment finish IV antibiotics Transportation Arrangement family Whiteboard Updated in Patient Room with Yes name and ext. # of [employer] Review Status In Process Next Review Type Continued Stay Review
--- NOTE | 2021-06-14 15:40 | P.PN_ITS ---
Subjective Subjective Date Patient Seen: 06/14/21 Time Patient Seen: 08:00 Interval history: He feels his pain is slightly improved today. No fevers/chills. Exam Vital Signs (past 8 hours): - 06/14/21 08:00 06/14/21 08:03 06/14/21 08:11 Temperature 97.5 F L Pulse Rate 92 H Respiratory Rate 20 Blood Pressure 119/77 Pulse Oximetry 95 94 95 Oxygen Delivery Method Room Air Oxygen Flow Rate 0 Narrative Exam Narrative: Gen: no acute distress Resp: clear bilaterally CV: regular rate and rhythm, no murmurs Abd: soft, non-tender, normal bowel sounds Skin: left medial lower extremity with erythema, and swelling Objective Labs Result Diagrams: 06/14/21 05:42 06/14/21 05:42 Labs: Laboratory Results - last 24 hr 06/13/21 06/13/21 06/13/21 18:01 18:01 18:01 WBC 10.1 RBC 5.00 Hgb 13.6 Hct 40.5 L MCV 81.0 MCH 27.1 MCHC 33.5 RDW 15.4 H Plt Count 440 H Neut % (Auto) 54.9 Lymph % (Auto) 31.8 [place] % (Auto) 10.8 Eos % (Auto) 1.3 L Baso % (Auto) 1.2 Neut # (Auto) 5600 Lymph # (Auto) 3200 [place] # (Auto) 1100 H Eos # (Auto) 100 Baso # (Auto) 100 Sodium 138 Potassium 4.4 Chloride 102 Carbon Dioxide 30 BUN 15 Creatinine 1.04 Estimated GFR > 60.0 BUN/Creatinine Ratio 14.4 Glucose 102 H Lactate 1.4 Calcium 9.5 Total Bilirubin 0.4 Conjugated Bilirubin Unconjugated Bilirubin AST 36 ALT 48 Alkaline Phosphatase 85 Total Creatine Kinase 44 L CK-MB (CK-2) TNP CK-MB (CK-2) Rel Index TNP Troponin I < 0.012 Total Protein 9.6 H Albumin 4.4 Globulin 5.2 H Albumin/Globulin Ratio 0.8 L Procalcitonin 0.08 Urine Color Urine Appearance Urine pH Ur Specific [place] Urine Protein Urine Glucose (UA) Urine Ketones Urine Occult Blood Urine Nitrate Urine Bilirubin Urine Urobilinogen Ur Leukocyte Esterase Urine RBC Urine WBC Ur Squamous Epith Cells Urine Bacteria Ur Culture Indicated? SARS-CoV-2 (PCR) 06/13/21 06/13/21 06/14/21 19:30 20:20 05:42 WBC 9.5 RBC 4.66 Hgb 12.5 L Hct 37.7 L MCV 80.9 MCH 26.7 MCHC 33.1 RDW 15.0 H Plt Count 440 H Neut % (Auto) 58.8 Lymph % (Auto) 24.7 L [place] % (Auto) 13.5 Eos % (Auto) 2.2 Baso % (Auto) 0.8 Neut # (Auto) 5600 Lymph # (Auto) 2400 [place] # (Auto) 1300 H Eos # (Auto) 200 Baso # (Auto) 100 Sodium Potassium Chloride Carbon Dioxide BUN Creatinine Estimated GFR BUN/Creatinine Ratio Glucose Lactate Calcium Total Bilirubin Conjugated Bilirubin Unconjugated Bilirubin AST ALT Alkaline Phosphatase Total Creatine Kinase CK-MB (CK-2) CK-MB (CK-2) Rel Index Troponin I Total Protein Albumin Globulin Albumin/Globulin Ratio Procalcitonin Urine Color Yellow Urine Appearance Clear Urine pH 6.0 Ur Specific [place] 1.010 Urine Protein Negative Urine Glucose (UA) Negative Urine Ketones Negative Urine Occult Blood Negative Urine Nitrate Negative Urine Bilirubin Negative Urine Urobilinogen 0.2 Ur Leukocyte Esterase Negative Urine RBC 1-5/hpf Urine WBC 1-5/hpf Ur Squamous Epith Cells 1-5 /hpf Urine Bacteria None seen Ur Culture Indicated? Cult not indicated SARS-CoV-2 (PCR) Negative 06/14/21 05:42 WBC RBC Hgb Hct MCV MCH MCHC RDW Plt Count Neut % (Auto) Lymph % (Auto) [place] % (Auto) Eos % (Auto) Baso % (Auto) Neut # (Auto) Lymph # (Auto) [place] # (Auto) Eos # (Auto) Baso # (Auto) Sodium 138 Potassium 4.7 Chloride 103 Carbon Dioxide 31 BUN 13 Creatinine 1.07 Estimated GFR > 60.0 BUN/Creatinine Ratio 12.1 Glucose 97 Lactate Calcium 9.1 Total Bilirubin 0.3 Conjugated Bilirubin 0.0 Unconjugated Bilirubin 0.3 AST 29 ALT 39 Alkaline Phosphatase 68 Total Creatine Kinase CK-MB (CK-2) CK-MB (CK-2) Rel Index Troponin I Total Protein 9.1 H Albumin 3.9 Globulin 5.2 H Albumin/Globulin Ratio 0.8 L Procalcitonin Urine Color Urine Appearance Urine pH Ur Specific [place] Urine Protein Urine Glucose (UA) Urine Ketones Urine Occult Blood Urine Nitrate Urine Bilirubin Urine Urobilinogen Ur Leukocyte Esterase Urine RBC Urine WBC Ur Squamous Epith Cells Urine Bacteria Ur Culture Indicated? SARS-CoV-2 (PCR) [facility] Medical History Cellulitis of left leg Chronic low back pain History of recent hospitalization Morbid obesity Morbid obesity DAVON (obstructive sleep apnea) Surgical History H/O laceration repair Family History Father Diabetes mellitus Cancer Mother Healthy adult Asthma Social History household members: none Smoking Status: Former smoker alcohol intake: current Assessment & Plan Assessment & Plan narrative: Kenan Dougherty, recently discharged for scrotal cellulitis will be admitted for cellulitis of the left leg which is apparently not been improving since discharge on Tuesday the . 1. Cellulitis of the left lower leg, acute, present on admission -He is started on IV ceftriaxone and Levaquin -He will be continued on IV ceftriaxone and vancomycin -Blood cultures are pending -Pain control with scheduled Tylenol, hydrocodone and oral hydromorphone for now 2. Obstructive sleep apnea on CPAP -?RT consult to set up CPAP for him 3. History of scrotal infection and recent admission for such -This is resolved 4. Morbid obesity, chronic and present on admission -He has a BMI of 56.3 which puts him at greater risk for medical and surgical complications. Time Spent With Patient Critical Care time: I spent a total of [] minutes of critical care time on this patient's care today; this time is exclusive of procedural time. Quality VTE Deep Vein Thrombosis/Pulmonary Embolism Present on Admission: No
[2021-06-14] MEDS: VANCOMYCIN 1,500 MG/300 ML PIGGYBACK 200 MG IV (16:05)
[2021-06-14] MEDS: cefTRIAXone 1,000 MG in SODIUM CHLORIDE 0.9% 100 ML 200 ML IV (20:30)
[2021-06-15] VITALS (9 sets, daily range): BP systolic 132–155; BP diastolic 71–86; PULSE 86–103; RESP 16–20; TEMP 36.1–37.2; O2SAT 93–97
[2021-06-15] MEDS: ACETAMINOPHEN 325 MG TABLET 975 MG PO ×3 (04:46→21:16)
[2021-06-15] MEDS: VANCOMYCIN 1,500 MG/300 ML PIGGYBACK 200 MG IV ×2 (04:46→17:20)
[2021-06-15] MEDS: HYDROMORPHONE 2 MG TABLET PO ×3 (04:49→15:33)
[2021-06-15 06:29] LABS: Hematocrit 38.6 % (41-53); Hemoglobin 12.6 g/dL (13.5-17.5); Mean Corpuscular HGB Conc 32.7 % (30-36); Mean Corpuscular Hemoglobin 26.6 PG (26-34); Mean Corpuscular Volume 81.4 fL (80-100); Platelet Count 449 X10^3/uL (150-400); Red Blood Cell Count 4.75 X10^6/uL (4.5-5.9); Red Cell Distribution Width 14.7 % (11.6-14.8); White Blood Cell Count 8.8 X10^3/uL (4.5-11.0)
[2021-06-15 06:39] LABS: BUN Creatinine Ratio 14.7 (6-22); Blood Urea Nitrogen 14 mg/dL (9-20); Calcium 8.9 mg/dL (8.4-10.2); Carbon Dioxide 29 mmol/L (22-32); Chloride 103 mmol/L (98-107); Estimated Glomerular Filt Rate > 60.0 mL/min (>60); Glucose 104 mg/dL (70-100); HEMOLYSIS < 15 (0-50); Potassium 4.1 mmol/L (3.4-5.1); Sodium 137 mmol/L (137-145)
[2021-06-15] MEDS: ENOXAPARIN 40 MG/0.4 ML SYRINGE SUBCUT ×2 (09:44→21:17)
--- NOTE | 2021-06-15 12:21 | PM.PN.1 ---
Subjective Subjective Date Patient Seen: 06/15/21 Time Patient Seen: 12:21 Interval history: R pain and swelling still present, not much change today. Denies fever or chills. No nausea or vomiting. Exam Vital Signs (past 8 hours): - 06/15/21 04:52 06/15/21 07:40 06/15/21 08:28 Temperature 97.7 F 99.0 F Pulse Rate 96 H 89 Respiratory Rate 16 18 Blood Pressure 155/83 H 151/85 H Pulse Oximetry 94 95 93 Oxygen Delivery Method Room Air Oxygen Flow Rate 0 Narrative Exam Narrative: General:? Patient is well developed and well nourished, obese with BMI 56, no acute distress. HEENT:? Normocephalic, atraumatic, extraocular muscles intact, oral pharynx is clear and mucous membranes are moist. Neck: supple and symmetric, trachea is midline, no cervical adenopathy. Negative for JVD Chest:? Normal AP diameter and contour without kyphoscoliosis, no tachypnea, equal chest rise bilaterally. Lungs:? CTA b/l no wheezing rhonchi or rales. Cardio:?RRR, no m/r/g. Abdomen: S NT ND. groin as noted below in skin. Musculoskeletal:? Muscle strength and tone are equal within normal limits, no deformity. Extremities: No edema or joint effusions. No cyanosis or clubbing. Skin:?No necrosis is evident, erythema and warmth on the calf circumferentially. Slight improvement compared to previous marked line.. Neuro:? Alert and orientated x3,? sensation to touch intact in all extremities, no gross deficits noted of cranial nerves. Psych:? Patient has a well-kept appearance, appropriate affect, mental status attitude thought context and judgment are appropriate for age. Objective Labs Result Diagrams: 06/15/21 06:14 06/15/21 06:14 Labs: Laboratory Results - last 24 hr 06/15/21 06/15/21 06:14 06:14 WBC 8.8 RBC 4.75 Hgb 12.6 L Hct 38.6 L MCV 81.4 MCH 26.6 MCHC 32.7 RDW 14.7 Plt Count 449 H Sodium 137 Potassium 4.1 Chloride 103 Carbon Dioxide 29 BUN 14 Creatinine 0.95 Estimated GFR > 60.0 BUN/Creatinine Ratio 14.7 Glucose 104 H Calcium 8.9 PFSH Medical History Cellulitis of left leg Chronic low back pain History of recent hospitalization Morbid obesity Morbid obesity DAVON (obstructive sleep apnea) Surgical History H/O laceration repair Family History Father Diabetes mellitus Cancer Mother Healthy adult Asthma Social History household members: none Smoking Status: Former smoker alcohol intake: current Assessment & Plan Assessment & Plan narrative: Kenan Dougherty, recently discharged for scrotal cellulitis will be admitted for cellulitis of the left leg which is apparently not been improving since discharge on Tuesday the . 1. Cellulitis of the left lower leg, acute, present on admission -He will be continued on IV ceftriaxone and vancomycin -Blood cultures are pending -Pain control with scheduled Tylenol, hydrocodone and oral hydromorphone for now -consider ID consultation given recurrence for possible prolonged IV therapy or possible evaluation of lymphadenopathy. 2. Obstructive sleep apnea on CPAP -?RT consult to set up CPAP for him 3. History of scrotal infection and recent admission for such -This is resolved 4. Morbid obesity, chronic and present on admission -He has a BMI of 56.3 which puts him at greater risk for medical and surgical complications. Time Spent With Patient Critical Care time: I spent a total of [] minutes of critical care time on this patient's care today; this time is exclusive of procedural time. Quality VTE Deep Vein Thrombosis/Pulmonary Embolism Present on Admission: No
[2021-06-15 17:08] LABS: Vancomycin Trough 8.6 ug/mL (10-20)
--- NOTE | 2021-06-15 17:08 | PC.NURSE ---
Verified with lab that vanco trough is still in process. Continue to follow for dosing.
[2021-06-15] MEDS: VANCOMYCIN TROUGH 1 REQUEST MISC (17:26)
[2021-06-15] MEDS: cefTRIAXone 1,000 MG in SODIUM CHLORIDE 0.9% 100 ML 200 ML IV (21:16)
[2021-06-15] MEDS: VANCOMYCIN PEAK 1 REQUEST MISC (21:25)
[2021-06-15 21:47] LABS: Vancomycin Peak 18.4 ug/mL (20-40)
[2021-06-16] MEDS: HYDROMORPHONE 2 MG TABLET PO ×3 (04:00→19:48)
[2021-06-16] MEDS: SODIUM CHLORIDE 0.9% FLUSH 10 ML IV ×3 (04:02→21:03)
[2021-06-16] MEDS: VANCOMYCIN 1,500 MG/300 ML PIGGYBACK 200 MG IV (04:24)
[2021-06-16] MEDS: ACETAMINOPHEN 325 MG TABLET 975 MG PO ×3 (04:41→21:03)
[2021-06-16 04:45] VITALS: BP 154/92; PULSE 98; RESP 18; TEMP 36.6; O2SAT 98
[2021-06-16 05:52] LABS: BUN Creatinine Ratio 17.5 (6-22); Blood Urea Nitrogen 17 mg/dL (9-20); Calcium 9.1 mg/dL (8.4-10.2); Carbon Dioxide 30 mmol/L (22-32); Chloride 103 mmol/L (98-107); Estimated Glomerular Filt Rate > 60.0 mL/min (>60); Glucose 110 mg/dL (70-100); HEMOLYSIS < 15 (0-50); Potassium 4.5 mmol/L (3.4-5.1); Sodium 136 mmol/L (137-145)
[2021-06-16] MEDS: ENOXAPARIN 40 MG/0.4 ML SYRINGE SUBCUT ×2 (08:40→21:03)
[2021-06-16 10:17] VITALS: O2SAT 94
[2021-06-16 12:00] VITALS: BP 134/82; PULSE 94; RESP 18; TEMP 36.7; O2SAT 93
[2021-06-16 18:00] VITALS: BP 130/81; PULSE 86; RESP 18; TEMP 36.8; O2SAT 95
--- NOTE | 2021-06-16 19:06 | P.PN_ITS ---
Subjective Subjective Date Patient Seen: 06/16/21 Time Patient Seen: 19:06 Interval history: Denies fever or chills. No nausea or vomiting. Cellulitis is slightly improved today. I did discuss with Infectious Disease at [facility] who recommended to discharge the patient once ready on linezolid for 2 weeks total, possibly with an oral cephalosporin as well. Further recommended outpatient follow-up with infectious disease clinic for recurrent cellulitis. Exam Vital Signs (past 8 hours): - 06/16/21 12:00 06/16/21 18:00 Temperature 98.0 F 98.2 F Pulse Rate 94 H 86 Respiratory Rate 18 18 Blood Pressure 134/82 130/81 Pulse Oximetry 93 95 Oxygen Delivery Method Room Air Oxygen Flow Rate 0 Narrative Exam Narrative: General:? Patient is well developed and well nourished, obese with BMI 56, no acute distress. HEENT:? Normocephalic, atraumatic, extraocular muscles intact, oral pharynx is clear and mucous membranes are moist. Neck: supple and symmetric, trachea is midline, no cervical adenopathy. Negative for JVD Chest:? Normal AP diameter and contour without kyphoscoliosis, no tachypnea, equal chest rise bilaterally. Lungs:? CTA b/l no wheezing rhonchi or rales. Cardio:?RRR, no m/r/g. Abdomen: S NT ND. groin as noted below in skin. Musculoskeletal:? Muscle strength and tone are equal within normal limits, no deformity. Extremities: No edema or joint effusions. No cyanosis or clubbing. Skin:?No necrosis is evident, erythema and warmth on the calf circumferentially. Slight improvement compared to previous marked line.. Neuro:? Alert and orientated x3,? sensation to touch intact in all extremities, no gross deficits noted of cranial nerves. Psych:? Patient has a well-kept appearance, appropriate affect, mental status attitude thought context and judgment are appropriate for age. Objective Labs Result Diagrams: 06/15/21 06:14 06/16/21 05:30 Labs: Laboratory Results - last 24 hr 06/15/21 06/16/21 20:59 05:30 Sodium 136 L Potassium 4.5 Chloride 103 Carbon Dioxide 30 BUN 17 Creatinine 0.97 Estimated GFR > 60.0 BUN/Creatinine Ratio 17.5 Glucose 110 H Calcium 9.1 Vancomycin Peak 18.4 L PFSH Medical History Cellulitis of left leg Chronic low back pain History of recent hospitalization Morbid obesity Morbid obesity DAVON (obstructive sleep apnea) Surgical History H/O laceration repair Family History Father Diabetes mellitus Cancer Mother Healthy adult Asthma Social History household members: none Smoking Status: Former smoker alcohol intake: current Assessment & Plan Assessment & Plan narrative: Kenan Dougherty, recently discharged for scrotal cellulitis will be admitted for cellulitis of the left leg which is apparently not been improving since discharge on Tuesday the . 1. Cellulitis of the left lower leg, acute, present on admission -continue IV ceftriaxone today, change to linezolid per ID recommendations. -Blood cultures are pending -Pain control with scheduled Tylenol, hydrocodone and oral hydromorphone for now 2. Obstructive sleep apnea on CPAP -?RT consult to set up CPAP for him 3. History of scrotal infection and recent admission for such -This is resolved 4. Morbid obesity, chronic and present on admission -He has a BMI of 56.3 which puts him at greater risk for medical and surgical c omplications. dispo: probable discharge home tomorrow with outpatient ID follow up recommended. Time Spent With Patient Critical Care time: I spent a total of [] minutes of critical care time on this patient's care today; this time is exclusive of procedural time. Quality VTE Deep Vein Thrombosis/Pulmonary Embolism Present on Admission: No
[2021-06-16 19:55] VITALS: PULSE 89; RESP 16; O2SAT 97
[2021-06-16 20:30] VITALS: BP 119/65; PULSE 89; RESP 18; TEMP 36.5; O2SAT 97
[2021-06-16] MEDS: LINEZOLID 600 MG TABLET PO (21:03)
[2021-06-16] MEDS: cefTRIAXone 1,000 MG in SODIUM CHLORIDE 0.9% 100 ML 200 ML IV (21:03)
--- NOTE | 2021-06-17 00:11 | PC.NURSE ---
Patient is alert and oriented. Breath sounds CTA with RA sat of 97%. HRR. Denied nausea. BT hypoactive; reports he had BM. Denied dysuria, frequency or urgency with urination. Independent with mobility. Left LE is brown discoloration with some pinkness to it. 1-2+ edema and feels tight. Did complain of 7/10 pain and was medicated with Dilaudid at 1948 and is currently asleep. Refused to wear SCD on right leg as is up too frequently; reminded to ankle wave. Fall risk score is low.
[2021-06-17 04:51] VITALS: BP 136/75; PULSE 95; RESP 18; TEMP 36.5; O2SAT 95
[2021-06-17] MEDS: ACETAMINOPHEN 325 MG TABLET 975 MG PO (05:01)
[2021-06-17 06:31] LABS: Add Manual Diff / Slide Review NO; Basophils Absolute Auto 100 /uL (0-100); Basophils Percent Auto 1.1 % (0-2); Eosinophils Absolute Auto 100 /uL (0-450); Eosinophils Percent Auto 1.8 % (2-4); Hematocrit 39.1 % (41-53); Lymphocytes Absolute Auto 2900 /uL (1100-4500); Lymphocytes Percent Auto 37.5 % (25-40); Mean Corpuscular HGB Conc 33.1 % (30-36); Mean Corpuscular Hemoglobin 26.8 PG (26-34); Mean Corpuscular Volume 80.8 fL (80-100); Monocytes Absolute Auto 800 /uL (0-900); Monocytes Percent Auto 9.9 % (3-14); Neutrophils Absolute Auto 3900 /uL (1500-7000); Neutrophils Percent Auto 49.7 % (50-75); Platelet Count 490 X10^3/uL (150-400); Red Blood Cell Count 4.84 X10^6/uL (4.5-5.9); White Blood Cell Count 7.8 X10^3/uL (4.5-11.0)
[2021-06-17 06:36] LABS: BUN Creatinine Ratio 16.7 (6-22); Blood Urea Nitrogen 19 mg/dL (9-20); Calcium 9.1 mg/dL (8.4-10.2); Carbon Dioxide 31 mmol/L (22-32); Chloride 102 mmol/L (98-107); Estimated Glomerular Filt Rate > 60.0 mL/min (>60); Glucose 119 mg/dL (70-100); HEMOLYSIS < 15 (0-50); Magnesium 2.1 mg/dL (1.6-2.3); Potassium 4.6 mmol/L (3.4-5.1); Sodium 138 mmol/L (137-145)
[2021-06-17 07:00] VITALS: O2SAT 94
--- NOTE | 2021-06-17 09:14 | P.DS_ITS ---
History of Present Illness History of Present Illness Date Patient Seen: 06/17/21 Time Patient Seen: 09:14 Chief complaint: Recurring Infection lower extremites Narrative: QUINTON Saucedo: Kenan Dougherty is a 51 male with a history of recurrent infections of his left leg he attributes to a series injury he sustained to it and 1996 and was just discharged this past Tuesday the with a scrotal cellulitis that resolved but then started to develop early cellulitis of the left leg and was discharged on oral antibiotics. He developed left leg cellulitis around June 06, was treated with IV antibiotics and discharged home on Cipro and Keflex.? Since he has been home he reports it has gone more painful but is still able to ambulate.? Stated his last oral antibiotic dose was to be for tomorrow and that he was unable to get into his PCP for follow-up until Tuesday of next week.? Denies any fever or chills, nausea or vomiting, abdominal pain, scrotal pain or dysurea, diarrhea or constipation.? His older sister in the room states his infections come on very quickly and that they recently lost a younger brother at 32 to sepsis that affected his aorta. She stated they advised him he should see and infectious disease specialist and contact printer dry film when he was discharged on Tuesday, however I am not able to see any referrals in the chart. Patient underwent vascular ultrasonography and was not found to have a DVT.? He is afebrile, blood pressure 166/84, heart rate 99, respiratory rate 22, oxygen saturation of 95% on room air, he weighs 183 kg with a BMI of 56.2.? Is unremarkable, chemistries are unremarkable he has a mildly elevated glucose of 102, procalcitonin is within normal limits UA is negative for UTI and COVID-19 PCR is negative. Discharge Providers Provider Date of admission: 06/13/21 20:23 Discharge Date: 06/17/21 Primary care physician: Silvina Cartwright MD Consults: 06/13/21 23:10 Consult to Pharmacy Routine Comment: bariatric dosing for lovenox Discharge provider: Wiley Carvajal DO Summary Hospital Course Discharge Diagnosis: 1. Recurrent Cellulitis of the left lower leg, acute, present on admission 2. Obstructive sleep apnea on CPAP 3. History of scrotal infection and recent admission for such 4. Morbid obesity, chronic and present on admission 5. Chronic venous statsis. Hospital Course: Kenan Dougherty is a 51-year-old male with a past medical history of obesity, who was recently admitted for a groin and lower leg cellulitis on the left who re- presented with recurrent cellulitis on his left lower leg with continued antibiotics. This was his 4th episode within the last 4 months of cellulitis of his left side. He Was placed on ceftriaxone and vancomycin again with slow improvement in his symptoms and on the day of discharge he had minimal pain and his erythema had much improved. Blood cultures were again negative. Discussed on the phone with [facility] infectious disease who recommended 2 weeks of linezolid with or without an oral cephalosporin on discharge. They further recommended outpatient follow-up with Infectious Disease to discuss chronic suppressive therapy to prevent recurrence. Given his multiple recurrences an oral cephalosporin was prescribed on discharge. An outpatient appointment was made with Infectious Disease, but the patient needs to obtain a referral from his primary care provider per the infectious disease clinic. Time Spent with Patient Time spent: Greater than 30 minutes Exam Vital Signs (past 8 hours): - 06/17/21 04:51 Temperature 97.7 F Pulse Rate 95 H Respiratory Rate 18 Blood Pressure 136/75 Pulse Oximetry 95 Oxygen Delivery Method Room Air Oxygen Flow Rate 0 Narrative Exam Narrative: General:? Patient is well developed and well nourished, obese with BMI 56, no acute distress. HEENT:? Normocephalic, atraumatic, extraocular muscles intact, oral pharynx is clear and mucous membranes are moist. Neck: supple and symmetric, trachea is midline, no cervical adenopathy. Negative for JVD Chest:? Normal AP diameter and contour without kyphoscoliosis, no tachypnea, equal chest rise bilaterally. Lungs:? CTA b/l no wheezing rhonchi or rales. Cardio:?RRR, no m/r/g. Abdomen: S NT ND. groin as noted below in skin. Musculoskeletal:? Muscle strength and tone are equal within normal limits, no deformity. Extremities: No edema or joint effusions. No cyanosis or clubbing. Skin:? Chronic venous stasis changes with very minimal erythema on the left, no tenderness or warmth is noted. Neuro:? Alert and orientated x3,? sensation to touch intact in all extremities, no gross deficits noted of cranial nerves. Psych:? Patient has a well-kept appearance, appropriate affect, mental status attitude thought context and judgment are appropriate for age. Objective Labs Result Diagrams: 06/17/21 06:00 06/17/21 06:00 Labs: Laboratory Results - last 24 hr 06/17/21 06/17/21 06:00 06:00 WBC 7.8 RBC 4.84 Hgb 13.0 L Hct 39.1 L MCV 80.8 MCH 26.8 MCHC 33.1 RDW 15.0 H Plt Count 490 H Neut % (Auto) 49.7 L Lymph % (Auto) 37.5 [place] % (Auto) 9.9 Eos % (Auto) 1.8 L Baso % (Auto) 1.1 Neut # (Auto) 3900 Lymph # (Auto) 2900 [place] # (Auto) 800 Eos # (Auto) 100 Baso # (Auto) 100 Sodium 138 Potassium 4.6 Chloride 102 Carbon Dioxide 31 BUN 19 Creatinine 1.14 Estimated GFR > 60.0 BUN/Creatinine Ratio 16.7 Glucose 119 H Calcium 9.1 Magnesium 2.1 PFSH Medical History Cellulitis of left leg Chronic low back pain History of recent hospitalization Morbid obesity Morbid obesity DAVON (obstructive sleep apnea) Surgical History H/O laceration repair Family History Father Diabetes mellitus Cancer Mother Healthy adult Asthma Social History household members: none Smoking Status: Former smoker alcohol intake: current Discharge Plan Discharge Plan Patient Disposition: Home Provider Discharge Comment: You were admitted to the hospital with recurrent cellulitis. Please follow up with infectious disease provider at [facility] for possible shelter suppressive therapy to prevent recurrence. You have an appointment scheduled with them on 06/29/2021 at 3pm. You should obtain an official referral from your PCP office as they cannot accept referral from the hospitalist here. 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 Discharge orders & Medications Prescriptions: New linezolid 600 mg tablet 600 mg PO Q12H 14 Days Qty: 28 0RF cefdinir 300 mg capsule 300 mg PO BID 14 Days Qty: 28 0RF Continued ibuprofen 200 mg Tablet 400 mg PO Q6H 0RF hydromorphone 2 mg Tablet 2 mg PO Q6HR PRN (Reason: pain) Qty: 20 0RF Discontinued cephalexin 500 mg tablet 500 mg PO QID Qty: 28 0RF ciprofloxacin HCl 500 mg tablet 500 mg PO Q12H Qty: 14 0RF Follow up/Referrals: Silvina Cartwright MD [Primary Care Provider] - Diet/Activity/Treatments Diet: Diet as Tolerated Activity: As tolerated Discharge Data Primary Care Provider: Silvina Cartwright Quality VTE Deep Vein Thrombosis/Pulmonary Embolism Present on Admission: No
[2021-06-17] MEDS: SODIUM CHLORIDE 0.9% FLUSH 10 ML IV (09:23)
[2021-06-17] MEDS: LINEZOLID 600 MG TABLET PO (09:23)
[2021-06-17] MEDS: ENOXAPARIN 40 MG/0.4 ML SYRINGE SUBCUT (09:23)
[2021-06-17 09:38] VITALS: BP 121/70; PULSE 86; RESP 22; TEMP 35.9; O2SAT 94
[2021-06-17 11:04] VITALS: O2SAT 94
--- NOTE | 2021-06-17 11:27 | PC.NURSE ---
Pt discharged at 1125, ambulated off the floor accompanied by hospital staff and family. IV removed, discharged teaching completed, follow up appointments and new medications reviewed. Questions answered. All patient belongings left with patient.
--- NOTE | 2021-06-17 11:53 | CM.DPC ---
DCP Discharge Home Per MD, pt is medically stable to d/c home today and consulted with ID MD and pt able to d/c on oral abx and meds and pt now scheduled for follow up with ID on June 29. Per RN, no concerns and pt discharged this morning after teaching and discharge instructions given. Plan: Patient discharged home this morning with outpt f/u and oral meds and no further SW needs at this time. KIKA Georges
== END 2021-06-17 11:30 | disposition home or self-care (01) | DRG 603 ==
LOC: ED 20:16 → AC 20:24
PROVIDERS: Emergency Medicine; Internal Medicine; Admitting Provider Nurse Practitioner Family; Emergency Provider Emergency Medicine; Family Provider Family Medicine; PCP Family Medicine; Referring Provider Emergency Medicine; Visit Provider Nurse Practitioner Family
DX: L03.116 Cellulitis of left lower limb (principal); Z68.43 Body mass index [BMI] 50.0-59.9, adult; G47.33 Obstructive sleep apnea (adult) (pediatric); E66.01 Morbid (severe) obesity due to excess calories; Z20.822 Contact with and (suspected) exposure to COVID-19; Z87.891 Personal history of nicotine dependence
CPT/HCPCS: 36415; 36592; 80048; 80053; 80076; 80202; 81001; 82550; 83605; 83735; 84145; 84484; 85025; 85027; 87040; 87635; 93971; 94760; 96365; 96375; 99284; C9803; J0696; J1170; J1650; J1956

== ENCOUNTER 2021-07-20 10:52 | Emergency (ER) | payer OTHER, SELFPAY ==
[2021-06-13 21:49] VITALS: BMI 56.2
[2021-07-20 10:49] VITALS: BP 127/75; PULSE 85; RESP 20; TEMP 36.5; O2SAT 95; BMI 51.5
--- NOTE | 2021-07-20 10:53 | ED_ITS ---
HPI - SOB/Dyspnea General Chief Complaint: Shortness of Breath/Dyspnea Stated Complaint: Short of breath Time Seen by Provider: 07/20/21 10:52 History of Present Illness HPI Narrative: 51M former smoker (quit 7 months ago) with history of sleep apnea, morbid obesity, chronic low back pain and bronchitis presents by EMS for evaluation of shortness of breath that started 1-2 hours ago. He denies any obvious provocation or palliation of his shortness of breath. He denies any change in weight, medications or diet. He denies any lower extremity swelling. He has had no recent trauma or injury, travel, history of clot or known cancer. He denies dizziness, weakness or lightheadedness. He denies any chest pain. He has had some runny nose and occasional dry cough. Related Data Home Medications Medication Instructions Recorded Confirmed ibuprofen 200 mg tablet 400 mg PO Q6H 06/13/21 06/13/21 Previous Rx's Medication Instructions Recorded hydromorphone 2 mg tablet 2 mg PO Q6HR PRN #20 tab 06/08/21 Allergies Allergy/AdvReac Type Severity Reaction Status Date / Time Sulfa (Sulfonamide Allergy Verified 07/20/21 10:55 Antibiotics) Review of Systems Review of Systems Narrative: GENERAL: Denies chills, fatigue, malaise, fever, sweats. HEENT: Denies sinus pain, ear pain, sore throat, difficulty swallowing, dizziness. RESPIRATORY: See HPI CARDIOVASCULAR: Denies chest pain, palpitations, orthopnea, edema, GASTROINTESTINAL: Denies nausea, vomiting, abdominal pain, diarrhea, constipation, melena. : Denies dysuria, frequency, incontinence, hematuria, urinary retention. MUSCULOSKELETAL: denies weakness, joint pain, or bony pain SKIN: Denies rash, skin lesions, or other NEUROLOGIC: Denies weakness, headache, numbness, change in speech, confusion, seizures, incoordination. PSYCHIATRIC: No concerning psychosocial issues. 12 point review of systems is negative except for those stated above Patient History Medical History Cellulitis of left leg Chronic low back pain History of recent hospitalization Morbid obesity Morbid obesity DAVON (obstructive sleep apnea) Surgical History H/O laceration repair Family History Father Diabetes mellitus Cancer Mother Healthy adult Asthma Social History household members: none Smoking Status: Former smoker alcohol intake: current Smoking Status: Former smoker alcohol intake frequency: holidays/special occasions only Substance Use Type: does not use Exam Narrative Exam Narrative: GENERAL: [51] year old patient appears stated age. Well-developed patient, in mild distress. HEAD: Atraumatic. Normocephalic. EYES: Pupils equal round and reactive. Extraocular motions intact. No scleral icterus. No injection or drainage. ENT: Nose without bleeding, purulent drainage. Throat without erythema, tonsillar hypertrophy or exudate. Airway patent. NECK: Trachea midline. Non tender CARDIOVASCULAR: Regular rate and rhythm without murmurs, gallops, or rubs. RESPIRATORY: Clear to auscultation. Breath sounds equal bilaterally. No wheezes, rales, or rhonchi. GASTROINTESTINAL: Abdomen soft, non-tender, nondistended. EXTREMITIES: No edema or joint tenderness. BACK: Nontender without deformity or crepitance. No flank tenderness. NEURO: AOx3. SKIN: No rash or erythema of visible areas Initial Vital Signs Initial Vital Signs: Vital Signs Temperature 97.7 F 07/20/21 10:49 Pulse Rate 85 07/20/21 10:49 Respiratory Rate 20 07/20/21 10:49 Blood Pressure 127/75 07/20/21 10:49 Pulse Oximetry 95 07/20/21 10:49 Course Orders Ordered: ED Orders 07/20/21 10:53 XR chest 1V Stat EKG-12 Lead Stat 07/20/21 11:30 COVID19 -Nasal RAPID/Pre-Proc Stat Complete Blood Count AUTO DIFF Stat Comprehensive Metabolic Panel Stat D Dimer Stat Lipase Stat NT-proBNP (BNP-Adult 18+) Stat Procalcitonin Stat Troponin & CK Cardiac Panel Stat Sodium Chloride (Normal Saline 0.9%) 1,000 mls @ 150 mls/hr IV CONT NAMITA Last Admin: 07/20/21 11:33 Dose: 150 mls/hr Documented by: KIMBER Vital Signs Vital signs: Vital Signs - 8 hr 07/20/21 10:49 Temperature 97.7 F Pulse Rate 85 Respiratory Rate 20 Blood Pressure 127/75 Pulse Oximetry 95 MDM - SOB/Dyspnea Lab Data Result diagrams: 07/20/21 11:30 07/20/21 11:30 Labs: Lab Results 07/20/21 07/20/21 07/20/21 Range/Units 11:30 11:30 11:30 WBC 7.4 (4.5-11.0) X10^3/uL RBC 5.32 (4.5-5.9) X10^6/uL Hgb 14.3 (13.5-17.5) g/dL Hct 43.8 (41-53) % MCV 82.3 (80-100) fL MCH 26.8 (26-34) PG MCHC 32.6 (30-36) % RDW 15.9 H (11.6-14.8) % Plt Count 281 (150-400) X10^3/uL Neut % (Auto) 51.8 (50-75) % Lymph % (Auto) 29.5 (25-40) % [place] % (Auto) 12.9 (3-14) % Eos % (Auto) 5.2 H (2-4) % Baso % (Auto) 0.6 (0-2) % Neut # (Auto) 3800 (7462-8752) /uL Lymph # (Auto) 2200 (1095-7487) /uL [place] # (Auto) 1000 H (0-900) /uL Eos # (Auto) 400 (0-450) /uL Baso # (Auto) 0 (0-100) /uL D-Dimer < 200 (<230) ng/mL Sodium (137-145) mmol/L Potassium (3.4-5.1) mmol/L Chloride (98-107) mmol/L Carbon Dioxide (22-32) mmol/L BUN (9-20) mg/dL Creatinine (0.66-1.25) mg/dL Estimated GFR (>60) mL/min BUN/Creatinine Ratio (6-22) Glucose (70-100) mg/dL Calcium (8.4-10.2) mg/dL Total Bilirubin (0.2-1.3) mg/dL AST (17-59) IU/L ALT (<50) IU/L Alkaline Phosphatase (38-126) U/L Total Creatine Kinase (55-170) U/L CK-MB (CK-2) CK-MB (CK-2) Rel Index Troponin I (0.01-0.034) ng/mL NT-Pro-B Natriuret Pep 25 (<125) pg/mL Total Protein (6.3-8.2) g/dL Albumin (3.5-5.0) g/dL Globulin (1.7-4.1) g/dL Albumin/Globulin Ratio (1.0-2.8) Lipase (23-300) U/L Procalcitonin 0.05 (<0.5) ng/mL SARS-CoV-2 (PCR) (Negative) 07/20/21 07/20/21 Range/Units 11:30 11:30 WBC (4.5-11.0) X10^3/uL RBC (4.5-5.9) X10^6/uL Hgb (13.5-17.5) g/dL Hct (41-53) % MCV (80-100) fL MCH (26-34) PG MCHC (30-36) % RDW (11.6-14.8) % Plt Count (150-400) X10^3/uL Neut % (Auto) (50-75) % Lymph % (Auto) (25-40) % [place] % (Auto) (3-14) % Eos % (Auto) (2-4) % Baso % (Auto) (0-2) % Neut # (Auto) (8190-4470) /uL Lymph # (Auto) (4963-3455) /uL [place] # (Auto) (0-900) /uL Eos # (Auto) (0-450) /uL Baso # (Auto) (0-100) /uL D-Dimer (<230) ng/mL Sodium 141 (137-145) mmol/L Potassium 4.2 (3.4-5.1) mmol/L Chloride 107 (98-107) mmol/L Carbon Dioxide 29 (22-32) mmol/L BUN 10 (9-20) mg/dL Creatinine 0.91 (0.66-1.25) mg/dL Estimated GFR > 60 (>60) mL/min BUN/Creatinine Ratio 11.0 (6-22) Glucose 91 (70-100) mg/dL Calcium 8.9 (8.4-10.2) mg/dL Total Bilirubin 0.4 (0.2-1.3) mg/dL AST 38 (17-59) IU/L ALT 31 (<50) IU/L Alkaline Phosphatase 56 (38-126) U/L Total Creatine Kinase 79 (55-170) U/L CK-MB (CK-2) TNP CK-MB (CK-2) Rel Index TNP Troponin I < 0.012 (0.01-0.034) ng/mL NT-Pro-B Natriuret Pep (<125) pg/mL Total Protein 8.8 H (6.3-8.2) g/dL Albumin 4.3 (3.5-5.0) g/dL Globulin 4.5 H (1.7-4.1) g/dL Albumin/Globulin Ratio 1.0 (1.0-2.8) Lipase 62 (23-300) U/L Procalcitonin (<0.5) ng/mL SARS-CoV-2 (PCR) Negative (Negative) Imaging Data Chest x-ray: Radiologist's Impression: Launch?[place] [address] XRay Report Signed Patient: Kenan Dougherty MR#: [id number] : 1970 Acct:[id number] Age/Sex: 51 / M Date of Service: 07/20/21 Loc: ED Accession Number: [id number] ?? Procedure: XR chest 1V Ordering Provider: Lon Burgos D.O. PROCEDURE:? XR CHEST 1V ? INDICATIONS:? SOB, fatigue ? TECHNIQUE:? One view of the chest was acquired.? ? COMPARISON:? [facility], , XR CHEST 1V, 06/01/2021, 13:40. ? FINDINGS:? ? Surgical changes and devices:? None.? ? Lungs and pleura:? Lungs are clear.? No pleural effusions or pneumothorax.? ? Mediastinum:? Mediastinal contours appear normal.? Heart size is normal.? ? Bones and chest wall:? No suspicious bony lesions.? Overlying soft tissues a ppear unremarkable.? ? IMPRESSION:? No acute cardiopulmonary abnormalities or focal airspace disease. ? Dictated by: Servando Huynh M.D. on 07/20/2021 at 11:37 ? ? Approved by: Servando Huynh M.D. on 07/20/2021 at 11:38 ? MDM Narrative Medical decision making narrative: Multiple etiologies for patient's symptoms considered including: [Pneumonia versus CHF versus COVID versus a breathe media versus anemia versus electrolyte abnormality versus other Patient's symptoms improved over duration of stay with above-stated therapies. Findings and discharge diagnosis discussed with patient/family followed by verbalization of understanding Return precautions discussed with patient/family whom verbalize understanding. Discharge Plan Departure Patient Disposition: Home Clinical Impression: Dyspnea Instructions: DI for Shortness of Breath Activity Restrictions/Additional Instructions: *You have been diagnosed with [shortness of breath. As we discussed your history, physical exam, labs, chest x-ray and EKG are reassuring. There is no evidence of pneumonia, heart failure, blood clot or other serious diagnosis that would require is specific or immediate intervention *What to do: *Please continue to take your regular medications as directed. [ ] New medication prescriptions sent to your pharmacy: [ ] [ ] New medication written as a paper prescription [ x] No new medications given *Please follow up with your primary care provider in 2-3 days, call for an appointment. Let them know you were seen in the Emergency Department and that we ask that you be seen in follow up. We will electronically transmit a record of today's note if your PCP is in our system *If you do not have a primary care provider please contact the [facility] Resource line at [phone]. They will ask some questions about your medical history and help get you set up with a doctor in the community. *Return to Emergency Department if you should have any new, worsening or concerning symptoms, such as [fever greater than 101 F, shaking chills, worsening pain, persistent vomiting or other bothersome symptoms] Prescriptions: No Action ibuprofen 200 mg Tablet 400 mg PO Q6H 0RF hydromorphone 2 mg Tablet 2 mg PO Q6HR PRN (Reason: pain) Qty: 20 0RF Referrals: Silvina Cartwright MD [Primary Care Provider] -
--- NOTE | 2021-07-20 10:53 | DI.RAD.S_ITS ---
PROCEDURE: XR CHEST 1V INDICATIONS: SOB, fatigue TECHNIQUE: One view of the chest was acquired. COMPARISON: [facility], CR, XR CHEST 1V, 06/01/2021, 13:40. FINDINGS: Surgical changes and devices: None. Lungs and pleura: Lungs are clear. No pleural effusions or pneumothorax. Mediastinum: Mediastinal contours appear normal. Heart size is normal. Bones and chest wall: No suspicious bony lesions. Overlying soft tissues appear unremarkable. IMPRESSION: No acute cardiopulmonary abnormalities or focal airspace disease. Dictated by: Servando Huynh M.D. on 07/20/2021 at 11:37 Approved by: Servando Huynh M.D. on 07/20/2021 at 11:38
[2021-07-20] MEDS: SODIUM CHLORIDE 0.9% 1,000 ML 150 ML IV (11:33)
[2021-07-20 11:50] VITALS: PULSE 84; RESP 20; O2SAT 96
[2021-07-20 11:56] LABS: Add Manual Diff / Slide Review NO; Basophils Absolute Auto 0 /uL (0-100); Basophils Percent Auto 0.6 % (0-2); Eosinophils Absolute Auto 400 /uL (0-450); Eosinophils Percent Auto 5.2 % (2-4); Hematocrit 43.8 % (41-53); Hemoglobin 14.3 g/dL (13.5-17.5); Lymphocytes Absolute Auto 2200 /uL (1100-4500); Lymphocytes Percent Auto 29.5 % (25-40); Mean Corpuscular HGB Conc 32.6 % (30-36); Mean Corpuscular Hemoglobin 26.8 PG (26-34); Mean Corpuscular Volume 82.3 fL (80-100); Monocytes Absolute Auto 1000 /uL (0-900); Monocytes Percent Auto 12.9 % (3-14); Neutrophils Absolute Auto 3800 /uL (1500-7000); Neutrophils Percent Auto 51.8 % (50-75); Platelet Count 281 X10^3/uL (150-400); Red Blood Cell Count 5.32 X10^6/uL (4.5-5.9); Red Cell Distribution Width 15.9 % (11.6-14.8); White Blood Cell Count 7.4 X10^3/uL (4.5-11.0)
[2021-07-20 12:00] VITALS: PULSE 84; RESP 21; O2SAT 95
[2021-07-20 12:01] VITALS: BP 144/75; PULSE 83; RESP 23; O2SAT 93
[2021-07-20 12:10] LABS: Alanine Aminotransferase 31 IU/L (<50); Albumin 4.3 g/dL (3.5-5.0); Alkaline Phosphatase 56 U/L (38-126); Aspartate Aminotransferase 38 IU/L (17-59); Bilirubin Total 0.4 mg/dL (0.2-1.3); Blood Urea Nitrogen 10 mg/dL (9-20); Calcium 8.9 mg/dL (8.4-10.2); Carbon Dioxide 29 mmol/L (22-32); Chloride 107 mmol/L (98-107); Creatine Kinase 79 U/L (55-170); Estimated Glomerular Filt Rate > 60 mL/min (>60); Globulin 4.5 g/dL (1.7-4.1); Glucose 91 mg/dL (70-100); HEMOLYSIS < 15 (0-50); Lipase 62 U/L (23-300); Potassium 4.2 mmol/L (3.4-5.1); Sodium 141 mmol/L (137-145); Total Protein 8.8 g/dL (6.3-8.2)
[2021-07-20 12:11] LABS: COVID19 -Nasal RAPID Negative (Negative); D Dimer < 200 ng/mL (<230)
[2021-07-20 12:20] LABS: NT-proBNP (BNP-Adult 18+) 25 pg/mL (<125)
[2021-07-20 12:22] LABS: Troponin I < 0.012 ng/mL (0.01-0.034)
[2021-07-20 12:27] LABS: Procalcitonin 0.05 ng/mL (<0.5)
[2021-07-20 13:18] VITALS: O2SAT 95
== END 2021-07-20 13:25 | disposition home or self-care (01) ==
PROVIDERS: Emergency Provider Emergency Medicine; Family Provider Family Medicine; PCP Family Medicine
DX: R06.00 Dyspnea, unspecified (principal); Z20.822 Contact with and (suspected) exposure to COVID-19
CPT/HCPCS: 36415; 71045; 80053; 82550; 83690; 83880; 84145; 84484; 85025; 85379; 87635; 93005; 99284; C9803

== ENCOUNTER 2022-05-18 11:31 | Inpatient (IN) | payer OTHER, SELFPAY ==
[2021-06-13 21:49] VITALS: BMI 56.2
[2022-05-18] VITALS (14 sets, daily range): BP systolic 128–156; BP diastolic 60–79; PULSE 93–116; RESP 17–24; TEMP 36.6–38.1; O2SAT 91–98; BMI 58.0; BMI 58.1
--- NOTE | 2022-05-18 11:35 | DI.RAD.S_ITS ---
PROCEDURE: XR CHEST 1V INDICATIONS: chest pain TECHNIQUE: One view of the chest was acquired. COMPARISON: [facility], CR, XR CHEST 1V, 07/20/2021, 11:19. FINDINGS: Surgical changes and devices: None. Lungs and pleura: Lungs are clear. No pleural effusions or pneumothorax. Mediastinum: Mediastinal contours appear normal. Heart size is enlarged. Bones and chest wall: No suspicious bony lesions. Overlying soft tissues appear unremarkable. IMPRESSION: No acute cardiopulmonary pathology. Dictated by: Tomás Poon M.D. on 05/18/2022 at 11:59 Approved by: Tomás Poon M.D. on 05/18/2022 at 12:00
[2022-05-18 11:45] LABS: Add Manual Diff / Slide Review NO; Basophils Absolute Auto 100 /uL (0-100); Basophils Percent Auto 0.5 % (0-2); Eosinophils Absolute Auto 300 /uL (0-450); Eosinophils Percent Auto 2.2 % (2-4); Hematocrit 47.9 % (41-53); Hemoglobin 15.6 g/dL (13.5-17.5); Lymphocytes Absolute Auto 1600 /uL (1100-4500); Lymphocytes Percent Auto 12.8 % (25-40); Mean Corpuscular HGB Conc 32.6 % (30-36); Mean Corpuscular Hemoglobin 26.5 PG (26-34); Mean Corpuscular Volume 81.2 fL (80-100); Monocytes Absolute Auto 900 /uL (0-900); Monocytes Percent Auto 6.9 % (3-14); Neutrophils Absolute Auto 9500 /uL (1500-7000); Neutrophils Percent Auto 77.6 % (50-75); Platelet Count 263 X10^3/uL (150-400); Red Blood Cell Count 5.89 X10^6/uL (4.5-5.9); Red Cell Distribution Width 15.3 % (11.6-14.8); White Blood Cell Count 12.2 X10^3/uL (4.5-11.0)
--- NOTE | 2022-05-18 11:46 | ED.CHESTPAIN ---
HPI - Chest Pain General Chief Complaint: Chest Pain Stated Complaint: Chest Pressure Time Seen by Provider: 05/18/22 11:35 Source: patient and EMS Mode of arrival: EMS History of Present Illness HPI narrative: 52-year-old male former smoker with history of sleep apnea, BMI of 58 and prior episodes of chest pain presents by EMS for evaluation of chest pain that started just prior to his arrival. 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 Admittedly he states he did not sleep well, had not eaten anything this morning and had multiple cups of coffee on an empty stomach. At its most intense his pain was 6/10 and improved to 2 or 3/10 after EMS aspirin and nitro. Patient denies any obvious provocation or radiation of symptoms. He is nauseated but denies any unexplained diaphoresis. He is had no exertional symptoms and denies any recent exercise intolerance. He denies any recent medication or dietary change. He denies any recent travel, trauma, injury, history of blood clot or cancer. Related Data Home Medications Medication Instructions Recorded Confirmed No Known Home Medications 05/18/22 05/18/22 Allergies Allergy/AdvReac Type Severity Reaction Status Date / Time Sulfa (Sulfonamide Allergy Verified 05/18/22 11:39 Antibiotics) Review of Systems Review of Systems Narrative: GENERAL: See HPI HEENT: Denies sinus pain, ear pain, sore throat, difficulty swallowing, dizziness. RESPIRATORY: Denies dyspnea, cough, wheezing, hemoptysis, sputum. CARDIOVASCULAR: See HPI GASTROINTESTINAL: See HPI : Denies dysuria, frequency, incontinence, hematuria, urinary retention. MUSCULOSKELETAL: denies weakness, joint pain, or bony pain SKIN: Denies rash, skin lesions, or other NEUROLOGIC: Denies weakness, headache, numbness, change in speech, confusion, seizures, incoordination. PSYCHIATRIC: No concerning psychosocial issues. 12 point review of systems is negative except for those stated above Patient History Medical History Cellulitis of left leg Chronic low back pain History of recent hospitalization Morbid obesity Morbid obesity DAVON (obstructive sleep apnea) Surgical History H/O laceration repair Family History Father Diabetes mellitus Cancer Mother Healthy adult Asthma Social History household members: none Smoking Status: Former smoker alcohol intake: current Smoking Status: Former smoker alcohol intake frequency: holidays/special occasions only Substance Use Type: does not use Exam Narrative Exam Narrative: GENERAL: [52] year old patient appears stated age. Well-developed patient, in mild distress. HEAD: Atraumatic. Normocephalic. EYES: Pupils equal round and reactive. Extraocular motions intact. No scleral icterus. No injection or drainage. ENT: Nose without bleeding, purulent drainage. Throat without erythema, tonsillar hypertrophy or exudate. Airway patent. NECK: Trachea midline. Non tender CARDIOVASCULAR: Regular rate and rhythm without murmurs, gallops, or rubs. RESPIRATORY: Clear to auscultation. Breath sounds equal bilaterally. No wheezes, rales, or rhonchi. GASTROINTESTINAL: Abdomen soft, minimal tenderness in epigastrium, nondistended. EXTREMITIES: No edema or joint tenderness. BACK: Nontender without deformity or crepitance. No flank tenderness. NEURO: AOx3. SKIN: No rash or erythema of visible areas Initial Vital Signs Initial Vital Signs: Vital Signs Temperature 98.1 F 05/18/22 11:32 Pulse Rate 95 H 05/18/22 11:32 Respiratory Rate 17 05/18/22 11:32 Blood Pressure 156/79 H 05/18/22 11:32 Pulse Oximetry 94 05/18/22 11:32 Oxygen Delivery Method 05/18/22 11:32 Course Orders Ordered: Acetaminophen (Acetaminophen 325 Mg Tablet) 650 mg PO Q6H PRN PRN Reason: Fever/Mild Pain (1-3) Last Admin: 05/18/22 22:47 Dose: 650 mg Documented By: MS Al Hydrox/Mg Hydrox/Simethicone (Mag Hydrox/Alum/Simeth 30 Ml Udc) 30 ml PO Q6HR PRN PRN Reason: Dyspepsia Aspirin (Aspirin Ec 325 Mg Tablet) 325 mg PO DAILY [facility] Enoxaparin Sodium (Enoxaparin 40 Mg/0.4 Ml Syringe) 40 mg SUBCUT DAILY [facility] Sodium Chloride (Normal Saline 0.9%) 1,000 mls @ 150 mls/hr IV CONT NAMITA Last Infusion: 05/18/22 18:25 Dose: 0 mls/hr Documented By: Admin: 05/18/22 12:08 Dose: 150 mls/hr Documented By: ANDREW(2) Vancomycin HCl/Dextrose (Vancomycin) 2,000 mg in 400 mls @ 200 mls/hr IV NOW [facility] Last Admin: 05/19/22 04:47 Dose: 200 mls/hr Documented By: MS Vancomycin HCl/Dextrose (Vancomycin) 1,500 mg in 300 mls @ 200 mls/hr IV Q8H [facility] Loperamide HCl (Loperamide 2 Mg Capsule) 4 mg PO PRN PRN PRN Reason: Diarrhea Last Admin: 05/18/22 22:42 Dose: 4 mg Documented By: MS Morphine Sulfate (Morphine 2 Mg/Ml Inj) 2 mg IV Q5MIN PRN PRN Reason: Chest Pain Naloxone HCl (Naloxone 0.4 Mg/Ml Vial) 0.2 mg IV Q2MIN PRN PRN Reason: Opiate Reversal Nitroglycerin (Nitroglycerin 0.4 Mg Sl Tab) 0.4 mg SL [id number] PRN PRN Reason: Chest Pain Ondansetron HCl (Ondansetron 4 Mg/2 Ml Inj) 4 mg IV Q4HR PRN PRN Reason: Nausea And Vomiting Vancomycin HCl (Vancomycin Per Pharmacy) 1 request MISC NOW ONE Stop: 05/19/22 03:06 Discontinued Medications Al Hydrox/Mg Hydrox/Simethicone 20 ml/ Lidocaine HCl 15 ml 0 ml PO NOW ONE Stop: 05/18/22 11:48 Last Admin: 05/18/22 12:08 Dose: 20 ml Documented By: ANDREW(2) Metoclopramide HCl (Metoclopramide 10 Mg/2 Ml Inj) 10 mg IV NOW ONE Stop: 05/18/22 15:46 Last Admin: 05/18/22 16:00 Dose: 10 mg Documented By: ANDREW(2) Ondansetron HCl (Ondansetron 4 Mg/2 Ml Inj) 4 mg IV NOW ONE Stop: 05/18/22 13:09 Last Admin: 05/18/22 13:14 Dose: 4 mg Documented By: ANDREW(2) Pantoprazole Sodium (Pantoprazole 40 Mg Vial) 40 mg IV NOW ONE Stop: 05/18/22 11:48 Last Admin: 05/18/22 12:08 Dose: 40 mg Documented By: ANDREW(2) Reevaluation(s) Reevaluation #1: Patient doing much better for a period of time, however his nausea has come back and he vomited Time: 15:48 Vital Signs Vital signs: Vital Signs - 8 hr 05/18/22 11:32 05/18/22 13:06 05/18/22 14:28 Temperature 98.1 F 97.8 F Pulse Rate 95 H 93 H Respiratory Rate 17 Blood Pressure 156/79 H Pulse Oximetry 94 98 Oxygen Delivery Method Room Air Oxygen Flow Rate 05/18/22 14:30 05/18/22 15:00 05/18/22 15:30 Temperature Pulse Rate 94 H 96 H 97 H Respiratory Rate Blood Pressure Pulse Oximetry 98 93 95 Oxygen Delivery Method Nasal Cannula Oxygen Flow Rate 2 05/18/22 16:00 05/18/22 16:30 05/18/22 17:00 Temperature Pulse Rate 103 H 109 H 107 H Respiratory Rate 23 24 21 Blood Pressure Pulse Oximetry 91 91 96 Oxygen Delivery Method Nasal Cannula Nasal Cannula Oxygen Flow Rate 2 2 05/18/22 17:01 05/18/22 17:01 05/18/22 17:30 Temperature Pulse Rate 105 H Respiratory Rate 20 Blood Pressure 135/63 133/60 Pulse Oximetry 94 Oxygen Delivery Method Nasal Cannula Oxygen Flow Rate 2 05/18/22 17:30 Temperature Pulse Rate 112 H Respiratory Rate 17 Blood Pressure Pulse Oximetry 92 Oxygen Delivery Method Nasal Cannula Oxygen Flow Rate 2 MDM - Chest Pain Lab Data 05/18/22 11:40 05/18/22 11:40 Labs: Lab Results 05/18/22 05/18/22 05/18/22 Range/Units 11:35 11:40 11:40 WBC 12.2 H (4.5-11.0) X10^3/uL RBC 5.89 (4.5-5.9) X10^6/uL Hgb 15.6 (13.5-17.5) g/dL Hct 47.9 (41-53) % MCV 81.2 (80-100) fL MCH 26.5 (26-34) PG MCHC 32.6 (30-36) % RDW 15.3 H (11.6-14.8) % Plt Count 263 (150-400) X10^3/uL Neut % (Auto) 77.6 H (50-75) % Lymph % (Auto) 12.8 L (25-40) % [place] % (Auto) 6.9 (3-14) % Eos % (Auto) 2.2 (2-4) % Baso % (Auto) 0.5 (0-2) % Neut # (Auto) 9500 H (4971-7884) /uL Lymph # (Auto) 1600 (3320-4632) /uL [place] # (Auto) 900 (0-900) /uL Eos # (Auto) 300 (0-450) /uL Baso # (Auto) 100 (0-100) /uL ESR 1 (0-15) MM/HR PT 11.8 (10.1-12.7) SECONDS INR 1.0 (0.9-1.3) D-Dimer 552 H (<500) ng/ml ABG pH (7.35-7.45) ABG pCO2 (35-45) mmHg ABG pO2 (80-100) mmHg ABG HCO3 (23-27) mmol/L ABG Total CO2 (23-27) mmol/L ABG O2 Saturation (95-100) % ABG Base Excess (-2-3) mmol/L FiO2 Sodium (137-145) mmol/L Potassium (3.4-5.1) mmol/L Chloride (98-107) mmol/L Carbon Dioxide (22-32) mmol/L BUN (9-20) mg/dL Creatinine (0.66-1.25) mg/dL Estimated GFR (>60) mL/min BUN/Creatinine Ratio (6-22) Glucose (70-100) mg/dL Hemoglobin A1c (4.0-6.0) % Calcium (8.4-10.2) mg/dL Magnesium (1.6-2.3) mg/dL Total Bilirubin (0.2-1.3) mg/dL AST (17-59) IU/L ALT (<50) IU/L Alkaline Phosphatase (38-126) U/L Total Creatine Kinase (55-170) U/L CK-MB (CK-2) (<2.37) ng/mL CK-MB (CK-2) Rel Index (1.5-5.0) % Troponin I (0.01-0.034) ng/mL C-Reactive Protein (<1.0) mg/dL NT-Pro-B Natriuret Pep (<125) pg/mL Total Protein (6.3-8.2) g/dL Albumin (3.5-5.0) g/dL Globulin (1.7-4.1) g/dL Albumin/Globulin Ratio (1.0-2.8) Lipase (23-300) U/L Procalcitonin (<0.5) ng/mL TSH (0.47-4.68) uIU/mL U Opiates 300ng/mL cut (Negative) Ur Oxycodone Screen (Negative) Urine Methadone Screen (Negative) Ur Barbiturates Screen (Negative) U Tricyclic Antidepress (Negative) Ur Phencyclidine Scrn (Negative) Ur Amphetamines Screen (Negative) U Methamphetamines Scrn (Negative) Ur MDMA Scrn (Ecstasy) (Negative) U Benzodiazepines Scrn (Negative) Urine Cocaine Screen (Negative) U Marijuana (THC) Screen (Negative) SARS-CoV-2 (PCR) Negative (Negative) Influenza A (RT-PCR) Flu a negative (NEGATIVE) Influenza B (RT-PCR) Flu b negative (NEGATIVE) RSV (PCR) Negative (Negative) 05/18/22 05/18/22 05/18/22 Range/Units 11:40 11:40 11:40 WBC (4.5-11.0) X10^3/uL RBC (4.5-5.9) X10^6/uL Hgb (13.5-17.5) g/dL Hct (41-53) % MCV (80-100) fL MCH (26-34) PG MCHC (30-36) % RDW (11.6-14.8) % Plt Count (150-400) X10^3/uL Neut % (Auto) (50-75) % Lymph % (Auto) (25-40) % [place] % (Auto) (3-14) % Eos % (Auto) (2-4) % Baso % (Auto) (0-2) % Neut # (Auto) (4909-5588) /uL Lymph # (Auto) (7646-7936) /uL [place] # (Auto) (0-900) /uL Eos # (Auto) (0-450) /uL Baso # (Auto) (0-100) /uL ESR (0-15) MM/HR PT (10.1-12.7) SECONDS INR (0.9-1.3) D-Dimer (<500) ng/ml ABG pH (7.35-7.45) ABG pCO2 (35-45) mmHg ABG pO2 (80-100) mmHg ABG HCO3 (23-27) mmol/L ABG Total CO2 (23-27) mmol/L ABG O2 Saturation (95-100) % ABG Base Excess (-2-3) mmol/L FiO2 Sodium 141 (137-145) mmol/L Potassium 4.3 (3.4-5.1) mmol/L Chloride 102 (98-107) mmol/L Carbon Dioxide 31 (22-32) mmol/L BUN 12 (9-20) mg/dL Creatinine 0.97 (0.66-1.25) mg/dL Estimated GFR > 60 (>60) mL/min BUN/Creatinine Ratio 12.4 (6-22) Glucose 103 H (70-100) mg/dL Hemoglobin A1c 6.3 H (4.0-6.0) % Calcium 9.1 (8.4-10.2) mg/dL Magnesium (1.6-2.3) mg/dL Total Bilirubin 0.4 (0.2-1.3) mg/dL AST 37 (17-59) IU/L ALT 46 (<50) IU/L Alkaline Phosphatase 68 (38-126) U/L Total Creatine Kinase 194 H (55-170) U/L CK-MB (CK-2) 0.82 (<2.37) ng/mL CK-MB (CK-2) Rel Index 0.4 L (1.5-5.0) % Troponin I < 0.012 (0.01-0.034) ng/mL C-Reactive Protein 0.8 (<1.0) mg/dL NT-Pro-B Natriuret Pep 29 (<125) pg/mL Total Protein 8.7 H (6.3-8.2) g/dL Albumin 4.5 (3.5-5.0) g/dL Globulin 4.2 H (1.7-4.1) g/dL Albumin/Globulin Ratio 1.1 (1.0-2.8) Lipase 80 (23-300) U/L Procalcitonin 0.05 (<0.5) ng/mL TSH 0.95 (0.47-4.68) uIU/mL U Opiates 300ng/mL cut (Negative) Ur Oxycodone Screen (Negative) Urine Methadone Screen (Negative) Ur Barbiturates Screen (Negative) U Tricyclic Antidepress (Negative) Ur Phencyclidine Scrn (Negative) Ur Amphetamines Screen (Negative) U Methamphetamines Scrn (Negative) Ur MDMA Scrn (Ecstasy) (Negative) U Benzodiazepines Scrn (Negative) Urine Cocaine Screen (Negative) U Marijuana (THC) Screen (Negative) SARS-CoV-2 (PCR) (Negative) Influenza A (RT-PCR) (NEGATIVE) Influenza B (RT-PCR) (NEGATIVE) RSV (PCR) (Negative) 05/18/22 05/18/22 05/18/22 Range/Units 14:28 14:28 16:06 WBC (4.5-11.0) X10^3/uL RBC (4.5-5.9) X10^6/uL Hgb (13.5-17.5) g/dL Hct (41-53) % MCV (80-100) fL MCH (26-34) PG MCHC (30-36) % RDW (11.6-14.8) % Plt Count (150-400) X10^3/uL Neut % (Auto) (50-75) % Lymph % (Auto) (25-40) % [place] % (Auto) (3-14) % Eos % (Auto) (2-4) % Baso % (Auto) (0-2) % Neut # (Auto) (2320-0894) /uL Lymph # (Auto) (9937-7056) /uL [place] # (Auto) (0-900) /uL Eos # (Auto) (0-450) /uL Baso # (Auto) (0-100) /uL ESR (0-15) MM/HR PT (10.1-12.7) SECONDS INR (0.9-1.3) D-Dimer (<500) ng/ml ABG pH (7.35-7.45) ABG pCO2 (35-45) mmHg ABG pO2 (80-100) mmHg ABG HCO3 (23-27) mmol/L ABG Total CO2 (23-27) mmol/L ABG O2 Saturation (95-100) % ABG Base Excess (-2-3) mmol/L FiO2 Sodium (137-145) mmol/L Potassium (3.4-5.1) mmol/L Chloride (98-107) mmol/L Carbon Dioxide (22-32) mmol/L BUN (9-20) mg/dL Creatinine (0.66-1.25) mg/dL Estimated GFR (>60) mL/min BUN/Creatinine Ratio (6-22) Glucose (70-100) mg/dL Hemoglobin A1c (4.0-6.0) % Calcium (8.4-10.2) mg/dL Magnesium 1.9 (1.6-2.3) mg/dL Total Bilirubin (0.2-1.3) mg/dL AST (17-59) IU/L ALT (<50) IU/L Alkaline Phosphatase (38-126) U/L Total Creatine Kinase (55-170) U/L CK-MB (CK-2) (<2.37) ng/mL CK-MB (CK-2) Rel Index (1.5-5.0) % Troponin I < 0.012 (0.01-0.034) ng/mL C-Reactive Protein (<1.0) mg/dL NT-Pro-B Natriuret Pep (<125) pg/mL Total Protein (6.3-8.2) g/dL Albumin (3.5-5.0) g/dL Globulin (1.7-4.1) g/dL Albumin/Globulin Ratio (1.0-2.8) Lipase (23-300) U/L Procalcitonin (<0.5) ng/mL TSH (0.47-4.68) uIU/mL U Opiates 300ng/mL cut Negative (Negative) Ur Oxycodone Screen Negative (Negative) Urine Methadone Screen Negative (Negative) Ur Barbiturates Screen Negative (Negative) U Tricyclic Antidepress Negative (Negative) Ur Phencyclidine Scrn Negative (Negative) Ur Amphetamines Screen Negative (Negative) U Methamphetamines Scrn Negative (Negative) Ur MDMA Scrn (Ecstasy) Negative (Negative) U Benzodiazepines Scrn Negative (Negative) Urine Cocaine Screen Negative (Negative) U Marijuana (THC) Screen Negative (Negative) SARS-CoV-2 (PCR) (Negative) Influenza A (RT-PCR) (NEGATIVE) Influenza B (RT-PCR) (NEGATIVE) RSV (PCR) (Negative) 05/18/22 Range/Units 17:22 WBC (4.5-11.0) X10^3/uL RBC (4.5-5.9) X10^6/uL Hgb (13.5-17.5) g/dL Hct (41-53) % MCV (80-100) fL MCH (26-34) PG MCHC (30-36) % RDW (11.6-14.8) % Plt Count (150-400) X10^3/uL Neut % (Auto) (50-75) % Lymph % (Auto) (25-40) % [place] % (Auto) (3-14) % Eos % (Auto) (2-4) % Baso % (Auto) (0-2) % Neut # (Auto) (3134-2107) /uL Lymph # (Auto) (0941-7083) /uL [place] # (Auto) (0-900) /uL Eos # (Auto) (0-450) /uL Baso # (Auto) (0-100) /uL ESR (0-15) MM/HR PT (10.1-12.7) SECONDS INR (0.9-1.3) D-Dimer (<500) ng/ml ABG pH 7.37 (7.35-7.45) ABG pCO2 48.7 H (35-45) mmHg ABG pO2 65 L (80-100) mmHg ABG HCO3 28 H (23-27) mmol/L ABG Total CO2 29 H (23-27) mmol/L ABG O2 Saturation 91 L (95-100) % ABG Base Excess 3.0 (-2-3) mmol/L FiO2 28 Sodium (137-145) mmol/L Potassium (3.4-5.1) mmol/L Chloride (98-107) mmol/L Carbon Dioxide (22-32) mmol/L BUN (9-20) mg/dL Creatinine (0.66-1.25) mg/dL Estimated GFR (>60) mL/min BUN/Creatinine Ratio (6-22) Glucose (70-100) mg/dL Hemoglobin A1c (4.0-6.0) % Calcium (8.4-10.2) mg/dL Magnesium (1.6-2.3) mg/dL Total Bilirubin (0.2-1.3) mg/dL AST (17-59) IU/L ALT (<50) IU/L Alkaline Phosphatase (38-126) U/L Total Creatine Kinase (55-170) U/L CK-MB (CK-2) (<2.37) ng/mL CK-MB (CK-2) Rel Index (1.5-5.0) % Troponin I (0.01-0.034) ng/mL C-Reactive Protein (<1.0) mg/dL NT-Pro-B Natriuret Pep (<125) pg/mL Total Protein (6.3-8.2) g/dL Albumin (3.5-5.0) g/dL Globulin (1.7-4.1) g/dL Albumin/Globulin Ratio (1.0-2.8) Lipase (23-300) U/L Procalcitonin (<0.5) ng/mL TSH (0.47-4.68) uIU/mL U Opiates 300ng/mL cut (Negative) Ur Oxycodone Screen (Negative) Urine Methadone Screen (Negative) Ur Barbiturates Screen (Negative) U Tricyclic Antidepress (Negative) Ur Phencyclidine Scrn (Negative) Ur Amphetamines Screen (Negative) U Methamphetamines Scrn (Negative) Ur MDMA Scrn (Ecstasy) (Negative) U Benzodiazepines Scrn (Negative) Urine Cocaine Screen (Negative) U Marijuana (THC) Screen (Negative) SARS-CoV-2 (PCR) (Negative) Influenza A (RT-PCR) (NEGATIVE) Influenza B (RT-PCR) (NEGATIVE) RSV (PCR) (Negative) Urine Dip Bedside Urine Glucose Negative Bedside Urine Bilirubin - Negative Bedside Urine Ketone - Negative Urine Specific [place] 1.015 Bedside Urine Occult Blood - Negative Bedside Urine pH 6.0 Bedside Urine Protein - Negative Bedside Urine Urobilinogen - Negative Bedside Urine Nitrite - Negative Bedside Urine Leukocytes - Negative Esterase MDM Narrative Medical decision making narrative: [52-year-old male developed chest pain, nausea, vomiting, shortness of breath and diaphoresis at service] Multiple etiologies for patient's symptoms considered including, but not limited to: [Cardiac ischemia, pulmonary embolism, gallbladder disease, peptic ulcer disease, pneumonia versus other] Prior Charts reviewed: Prior ED and other hospital notes reviewed Labs reviewed and interpreted by myself: No leukocytosis or left shift, D-dimer slightly above age corrected cutoff, CT angiogram pursued for pulmonary embolism, ABG notes PO2 of 65 on 2 L, LFTs, bilirubin and lipase within normal Imaging reviewed:Chest x-ray and CT angiogram without significant findings, abdominal ultrasound without obvious abnormalities Patient with a concerning story for chest pain with improvement with nitro though becomes increasingly short of breath and subsequently require supplemental oxygen, no pneumonia or pulmonary embolism noted on imaging, no opioids administered, he has persistent unexplained diaphoresis and nausea and vomiting. Patient requires hospitalization for treatment, stabilization and further workup Discharge Plan Departure Patient Disposition: Admitted as Observation Clinical Impression: Chest pain, Vomiting, Acute respiratory failure with hypoxemia Admit Date/Time: 05/18/22 17:56 Admit Provider: Anna Spivey
[2022-05-18 11:52] LABS: Prothrombin Time 11.8 SECONDS (10.1-12.7)
[2022-05-18 11:53] LABS: D Dimer 552 ng/ml (<500)
[2022-05-18 12:00] LABS: Alanine Aminotransferase 46 IU/L (<50); Albumin 4.5 g/dL (3.5-5.0); Albumin Globulin Ratio 1.1 (1.0-2.8); Alkaline Phosphatase 68 U/L (38-126); Aspartate Aminotransferase 37 IU/L (17-59); BUN Creatinine Ratio 12.4 (6-22); Bilirubin Total 0.4 mg/dL (0.2-1.3); Blood Urea Nitrogen 12 mg/dL (9-20); C-Reactive Protein Quant 0.8 mg/dL (<1.0); Calcium 9.1 mg/dL (8.4-10.2); Carbon Dioxide 31 mmol/L (22-32); Chloride 102 mmol/L (98-107); Creatine Kinase 194 U/L (55-170); Estimated Glomerular Filt Rate > 60 mL/min (>60); Globulin 4.2 g/dL (1.7-4.1); Glucose 103 mg/dL (70-100); HEMOLYSIS < 15 (0-50); Lipase 80 U/L (23-300); Potassium 4.3 mmol/L (3.4-5.1); Sodium 141 mmol/L (137-145); Total Protein 8.7 g/dL (6.3-8.2)
[2022-05-18 12:08] LABS: Erythrocyte Sedimentation Rate 1 MM/HR (0-15)
[2022-05-18] MEDS: MAG HYDROX/ALUMINUM/SIMETH SUS 20 ML, LIDOCAINE VISCOUS 2% 15 ML PO (12:08)
[2022-05-18] MEDS: PANTOPRAZOLE 40 MG VIAL IV (12:08)
[2022-05-18] MEDS: SODIUM CHLORIDE 0.9% 1,000 ML 150 ML IV (12:08)
[2022-05-18 12:10] LABS: NT-proBNP (BNP-Adult 18+) 29 pg/mL (<125); Troponin I < 0.012 ng/mL (0.01-0.034)
[2022-05-18 12:13] LABS: CKMB % Relative Index 0.4 % (1.5-5.0); Creatine Kinase MB 0.82 ng/mL (<2.37)
[2022-05-18 12:14] LABS: Procalcitonin 0.05 ng/mL (<0.5)
[2022-05-18 12:22] LABS: COVID-19 CEPHEID 4-PLEX PCR Negative (Negative); Influenza A - CEPHEID Flu A NEGATIVE (NEGATIVE); Influenza B - CEPHEID Flu B NEGATIVE (NEGATIVE); Respiratory Syncytial Virus Negative (Negative)
--- NOTE | 2022-05-18 12:50 | DI.CT.S_ITS ---
PROCEDURE: CT ANGIO CHEST PE PROTOCOL INDICATIONS: chest pain, SOB, dimer above cutoff TECHNIQUE: After the administration of intravenous contrast, 2 mm thick sections acquired from the pulmonary apices to the posterior costophrenic angles. 3-dimensional maximum intensity projection (MIP) coronal and sagittal reformats were then acquired through the thorax. For radiation dose reduction, the following was used: automated exposure control, adjustment of mA and/or kV according to patient size. COMPARISON: None. FINDINGS: Image quality: Excellent. Pulmonary arteries: Pulmonary arteries are normal in size, and demonstrate no intraluminal filling defects to suggest central pulmonary embolism. Lungs and pleura: Lungs are clear. No pleural effusions or pneumothorax. Central and peripheral airways are patent. Mediastinum: Heart size is normal, without pericardial effusion. No mediastinal or hilar adenopathy. Thoracic aorta is normal in caliber and enhancement. Esophagus is normal in caliber, without hiatal hernia. Bones and chest wall: No suspicious bony lesions. Ribs and thoracic spine appear intact throughout. Thyroid gland is unremarkable as visualized. No axillary or supraclavicular adenopathy. Abdomen: Visualized upper abdominal solid organs appear normal in the early arterial phase of enhancement. IMPRESSION: 1. No evidence of acute pulmonary emboli. 2. No evidence acute pulmonary process. Dictated by: John Kohler M.D. on 05/18/2022 at 13:43 Approved by: John Kohler M.D. on 05/18/2022 at 13:44
[2022-05-18] MEDS: ONDANSETRON 4 MG/2 ML INJ IV (13:14)
[2022-05-18 15:02] LABS: Troponin I < 0.012 ng/mL (0.01-0.034)
--- NOTE | 2022-05-18 15:49 | DI.US.S_ITS ---
PROCEDURE: US ABDOMEN LIMITED INDICATIONS: EPIGASTRIC PAIN. NAUSEA AND VOMITING TECHNIQUE: Real-time focused scanning was performed of the abdomen, with image documentation. COMPARISON: [facility], CT, CT ABDOMEN PELVIS W CON, 06/01/2021, 17:16. [facility], CR, XR CHEST 1V, 05/18/2022, 11:44. [facility], CT, CT ANGIO CHEST PE PROTOCOL, 05/18/2022, 13:09. FINDINGS: The liver demonstrates enlarged size. The liver demonstrates generalized moderately increased echogenicity. This decreases ultrasound sensitivity for detection of hepatic masses. The main portal vein appears normal, yet is not well seen. No findings of gallstones or sludge are seen. The gallbladder wall is not thickened, measuring 3 mm or less. No specific pericholecystic fluid is seen. The sonographic Overton sign is negative. The biliary tree is not well seen. The pancreas is not well seen. This study is limited by body habitus and bowel gas. IMPRESSION: Limited study demonstrating an enlarged fatty liver. Normal appearing gallbladder. Dictated by: Braeden Esposito M.D. on 05/18/2022 at 15:52 Approved by: Braeden Esposito M.D. on 05/18/2022 at 15:54
[2022-05-18] MEDS: METOCLOPRAMIDE 10 MG/2 ML INJ IV (16:00)
[2022-05-18 17:27] LABS: UR Morphine/Opiate cutoff 300 Negative (Negative); Ur Creatinine Normal (Normal); Ur Specific Gravity Normal (Normal); Urine Amphetamines Negative (Negative); Urine Barbiturates Negative (Negative); Urine Benzodiazepines Negative (Negative); Urine Cocaine Negative (Negative); Urine MDMA Negative (Negative); Urine Methadone Negative (Negative); Urine Methamphetamines Negative (Negative); Urine Oxycodone Negative (Negative); Urine Phencyclidine Negative (Negative); Urine Tetrahydrocannabinol Negative (Negative); Urine Tricyclic Antidepressant Negative (Negative); Urine pH Normal (Normal)
[2022-05-18 17:36] LABS: PCO2 ABG 48.7 mmHg (35-45); PO2 ABG 65 mmHg (80-100)
[2022-05-18 17:37] LABS: Fractionated Inspired Oxygen 28; HCO3 ABG 28 mmol/L (23-27); Oxygen Saturation ABG 91 % (95-100); TCO2 ABG 29 mmol/L (23-27)
[2022-05-18 17:38] LABS: pH ABG 7.37 (7.35-7.45)
[2022-05-18 21:04] LABS: Magnesium 1.9 mg/dL (1.6-2.3)
--- NOTE | 2022-05-18 22:00 | PM.HP.1 ---
History of Present Illness History of Present Illness Date Patient Seen: 05/18/22 Time Patient Seen: 20:05 Chief complaint: Chest Pressure Narrative: Kenan Dougherty 52-year-old male with history of sleep apnea/CPAP,, cellulitis, morbid obesity who presented to the ED via EMS for evaluation of chest pain that started just prior to his arrival.? 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 Admittedly he states he did not sleep well, had not eaten anything this morning and had multiple cups of coffee on an empty stomach.? At its most intense his pain was 6/10 and improved to 2 or 3/10 after EMS aspirin and nitro.? Patient denies any obvious provocation or radiation of symptoms.? He is nauseated but denies any unexplained diaphoresis.? He is had no exertional symptoms and denies any recent exercise intolerance.? He denies any recent medication or dietary change.? He denies any recent travel, trauma, injury, history of blood clot or cancer. Patient experienced vomiting in the ED, and has since been medicated for both pain and nausea. On admit patient can barely wake/stay awake long enough to answer my questions- denies chest pain, shortness in breath, headache, changes in vision, difficulty swallowing, speech impairment, weakness, numbness, tingling, difficulty with ambulation, recent falls, head injury, LOC, fever, body aches, chills, cough, recent exposure to illness, abdominal pain, nausea, further vomiting, urinary incontinence/retention, dysuria, frequency, urgency, hematuria, bowel changes, constipation, incontinence, melena, rashes, recent changes to medication, illness, injury, or trauma. At admit temp 100.6?, 128/72, slightly tachycardic 108, 20, patient is satting 96-97% on 2 L nasal cannula. Turned off the oxygen-02 sat%-drop to 89% while sleeping on rm air in no distress. WBC 12.2, with a slight left shift neut 9500. CRP, ESR, lipase, BNP, procalcitonin, tox screen, COVID, influenza a/B, and RSV are all negative. ABGs: PH 7.37, pCO2 48.7, PO2 65, HC03 28, TCO2 29, O2 sat 91%, BE 3.0, FiO2 28. Chest CTA negative for PE or acute process, abdominal ultrasound demonstrate enlarged fatty liver, chest x-ray is negative for any acute cardiopulmonary process. EKG sinus rhythm 93 occasional PVCs, PVCs are new from last EKG on 07/20/2021 which I personally reviewed. Patient admitted for chest pain shortness breath, risk stratification, and neutrophilic leukocytosis. Patient History Medical History Cellulitis of left leg Chronic low back pain History of recent hospitalization Morbid obesity Morbid obesity DAVON (obstructive sleep apnea) Surgical History H/O laceration repair Family & Social History Family History Father Diabetes mellitus Cancer Mother Healthy adult Asthma Social History: household members none Prior Living Arrangements House Safety & Behavioral: Feels Safe in Current Yes Environment Been Physically Hurt or No Threatened By a Person Tobacco & Substance use: Smoking Status Former smoker alcohol intake current alcohol intake frequency holiday/special occasion Substance Use Type does not use Meds Home Medications and Allergies Home Medications Medication Instructions Recorded Confirmed Type No Known Home Medications 05/18/22 05/18/22 History Allergies Allergy/AdvReac Type Severity Reaction Status Date / Time Sulfa (Sulfonamide Allergy Verified 05/18/22 11:39 Antibiotics) Review of Systems Review of Systems Narrative: All 12 point systems reviewed with the patient and are negative except otherwise documented. Exam Vital Signs (past 8 hours): - 05/18/22 14:28 05/18/22 14:30 05/18/22 15:00 Temperature Pulse Rate 93 H 94 H 96 H Respiratory Rate Blood Pressure Pulse Oximetry 98 98 93 Oxygen Delivery Method Nasal Cannula Oxygen Flow Rate 2 05/18/22 15:30 05/18/22 16:00 05/18/22 16:30 Temperature Pulse Rate 97 H 103 H 109 H Respiratory Rate 23 24 Blood Pressure Pulse Oximetry 95 91 91 Oxygen Delivery Method Nasal Cannula Oxygen Flow Rate 2 05/18/22 17:00 05/18/22 17:01 05/18/22 17:01 Temperature Pulse Rate 107 H 105 H Respiratory Rate 21 20 Blood Pressure 135/63 Pulse Oximetry 96 94 Oxygen Delivery Method Nasal Cannula Nasal Cannula Oxygen Flow Rate 2 2 05/18/22 17:30 05/18/22 17:30 05/18/22 18:00 Temperature Pulse Rate 112 H 116 H Respiratory Rate 17 19 Blood Pressure 133/60 Pulse Oximetry 92 94 Oxygen Delivery Method Nasal Cannula Nasal Cannula Oxygen Flow Rate 2 2 05/18/22 18:43 05/18/22 18:52 Temperature 100.6 F H Pulse Rate 108 H Respiratory Rate 20 Blood Pressure 128/72 Pulse Oximetry 97 Oxygen Delivery Method Nasal Cannula Oxygen Flow Rate 2 Oxygen Delivery Method Nasal Cannula Oxygen Flow Rate 2 Narrative Exam Narrative: GENERAL: [52] year old patient appears stated age, morbidly obese, appears quite sedated secondary to pain medication from ED HEAD: Atraumatic. Normocephalic. Mucous membranes are moist. EYES: Pupils equal round and reactive. Extraocular motions intact. No scleral icterus. No injection or drainage. ENT: Nose without bleeding, purulent drainage. Throat without erythema, tonsillar hypertrophy or exudate. Airway patent. NECK: Trachea midline. Non tender CARDIOVASCULAR: Regular rate and rhythm without murmurs, gallops, or rubs. RESPIRATORY: Clear to auscultation in all lobes, slightly diminished in bilateral lower lobes, labored breathing during sleep.- pt refuses to wear CPAP GASTROINTESTINAL: Abdomen soft, nontender, nondistended, bowel sounds present in all 4 quadrants, no rebound tenderness, no CVA tenderness. EXTREMITIES: No edema or joint tenderness. Moves all extremities, intact radial and pedal pulses. BACK: Nontender without deformity or crepitance. No flank tenderness. NEURO: Patient is arousable orientated to person place and time, but is heavily sedated and falls asleep mid sentence secondary to pain medication in ED SKIN: No rash or erythema of visible areas, skin is moist patient appears slightly diaphoretic, no signs of cellulitis, infection or broken skin. Objective Labs 05/18/22 11:40 05/18/22 11:40 Labs: Laboratory Results - last 24 hr 05/18/22 05/18/22 05/18/22 11:35 11:40 11:40 WBC 12.2 H RBC 5.89 Hgb 15.6 Hct 47.9 MCV 81.2 MCH 26.5 MCHC 32.6 RDW 15.3 H Plt Count 263 Neut % (Auto) 77.6 H Lymph % (Auto) 12.8 L Nicol[place] % (Auto) 6.9 Eos % (Auto) 2.2 Baso % (Auto) 0.5 Neut # (Auto) 9500 H Lymph # (Auto) 1600 [place] # (Auto) 900 Eos # (Auto) 300 Baso # (Auto) 100 ESR 1 PT 11.8 INR 1.0 D-Dimer 552 H ABG pH ABG pCO2 ABG pO2 ABG HCO3 ABG Total CO2 ABG O2 Saturation ABG Base Excess FiO2 Sodium Potassium Chloride Carbon Dioxide BUN Creatinine Estimated GFR BUN/Creatinine Ratio Glucose Calcium Magnesium Total Bilirubin AST ALT Alkaline Phosphatase Total Creatine Kinase CK-MB (CK-2) CK-MB (CK-2) Rel Index Troponin I C-Reactive Protein NT-Pro-B Natriuret Pep Total Protein Albumin Globulin Albumin/Globulin Ratio Lipase Procalcitonin U Opiates 300ng/mL cut Ur Oxycodone Screen Urine Methadone Screen Ur Barbiturates Screen U Tricyclic Antidepress Ur Phencyclidine Scrn Ur Amphetamines Screen U Methamphetamines Scrn Ur MDMA Scrn (Ecstasy) U Benzodiazepines Scrn Urine Cocaine Screen U Marijuana (THC) Screen SARS-CoV-2 (PCR) Negative Influenza A (RT-PCR) Flu a negative Influenza B (RT-PCR) Flu b negative RSV (PCR) Negative 05/18/22 05/18/22 05/18/22 11:40 14:28 14:28 WBC RBC Hgb Hct MCV MCH MCHC RDW Plt Count Neut % (Auto) Lymph % (Auto) Nicollet % (Auto) Eos % (Auto) Baso % (Auto) Neut # (Auto) Lymph # (Auto) Nicollet # (Auto) Eos # (Auto) Baso # (Auto) ESR PT INR D-Dimer ABG pH ABG pCO2 ABG pO2 ABG HCO3 ABG Total CO2 ABG O2 Saturation ABG Base Excess FiO2 Sodium 141 Potassium 4.3 Chloride 102 Carbon Dioxide 31 BUN 12 Creatinine 0.97 Estimated GFR > 60 BUN/Creatinine Ratio 12.4 Glucose 103 H Calcium 9.1 Magnesium 1.9 Total Bilirubin 0.4 AST 37 ALT 46 Alkaline Phosphatase 68 Total Creatine Kinase 194 H CK-MB (CK-2) 0.82 CK-MB (CK-2) Rel Index 0.4 L Troponin I < 0.012 < 0.012 C-Reactive Protein 0.8 NT-Pro-B Natriuret Pep 29 Total Protein 8.7 H Albumin 4.5 Globulin 4.2 H Albumin/Globulin Ratio 1.1 Lipase 80 Procalcitonin 0.05 U Opiates 300ng/mL cut Ur Oxycodone Screen Urine Methadone Screen Ur Barbiturates Screen U Tricyclic Antidepress Ur Phencyclidine Scrn Ur Amphetamines Screen U Methamphetamines Scrn Ur MDMA Scrn (Ecstasy) U Benzodiazepines Scrn Urine Cocaine Screen U Marijuana (THC) Screen SARS-CoV-2 (PCR) Influenza A (RT-PCR) Influenza B (RT-PCR) RSV (PCR) 05/18/22 05/18/22 16:06 17:22 WBC RBC Hgb Hct MCV MCH MCHC RDW Plt Count Neut % (Auto) Lymph % (Auto) Nicollet % (Auto) Eos % (Auto) Baso % (Auto) Neut # (Auto) Lymph # (Auto) Nicollet # (Auto) Eos # (Auto) Baso # (Auto) ESR PT INR D-Dimer ABG pH 7.37 ABG pCO2 48.7 H ABG pO2 65 L ABG HCO3 28 H ABG Total CO2 29 H ABG O2 Saturation 91 L ABG Base Excess 3.0 FiO2 28 Sodium Potassium Chloride Carbon Dioxide BUN Creatinine Estimated GFR BUN/Creatinine Ratio Glucose Calcium Magnesium Total Bilirubin AST ALT Alkaline Phosphatase Total Creatine Kinase CK-MB (CK-2) CK-MB (CK-2) Rel Index Troponin I C-Reactive Protein NT-Pro-B Natriuret Pep Total Protein Albumin Globulin Albumin/Globulin Ratio Lipase Procalcitonin U Opiates 300ng/mL cut Negative Ur Oxycodone Screen Negative Urine Methadone Screen Negative Ur Barbiturates Screen Negative U Tricyclic Antidepress Negative Ur Phencyclidine Scrn Negative Ur Amphetamines Screen Negative U Methamphetamines Scrn Negative Ur MDMA Scrn (Ecstasy) Negative U Benzodiazepines Scrn Negative Urine Cocaine Screen Negative U Marijuana (THC) Screen Negative SARS-CoV-2 (PCR) Influenza A (RT-PCR) Influenza B (RT-PCR) RSV (PCR) Assessment & Plan Assessment & Plan narrative: Kenan Dougherty 52-year-old male with history of sleep apnea/CPAP, cellulitis, morbid obesity who presented to the ED via EMS for evaluation of chest pain with SOB. Patient was hospitalized 06/02- 06/08/2021 for groin cellulitis, 06/13-06/17/2021 for left leg cellulitis. At the time of admit patient's symptoms have resolved, patient is being admitted for chest pain with shortness of breath risk stratification, and neutrophilic leukocytosis. 1. Chest pain, with shortness of breath, acute, present on admission-resolved -patient becomes short of breath with any sort of movement even rolling [id number] in the bed-this is likely due to the patient's morbid obesity. -96-97% on 2 L nasal cannula. Turned off the oxygen-02 sat% would drop to 89% while sleeping on rm air. -ABGs: PH 7.37, pCO2 48.7, PO2 65, HC03 28, TCO2 29, O2 sat 91%, BE 3.0, FiO2 28. -Chest CTA negative for PE or acute process, -chest x-ray is negative for any acute cardiopulmonary process. -EKG sinus rhythm 93 occasional PVCs, PVCs are new from last EKG on 07/20/2021 which I personally reviewed. -patient admitted under chest pain protocol: ASA, Lipitor -echocardiogram and NM stress test ordered due to patient's morbid obesity I do not believe he could tolerate a treadmill. -ordered lipid panel, A1c, TSH, repeat troponin in a.m. 2. Leukocytosis, neutrophilic, acute, present on admission-unknown etiology -mildly febrile, tachycardic, tachypneic. -HX of recurrent hospitalizations for cellulitis. -hospitalized 06/02- 06/08/2021 for scrotal cellulitis with lymphadenopathy, 06/13-06/17/2021 for left leg cellulitis -last positive culture 06/07/2021 Staphylococcus aureus -due to patient's history place him on vancomycin-also consider coverage beta-hemolytic Streptococcus and MRSA - Skin check thus far has not demonstrated any signs of cellulitis. -admit temp 100.6?, 128/72, slightly tachycardic 108, 20, 90% on Rm air- SOFA:1-does not meet sepsis criteria-will monitor for sepsis/septic shock. -Manage fever. Monitor closely -WBC 12.2, neut 9500. -CRP, ESR, lipase, BNP, procalcitonin, tox screen, COVID, influenza a/B, and RSV are all negative. -CXR, and chest CTA - negative for acute process. -abdominal ultrasound demonstrate enlarged fatty liver. No acute process. -ordered blood, stool, and urine cultures.MRSA -Continue skin checks Q Shift -especially in skin folds for cellulitis. -monitor inflammatory markers. 3. Morbid obesity, severe, acute on chronic, present on admission -as evidence by BMI of 58.1 -dietary consult ordered regarding nutritional education and information for dietary, lifestyle, exercise, and weight changes. -the patient is at much higher risk for medical and surgical complications due to his morbid obesity as it relates to chronic cellulitis resulting in two prolonged hospitalizations in 2021:, DAVON and his acute chest pain, and shortness of breath. The patient's morbid obesity places him at significant risk for heart attack, stroke, diabetes, as well as increases the difficulty and complexity of medical and/or surgical interventions, management and increases the chances of poor outcome such as morbidity and mortality as well as impaired wound healing. 4. Obstructive sleep apnea, noncompliant CPAP, acute on chronic, present on admission -patient's morbid obesity is a significant contributor to his obstructive sleep apnea, and shortness of breath -offered patient respiratory consult and CPAP for respiratory support patient refused. -left patient on 1L/NC while sleeping- O2 saturation rates in the low 90s. Will wean off 02 over the next 24 hours. -patient stated that he stopped smoking 2 years ago. Code status:Full Surrogate decision maker: Sister Sheila WILLIAMSON PCR: Negative DVT/VTE prophylaxis: Lovenox and SCDs Disposition: Patient admitted for observation for chest pain rule out/risk stratification, though leukocytosis unknown etiology, expected length of stay less than 2 midnights. I have utilized all available immediate resources to obtain, update, or review the patient's current medications. I confirmed that the patient's advanced care plan is present, Code status is documented and/or surrogate decision maker is listed in the patient's medical record. I have personally reviewed patient's chart notes from PCP, specialists, diagnostic imaging, and laboratory results. Time Spent With Patient Critical Care time: I spent a total of [] minutes of critical care time on this patient's care today; this time is exclusive of procedural time. Quality VTE Deep Vein Thrombosis/Pulmonary Embolism Present on Admission: No
[2022-05-18] MEDS: LOPERAMIDE 2 MG CAPSULE 4 MG PO (22:42)
[2022-05-18] MEDS: ACETAMINOPHEN 325 MG TABLET 650 MG PO (22:47)
[2022-05-18 22:56] LABS: Hemoglobin A1C% w Est Avg Glu 6.3 % (4.0-6.0)
[2022-05-18 23:12] LABS: TSH w/ Reflex to FT4 0.95 uIU/mL (0.47-4.68)
[2022-05-19] VITALS (9 sets, daily range): BP systolic 117–135; BP diastolic 57–78; PULSE 89–110; RESP 15–20; TEMP 36.1–37.5; O2SAT 92–97
[2022-05-19] MEDS: VANCOMYCIN 2,000 MG/400 ML PIGGYBACK 200 MG IV (04:47)
[2022-05-19 05:23] LABS: Add Manual Diff / Slide Review NO; Basophils Absolute Auto 0 /uL (0-100); Basophils Percent Auto 0.1 % (0-2); Eosinophils Absolute Auto 0 /uL (0-450); Eosinophils Percent Auto 0.3 % (2-4); Hematocrit 44.2 % (41-53); Lymphocytes Absolute Auto 1100 /uL (1100-4500); Lymphocytes Percent Auto 12.1 % (25-40); Mean Corpuscular HGB Conc 31.6 % (30-36); Mean Corpuscular Hemoglobin 26.1 PG (26-34); Mean Corpuscular Volume 82.7 fL (80-100); Monocytes Absolute Auto 700 /uL (0-900); Monocytes Percent Auto 7.5 % (3-14); Neutrophils Absolute Auto 7400 /uL (1500-7000); Platelet Count 229 X10^3/uL (150-400); Red Blood Cell Count 5.34 X10^6/uL (4.5-5.9); Red Cell Distribution Width 15.3 % (11.6-14.8); White Blood Cell Count 9.3 X10^3/uL (4.5-11.0)
[2022-05-19 05:32] LABS: BUN Creatinine Ratio 12.9 (6-22); Blood Urea Nitrogen 11 mg/dL (9-20); Calcium 7.7 mg/dL (8.4-10.2); Carbon Dioxide 28 mmol/L (22-32); Chloride 103 mmol/L (98-107); Cholesterol 139 mg/dL (140-199); Estimated Glomerular Filt Rate > 60 mL/min (>60); Glucose 102 mg/dL (70-100); HDL Cholesterol 35 mg/dL (40-60); HEMOLYSIS < 15 (0-50); LDL Cholesterol Calculated 89 mg/dL (<100); Potassium 3.9 mmol/L (3.4-5.1); Sodium 139 mmol/L (137-145); Triglycerides 74 mg/dL (35-150)
[2022-05-19 05:42] LABS: Troponin I < 0.012 ng/mL (0.01-0.034)
--- NOTE | 2022-05-19 06:22 | DI.ECHO.S_ITS ---
Reason For Study: CHEST PAIN Summary Statements This is a technically difficult study enhanced with Definity echo contrast. Sinus tachycardia noted for most of the study with heart rate fluctuating between 92-112 bpm. Normal LV size and mildly increased wall thickness. There is basal inferior, mid inferior, mid inferior lateral and distal inferior hypokinesis. Otherwise normal wall motion. Preserved low normal LV systolic function. Ejection fraction is estimated at 50-55%. Stage I diastolic dysfunction. Mild left atrial enlargement, but otherwise normal chamber sizes. Aortic valve leaflets are not well seen. No significant valvular abnormalities. Estimated PA systolic pressure is 41 mm Hg assuming RA pressure of 10 mm Hg. Normal ascending aorta diameter. No prior study available for comparison. Procedure: A two-dimensional transthoracic echocardiogram with color flow and Doppler was performed. The study quality was technically difficult. A contrast injection of Definity was performed to improve assessment of LV function. There is no prior echocardiogram noted for this patient. The patient was in sinus tachycardia with heart rates between 92-112 bpm during the exam. Left Ventricle: The ejection fraction is estimated to be 50-55%. The left ventricle is normal in size. There is mild concentric left ventricular hypertrophy. Right Ventricle: The right ventricle is normal in size and function. Atria: There is no Doppler evidence for an interatrial shunt. The left atrium is mildly dilated. Right atrial size is normal. Mitral Valve: There is trace mitral regurgitation. The mitral valve is normal in structure and function. Aortic Valve: No aortic regurgitation is present. There is no aortic valve stenosis. The aortic valve is not well visualized. Tricuspid Valve: There is trace tricuspid regurgitation. The tricuspid valve is normal in structure and function. Pulmonic Valve: There is no pulmonic valvular regurgitation. The pulmonic valve is not well visualized. Great Vessels: The dimensions of the ascending aorta are normal. The aortic root is not well visualized but is probably normal size. The inferior vena cava was not visualized. Pericardium/ Pleura: There is no pericardial effusion. There is no pleural effusion. 2D and M-Mode Measurements and Calculations LVIDd: 5.6 cm LVOT diam: 2.6 cm LVIDs: 3.3 cm asc Aorta Diam: 3.1 cm IVSd: 1.07 cm LVPWd: 1.11 cm LV vanegas. diameter/BSA (cm/m^2): 1.93 LV sys. diameter/BSA (cm/m^2): 1.16 RVD1 (basal): 3.3 cm RVD2 (mid): 3.1 cm TAPSE: 1.90 cm LA A4 area: 26.7 cm?? RA area: 17.9 cm?? LA A2 area: 28.4 cm?? RA long axis: 4.8 cm LA length (vol): 6.6 cm RA vol: 57.4 ml LA vol: 97.3 ml RA : 19.9 ml/m?? LA vol index: 33.8 ml/m?? Doppler Measurements and Calculations Ao V2 max: 144.7 cm/sec LVOT Max Jose: 108.8 cm/sec Ao V2 mean: 105.0 cm/sec LV V1 max P.7 mmHg Ao V2 VTI: 27.6 cm LV V1 VTI: 19.4 cm Ao max P.4 mmHg SV(LVOT): 105.1 ml Ao mean P.7 mmHg OLIVIA(I,D): 3.8 cm?? OLIVIA(V,D): 4.1 cm?? OLIVIA indexed to BSA (cm^2/m^2): 1.32 sev ratio: 0.70 MV E max jose: 114.8 cm/sec MV dec time: 0.22 sec MV A max jose: 74.0 cm/sec MV mean P.0 mmHg MV E/A: 1.55 MVA(VTI): 3.6 cm?? Med Peak E' Jose: 11.3 cm/sec Lat Peak E' Jose: 12.1 cm/sec E/e' average: 9.8 TR max jose: 279.2 cm/sec PA mean P.9 mmHg TR max P.2 mmHg PA V2 max: 139.6 cm/sec Electronically signed by: Venecia Goff M.D. 05/19/2022, 12: 38 PM
[2022-05-19 08:04] LABS: Appearance Urine UA SL CLOUDY; Bilirubin Urine UA NEGATIVE (NEGATIVE); Color Urine UA YELLOW; Glucose Urine UA NEGATIVE (Negative); Ketones Urine UA NEGATIVE (NEGATIVE); Leukocyte Esterase Urine UA NEGATIVE (NEGATIVE); Nitrite Urine UA NEGATIVE (Negative); Occult Blood Urine UA NEGATIVE (Negative); Protein Urine UA NEGATIVE (Negative); Specific Gravity Urine UA >=1.030 (1.000-1.035); Urobilinogen Urine UA 0.2 E.U./dL (0.2); pH Urine UA 5.5 (4.5-8.0)
[2022-05-19 08:14] LABS: Bacteria Urine None Seen; Culture Indicated Urine Specimen Cultured; RBC Urine None Seen (0-5/HPF); Squamous Epithelial Cell Urine 1-5 /HPF (0-5/HPF); WBC Urine 5-10/HPF (0-5/HPF)
--- NOTE | 2022-05-19 08:52 | CM.DANOTE ---
DCP: Case received, EMR reviewed and met with patient. Introduced self and role. Was able to obtain information regarding patient's baseline activity status prior to hospitalization. DCP assessment completed with information currently available. Patient is a 52 year old male who admitted yesterday afternoon to the care of the hospitalist team. PCP: Dr. Harlan Alexander. Payer: confirmed: Healthcare Management/[facility]. Patient came to the hospital via ambulance secondary to having chest pain, nausea. 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 Patient was also complaining of shortness of breath, and vomiting. Patient has history of sleep apnea, is on CPAP, morbid obesity, and celulitis. Patient had been placed on oxygen to keep his sats in the 90s. Patient was admitted for chest pain with shortness of breath:. He is to be having an echo today, possibility of stress test. Met with patient briefly in his room. He is alert and awake, oxygen in place. Confirmed that he resides with family in [place]. He is independent, is employed at [employer]. Confirmed that his provider is not Silvina Macedo, is Dr. Harlan Alexander. P: DCP to continue to follow for any needs. Patient should be able to go home when deemed medically stable. Janette Lopez RN/Director [facility] Discharge Planning/Care Management Discharge Assessment Start: 05/19/22 08:51 Freq: Status: Active Protocol: Document 05/19/22 08:51 (Rec: 05/19/22 08:52 [id number]) Discharge Planning Assessment Assigned Dough Molder Janette Lopez RN/Director [facility] Advance Directives? No Advance Directives on File No History Provided By Patient,Medical Record Prior Living Arrangements House Household Members family Type of transporation used prior to Drives own vehicle admit Independent with ADL's Yes Is patient alert and oriented? Yes Caregiver for Another No Barriers to Discharge No Discharge Plan Home Transportation Arrangement family Referrals Initiated None needed Whiteboard Updated in Patient Room with Yes name and ext. # of Dough Molder Review Status In Process Next Review Type Continued Stay Review
[2022-05-19] MEDS: cefTRIAXone 1,000 MG in SODIUM CHLORIDE 0.9% 100 ML 200 MG IV (09:32)
[2022-05-19] MEDS: ENOXAPARIN 40 MG/0.4 ML SYRINGE SUBCUT ×2 (09:32→21:15)
[2022-05-19] MEDS: ASPIRIN EC 325 MG TABLET PO (09:33)
--- NOTE | 2022-05-19 19:37 | PM.PN.1 ---
Subjective Subjective Date Patient Seen: 05/19/22 Interval history: He continues to feel unwell, though chest pain / epigastric pain has improved. He is nauseous and not hungry. Had a low grade fever to 100.6 today. Echo does show focal wall motion abnormalities, but given concern for possible underlying infection defer additional management to outpatient. Set up with caridology appointment on 05/28 today. Exam Vital Signs (past 8 hours): - 05/19/22 12:00 05/19/22 13:49 05/19/22 13:55 Temperature 99.5 F 98.9 F 99.4 F Pulse Rate 89 103 H Respiratory Rate 19 18 Blood Pressure 132/66 135/78 Pulse Oximetry 94 97 Oxygen Flow Rate 3 3 Oxygen Delivery Method Nasal Cannula Oxygen Flow Rate 3 Narrative Exam Narrative: GENERAL: [52] year old patient appears stated age, morbidly obese, acutely ill appearing. HEAD: Atraumatic. Normocephalic. Mucous membranes are moist. EYES: Pupils equal round and reactive. Extraocular motions intact. No scleral icterus. No injection or drainage. ENT: Nose without bleeding, purulent drainage. Throat without erythema, tonsillar hypertrophy or exudate. Airway patent. NECK: Trachea midline. Non tender CARDIOVASCULAR: Regular rate and rhythm without murmurs, gallops, or rubs. RESPIRATORY: Clear to auscultation in all lobes, slightly diminished in bilateral lower lobes, labored breathing during sleep.- pt refuses to wear CPAP GASTROINTESTINAL: Abdomen soft, nontender, nondistended, bowel sounds present in all 4 quadrants, no rebound tenderness, no CVA tenderness. : testicular tenderness on exam with minimal palpation, some yeast on skin, no erythema overlying. EXTREMITIES: No edema or joint tenderness. Moves all extremities, intact radial and pedal pulses. BACK: Nontender without deformity or crepitance. No flank tenderness. NEURO: Patient is arousable orientated to person place and time, but is heavily sedated and falls asleep mid sentence secondary to pain medication in ED SKIN: No rash or erythema of visible areas, skin is moist patient appears slightly diaphoretic, no signs of cellulitis, infection or broken skin. Objective Labs 05/19/22 04:40 05/19/22 04:40 Labs: Laboratory Results - last 24 hr 05/18/22 05/18/22 05/18/22 11:40 11:40 14:28 WBC RBC Hgb Hct MCV MCH MCHC RDW Plt Count Neut % (Auto) Lymph % (Auto) Butts % (Auto) Eos % (Auto) Baso % (Auto) Neut # (Auto) Lymph # (Auto) Butts # (Auto) Eos # (Auto) Baso # (Auto) Sodium Potassium Chloride Carbon Dioxide BUN Creatinine Estimated GFR BUN/Creatinine Ratio Glucose Hemoglobin A1c 6.3 H Calcium Magnesium 1.9 Troponin I Triglycerides Cholesterol LDL Cholesterol, Calc HDL Cholesterol TSH 0.95 Urine Color Urine Appearance Urine pH Ur Specific [place] Urine Protein Urine Glucose (UA) Urine Ketones Urine Occult Blood Urine Nitrate Urine Bilirubin Urine Urobilinogen Ur Leukocyte Esterase Urine RBC Urine WBC Ur Squamous Epith Cells Urine Bacteria Ur Culture Indicated? Nasal Screen MRSA (PCR) 05/19/22 05/19/22 05/19/22 04:40 04:40 05:00 WBC 9.3 RBC 5.34 Hgb 14.0 Hct 44.2 MCV 82.7 MCH 26.1 MCHC 31.6 RDW 15.3 H Plt Count 229 Neut % (Auto) 80.0 H Lymph % (Auto) 12.1 L Butts % (Auto) 7.5 Eos % (Auto) 0.3 L Baso % (Auto) 0.1 Neut # (Auto) 7400 H Lymph # (Auto) 1100 Butts # (Auto) 700 Eos # (Auto) 0 Baso # (Auto) 0 Sodium 139 Potassium 3.9 Chloride 103 Carbon Dioxide 28 BUN 11 Creatinine 0.85 Estimated GFR > 60 BUN/Creatinine Ratio 12.9 Glucose 102 H Hemoglobin A1c Calcium 7.7 L Magnesium Troponin I < 0.012 Triglycerides 74 Cholesterol 139 L LDL Cholesterol, Calc 89 HDL Cholesterol 35 L TSH Urine Color Urine Appearance Urine pH Ur Specific [place] Urine Protein Urine Glucose (UA) Urine Ketones Urine Occult Blood Urine Nitrate Urine Bilirubin Urine Urobilinogen Ur Leukocyte Esterase Urine RBC Urine WBC Ur Squamous Epith Cells Urine Bacteria Ur Culture Indicated? Nasal Screen MRSA (PCR) Negative for mrsa 05/19/22 07:45 WBC RBC Hgb Hct MCV MCH MCHC RDW Plt Count Neut % (Auto) Lymph % (Auto) Butts % (Auto) Eos % (Auto) Baso % (Auto) Neut # (Auto) Lymph # (Auto) Butts # (Auto) Eos # (Auto) Baso # (Auto) Sodium Potassium Chloride Carbon Dioxide BUN Creatinine Estimated GFR BUN/Creatinine Ratio Glucose Hemoglobin A1c Calcium Magnesium Troponin I Triglycerides Cholesterol LDL Cholesterol, Calc HDL Cholesterol TSH Urine Color Yellow Urine Appearance Sl cloudy Urine pH 5.5 Ur Specific [place] >=1.030 H Urine Protein Negative Urine Glucose (UA) Negative Urine Ketones Negative Urine Occult Blood Negative Urine Nitrate Negative Urine Bilirubin Negative Urine Urobilinogen 0.2 Ur Leukocyte Esterase Negative Urine RBC None seen Urine WBC 5-10/hpf H Ur Squamous Epith Cells 1-5 /hpf Urine Bacteria None seen Ur Culture Indicated? Specimen cultured Nasal Screen MRSA (PCR) [facility] Medical History Cellulitis of left leg Chronic low back pain History of recent hospitalization Morbid obesity Morbid obesity DAVON (obstructive sleep apnea) Surgical History H/O laceration repair Family History Father Diabetes mellitus Cancer Mother Healthy adult Asthma Social History household members: family Smoking Status: Former smoker alcohol intake: current Assessment & Plan Assessment & Plan narrative: Kenan Dougherty 52-year-old male with history of sleep apnea/CPAP, cellulitis, morbid obesity who presented to the ED via EMS for evaluation of chest pain with SOB. His echocardiogram has focal wall motion abnormalities, but deferred additional management after discussion with cardiology today until source of underlying illness can be found or symptoms improve. 1. Chest pain, with shortness of breath, acute, present on admission-resolved -patient becomes short of breath with any sort of movement even rolling [id number] in the bed-this is likely due to the patient's morbid obesity. -Chest CTA negative for PE or acute process, -chest x-ray is negative for any acute cardiopulmonary process. -EKG sinus rhythm 93 occasional PVCs, PVCs are new from last EKG on 07/20/2021 which I personally reviewed. -Continue asa and statin for presumed CAD given abnormal echocardiogram (wall motion abnoramlities). -TTE with focal wall motion abnormalities and hypokinesis inferiorly. EF 50-55%, grade I diastolic dysfunction. PA systolic pressure of 41 mm Hg estimated. 2. Bacterial infection, uncertain source. -mildly febrile, tachycardic, tachypneic. Low grade fever to 100.6. -HX of recurrent hospitalizations for cellulitis. -may have orchitis? Tender on exam. Check US scrotum. -continue ceftriaxone and azithro for ? pneumonia given chest discomfort on admission, hypoxia with negative CT angio. 3. Morbid obesity, severe, acute on chronic, present on admission -as evidence by BMI of 58.1 -dietary consult ordered regarding nutritional education and information for dietary, lifestyle, exercise, and weight changes. -the patient is at much higher risk for medical and surgical complications due to his morbid obesity as it relates to chronic cellulitis resulting in two prolonged hospitalizations in 2021:, DAVON and his acute chest pain, and shortness of breath. The patient's morbid obesity places him at significant risk for heart attack, stroke, diabetes, as well as increases the difficulty and complexity of medical and/or surgical interventions, management and increases the chances of poor outcome such as morbidity and mortality as well as impaired wound healing. 4. Obstructive sleep apnea, noncompliant CPAP, acute on chronic, present on admission with possible OHS and pulmonary HTN -patient's morbid obesity is a significant contributor to his obstructive sleep apnea, and shortness of breath -offered patient respiratory consult and CPAP for respiratory support patient refused. -left patient on 1L/NC while sleeping- O2 saturation rates in the low 90s. Will wean off 02 over the next 24 hours. -patient stated that he stopped smoking 2 years ago. 5. Acute hypoxic respiratory faioure. - may be due to OHS, cannot rule out pneumonia. No PE or CTA. - continue antibiotics as noted above - consider diuresis as he does have grade I diastolic dysfunction on TTE. Code status:Full Surrogate decision maker: Sister Sheila WILLIAMSON PCR: Negative DVT/VTE prophylaxis: Lovenox and SCDs Disposition: Inpatient, probable discharge home in 1-2 days depending on symptom improvement. Time Spent With Patient Critical Care time: I spent a total of [] minutes of critical care time on this patient's care today; this time is exclusive of procedural time. Quality VTE Deep Vein Thrombosis/Pulmonary Embolism Present on Admission: No
--- NOTE | 2022-05-19 19:43 | DI.US.S_ITS ---
PROCEDURE: US SCROTUM INDICATIONS: FEVER AND TESTICULAR PAIN TECHNIQUE: Real-time scanning was performed of the scrotum and testicles, with image documentation. Color and pulse Doppler interrogation was performed of both testicles. COMPARISON: [facility], , US SCROTUM, 06/01/2021, 16:44. FINDINGS: Right: Testicle is normal in size at 5.5 x 3.6 x 3.3 cm, volume of 34 cc and heterogeneous in echotexture. Epididymis is not well seen. No hydrocele or varicoceles. Scrotal wall thickening measuring at 1 0.1 cm. Heterogeneous with wall thickening. Increased blood flow compared to the left. Left: Testicle is normal in size at 6.3 x 3.7 x 2.8 cm, volume of 34 cc and heterogeneous in echotexture. Epididymis is mildly heterogeneous. Epididymal head cyst measuring at 0.4 cm. No hydrocele or varicoceles. Scrotal wall is mildly heterogeneous and measures 0.5 cm. Doppler: Color and pulse Doppler demonstrate normal and symmetric arterial flow in both testicles. IMPRESSION: 1. Right scrotal wall is thickened and heterogeneous with prominent blood flow. This could represent cellulitis and/or edema. 2. Left testicle blood flow is more prominent compared to the right. The left epididymis is mildly heterogeneous. This is nonspecific but could represent epididymo-orchitis. Alternatively, but felt to be less likely, there could be decreased perfusion to the right testicle. This could be confounded due to the right scrotal wall thickening/edema. 3. No hydrocele or varicocele. 4. No testicular mass. Dictated by: Edwin Mendoza M.D. on 05/20/2022 at 9:18 Approved by: Edwin Mendoza M.D. on 05/20/2022 at 9:26
[2022-05-19] MEDS: ACETAMINOPHEN 325 MG TABLET 650 MG PO (19:45)
[2022-05-20 03:30] VITALS: BP 132/73; PULSE 90; RESP 18; TEMP 36.7; O2SAT 91
[2022-05-20 08:31] VITALS: BP 136/74; PULSE 89; RESP 18; TEMP 36.1; O2SAT 93
[2022-05-20] MEDS: ENOXAPARIN 40 MG/0.4 ML SYRINGE SUBCUT (08:48)
[2022-05-20] MEDS: ASPIRIN EC 325 MG TABLET PO (08:49)
[2022-05-20] MEDS: ACETAMINOPHEN 325 MG TABLET 650 MG PO (08:50)
--- NOTE | 2022-05-20 12:14 | PM.DS.1 ---
History of Present Illness History of Present Illness Date Patient Seen: 05/20/22 Time Patient Seen: 12:14 Chief complaint: Chest Pressure Narrative: Per admitting provider, Kenan Dougherty 52-year-old male with history of sleep apnea/CPAP,, cellulitis, morbid obesity who presented to the ED via EMS for evaluation of chest pain that started just prior to his arrival.? 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 Admittedly he states he did not sleep well, had not eaten anything this morning and had multiple cups of coffee on an empty stomach.? At its most intense his pain was 6/10 and improved to 2 or 3/10 after EMS aspirin and nitro.? Patient denies any obvious provocation or radiation of symptoms.? He is nauseated but denies any unexplained diaphoresis.? He is had no exertional symptoms and denies any recent exercise intolerance.? He denies any recent medication or dietary change.? He denies any recent travel, trauma, injury, history of blood clot or cancer. Patient experienced vomiting in the ED, and has since been medicated for both pain and nausea. On admit patient can barely wake/stay awake long enough to answer my questions- denies chest pain, shortness in breath, headache, changes in vision, difficulty swallowing, speech impairment, weakness, numbness, tingling, difficulty with ambulation, recent falls, head injury, LOC, fever, body aches, chills, cough, recent exposure to illness, abdominal pain, nausea, further vomiting, urinary incontinence/retention, dysuria, frequency, urgency, hematuria, bowel changes, constipation, incontinence, melena, rashes, recent changes to medication, illness, injury, or trauma. At admit temp 100.6?, 128/72, slightly tachycardic 108, 20, patient is satting 96-97% on 2 L nasal cannula. Turned off the oxygen-02 sat%-drop to 89% while sleeping on rm air in no distress. WBC 12.2, with a slight left shift neut 9500. CRP, ESR, lipase, BNP, procalcitonin, tox screen, COVID, influenza a/B, and RSV are all negative. ABGs: PH 7.37, pCO2 48.7, PO2 65, HC03 28, TCO2 29, O2 sat 91%, BE 3.0, FiO2 28. Chest CTA negative for PE or acute process, abdominal ultrasound demonstrate enlarged fatty liver, chest x-ray is negative for any acute cardiopulmonary process. EKG sinus rhythm 93 occasional PVCs, PVCs are new from last EKG on 07/20/2021 which I personally reviewed. Patient admitted for chest pain shortness breath, risk stratification, and neutrophilic leukocytosis. Discharge Providers Provider Date of admission: 05/19/22 10:00 Discharge Date: 05/20/22 Primary care physician: Silvina Cartwright MD Consults: 05/18/22 20:04 Consult to Dietitian, Adult Routine Comment: Reason For Exam: BMI 58.1 Consult to Discharge Planning Routine Comment: Discharge provider: Wiley Carvajal DO Summary Hospital Course Discharge Diagnosis: Please see hospital course by problem list noted below: Hospital Course: 1. Chest pain, with shortness of breath, acute, present on admission-resolved -patient admitted with any sort of movement even rolling [id number] in the bed-this is likely due to the patient's morbid obesity in combination with probable underlying ischemia noted below. -Chest CTA negative for PE or acute process on admission. -chest x-ray is negative for any acute cardiopulmonary process.? -EKG sinus rhythm 93 occasional PVCs, PVCs are new from last EKG on 07/20/2021 which I personally reviewed. -Continue asa and statin for presumed CAD / underlying ischemia given abnormal echocardiogram (wall motion abnoramlities). -TTE with focal wall motion abnormalities and hypokinesis inferiorly. EF 50-55%, grade I diastolic dysfunction. PA systolic pressure of 41 mm Hg estimated. -discussed with cardiology, and given probable bacterial infection noted below, and no acute coronary syndrome, he was given outpatient follow up in early may as an outpatient for additional evaluation and probable LHC. 2. Bacterial infection, possibly orchitis -mildly febrile, tachycardic, tachypneic on admission. Low grade fever to 100.6. -HX of recurrent hospitalizations for cellulitis. -may have orchitis? Tender on exam and ultrasound was consistent with possible orchitis. -he was continued on ceftriaxone and azithromycin with improvement in his symptoms initially for possible PNA given presentation with fever and shortness of breath. Given probable orchitis he was discharged on levofloxacin for an additional 10 days at the time of discharge. 3.? Morbid obesity, severe, acute on chronic, present on admission -as evidence by BMI of 58.1 -dietary consult ordered regarding nutritional education and information for dietary, lifestyle, exercise, and weight changes. -the patient is at much higher risk for medical and surgical complications due to his morbid obesity as it relates to chronic cellulitis resulting in two prolonged hospitalizations in 2021:, DAVON and his acute chest pain, and shortness of breath.? The patient's morbid obesity places him at significant risk for heart attack, stroke, diabetes, as well as increases the difficulty and complexity of medical and/or surgical interventions, management and increases the chances of poor outcome such as morbidity and mortality as well as impaired wound healing. 4. Obstructive sleep apnea, noncompliant CPAP, acute on chronic, present on admission with possible OHS and pulmonary HTN -patient's morbid obesity is a significant contributor to his obstructive sleep apnea, and shortness of breath -offered patient respiratory consult and CPAP for respiratory support patient refused. -he was not requiring supplemental oxygen at the time of discharge. -patient stated that he stopped smoking 2 years ago. 5. Acute hypoxic respiratory faioure. ?- may be due to OHS, cannot rule out pneumonia. No PE or CTA. ?- continue antibiotics as noted above ?- his hypoxia resolved at the time of discharge, etiology is not entirely clear but most likely due to obesity hypoventilation and / or DAVON. Time Spent with Patient Time spent: Greater than 30 minutes Exam Vital Signs (past 8 hours): - 05/20/22 08:31 05/20/22 08:15 Temperature 97 F L Pulse Rate 89 Respiratory Rate 18 Blood Pressure 136/74 Pulse Oximetry 93 Oxygen Delivery Method Nasal Cannula Oxygen Flow Rate 0 Oxygen Delivery Method Nasal Cannula Oxygen Flow Rate 0 Narrative Exam Narrative: GENERAL: [52] year old patient appears stated age, morbidly obese, no acute distress. HEAD: Atraumatic. Normocephalic. Mucous membranes are moist. EYES: Pupils equal round and reactive. Extraocular motions intact. No scleral icterus. No injection or drainage. ENT: Nose without bleeding, purulent drainage. Throat without erythema, tonsillar hypertrophy or exudate. Airway patent. NECK: Trachea midline. Non tender CARDIOVASCULAR: Regular rate and rhythm without murmurs, gallops, or rubs. RESPIRATORY: Clear to auscultation in all lobes, slightly diminished in bilateral lower lobes, labored breathing during sleep.- pt refuses to wear CPAP GASTROINTESTINAL: Abdomen soft, nontender, nondistended, bowel sounds present in all 4 quadrants, no rebound tenderness, no CVA tenderness. : testicular tenderness on exam with minimal palpation, some yeast on skin, no erythema overlying. EXTREMITIES: No edema or joint tenderness. Moves all extremities, intact radial and pedal pulses. BACK: Nontender without deformity or crepitance. No flank tenderness. NEURO: Patient is arousable orientated to person place and time, but is heavily sedated and falls asleep mid sentence secondary to pain medication in ED SKIN: No rash or erythema of visible areas, skin is moist patient appears slightly diaphoretic, no signs of cellulitis, infection or broken skin. Objective Labs 05/19/22 04:40 05/19/22 04:40 [facility] Medical History Cellulitis of left leg Chronic low back pain History of recent hospitalization Morbid obesity Morbid obesity DAVON (obstructive sleep apnea) Surgical History H/O laceration repair Family History Father Diabetes mellitus Cancer Mother Healthy adult Asthma Social History household members: family Smoking Status: Former smoker alcohol intake: current Discharge Plan Discharge Plan Patient Disposition: Home Provider Discharge Comment: You were admitted to the hospital for further evaluation. You had an abnormal echocardiogram and have cardiology follow up on 05/28/22. Youre being treated for possible pneumonia or orchitis. Discharge orders & Medications Prescriptions: New aspirin [Adult Low Dose Aspirin] 81 mg tablet,delayed release (DR/EC) 81 mg PO DAILY 30 Days Qty: 30 0RF atorvastatin 40 mg tablet 40 mg PO BEDTIME 30 Days Qty: 30 0RF metoprolol succinate 25 mg tablet extended release 24 hr 25 mg PO DAILY 30 Days Qty: 30 0RF levofloxacin 750 mg tablet 750 mg PO DAILY 10 Days Qty: 10 0RF Follow up/Referrals: Silvina Cartwright MD [Primary Care Provider] - Diet/Activity/Treatments Diet: Diet as Tolerated Activity: As tolerated. Visit Report/Discharge Packet Instructions: Pneumonia-Adult, DI for Pneumonia -- Adult, How to Prevent Falls, Orchitis, DI for Orchitis Stand Alone Forms: Patient Portal/API, Stroke Signs & Symptoms Discharge Data Primary Care Provider: Silvina Cartwright VTE Deep Vein Thrombosis/Pulmonary Embolism Present on Admission: No
--- NOTE | 2022-05-20 14:09 | PC.NURSE ---
Day shift: Paperwork signed and all questions answered. Pt has all personal belongings. scripts sent electronic to Pt's pharmacy. Taken to car via WC at approx 1400. Pt's Mother is driving them home. Remains steady on his feet and VS WNL.
--- NOTE | 2022-05-20 15:57 | DIET.CONS2 ---
Dietary Inpatient Consultation Note Admission Date: 05/19/2022 10:00 52 y/o M admitted for chest pain SOB, risk stratification, and neutrophilic leukocytosis. RD consulted for BMI 58.1 (morbidly obese). Met with pt at bedside to discuss current diet. Pt seemed not completely oriented but was able to answer a few questions. Pt consumes many sugary beverages throughout day: gatorade (3-4 24 oz bottles/day, 34g sugar/bottle), propel, sprite. Pt reports not liking these in SF, however, does drink Liquid IV and unsweetened iced tea. Urged pt to chose SF options over surgary options. Pt reports enjoying spaghetti, fish, pancakes, and hard boiled eggs. Wt hx: pt seems to have a somewhat unstable wt varying between 167-190 kg in 3.5 yrs. Nutrition Percent Meal Consumed 75% 05/19/22 17:39 Percent Meal Consumed 50% 05/19/22 09:45 Electronically Signed by: Maddy Martinez 05/20/22 15:57 Clinical Dietitian [address] [id number]
== END 2022-05-20 14:11 | disposition home or self-care (01) | DRG 640 ==
LOC: ED 11:35 → AC 17:56
PROVIDERS: Nurse Practitioner Family; Admitting Provider Neuromusculoskeletal Medicine, Sports Medicine; Emergency Provider Emergency Medicine; Family Provider Family Medicine; PCP Family Medicine; Referring Provider Emergency Medicine; Visit Provider Neuromusculoskeletal Medicine, Sports Medicine
DX: E66.01 Morbid (severe) obesity due to excess calories (principal); J96.01 Acute respiratory failure with hypoxia; Z68.43 Body mass index [BMI] 50.0-59.9, adult; G47.33 Obstructive sleep apnea (adult) (pediatric); N45.2 Orchitis; I25.10 Atherosclerotic heart disease of native coronary artery without angina pectoris; Z20.822 Contact with and (suspected) exposure to COVID-19; Z87.891 Personal history of nicotine dependence
CPT/HCPCS: 0241U; 36600; 71045; 71275; 76705; 76870; 80048; 80053; 80061; 80305; 81001; 81003; 82550; 82553; 82805; 83036; 83690; 83735; 83880; 84145; 84443; 84484; 85025; 85379; 85610; 85651; 86140; 87040; 87086; 87797; 93005; 93975; 94760; 94762; 96374; 96375; 99284; G0378; C8929; C9113; J0696; J1650; J2405; J2765; Q9957; Q9967

== ENCOUNTER 2023-01-21 09:57 | Emergency (ER) | payer OTHER, SELFPAY ==
[2022-05-18 18:44] VITALS: BMI 58.1
[2023-01-21 09:59] VITALS: BP 141/83; PULSE 81; RESP 18; TEMP 36.9; O2SAT 96; BMI 52.9
[2023-01-21 10:37] LABS: Add Manual Diff / Slide Review NO; Appearance Urine UA CLOUDY; Basophils Absolute Auto 100 /uL (0-100); Basophils Percent Auto 0.8 % (0-2); Bilirubin Urine UA NEGATIVE (NEGATIVE); Color Urine UA RED; Eosinophils Absolute Auto 100 /uL (0-450); Glucose Urine UA NEGATIVE (Negative); Hematocrit 47.1 % (41-53); Hemoglobin 15.3 g/dL (13.5-17.5); Ketones Urine UA NEGATIVE (NEGATIVE); Leukocyte Esterase Urine UA 2+ (NEGATIVE); Lymphocytes Absolute Auto 3600 /uL (1100-4500); Lymphocytes Percent Auto 29.5 % (25-40); Mean Corpuscular HGB Conc 32.4 % (30-36); Mean Corpuscular Hemoglobin 26.2 PG (26-34); Monocytes Absolute Auto 1000 /uL (0-900); Monocytes Percent Auto 8.6 % (3-14); Neutrophils Absolute Auto 7300 /uL (1500-7000); Neutrophils Percent Auto 60.1 % (50-75); Nitrite Urine UA NEGATIVE (Negative); Occult Blood Urine UA 3+ (Negative); Platelet Count 253 X10^3/uL (150-400); Protein Urine UA 2+ (Negative); Red Blood Cell Count 5.82 X10^6/uL (4.5-5.9); Red Cell Distribution Width 16.4 % (11.6-14.8); Urobilinogen Urine UA 0.2 E.U./dL (0.2); White Blood Cell Count 12.1 X10^3/uL (4.5-11.0)
[2023-01-21 10:44] LABS: Bacteria Urine Few (2-10); Culture Indicated Urine Specimen Cultured; RBC Urine >100/HPF (0-5/HPF); Squamous Epithelial Cell Urine None Seen (0-5/HPF); WBC Urine 5-10/HPF (0-5/HPF)
[2023-01-21 10:55] LABS: Alanine Aminotransferase 36 IU/L (<50); Albumin 4.3 g/dL (3.5-5.0); Albumin Globulin Ratio 1.1 (1.0-2.8); Alkaline Phosphatase 57 U/L (38-126); Aspartate Aminotransferase 26 IU/L (17-59); BUN Creatinine Ratio 20.5 (6-22); Bilirubin Total 0.3 mg/dL (0.2-1.3); Blood Urea Nitrogen 17 mg/dL (9-20); Calcium 9.6 mg/dL (8.4-10.2); Carbon Dioxide 27 mmol/L (22-32); Chloride 105 mmol/L (98-107); Estimated Glomerular Filt Rate > 60 mL/min (>60); Globulin 3.9 g/dL (1.7-4.1); Glucose 99 mg/dL (70-100); HEMOLYSIS < 15 (0-50); Lipase 63 U/L (23-300); Potassium 4.1 mmol/L (3.4-5.1); Sodium 139 mmol/L (137-145); Total Protein 8.2 g/dL (6.3-8.2)
--- NOTE | 2023-01-21 11:26 | DI.CT.S_ITS ---
PROCEDURE: CT ABDOMEN PELVIS WO/W CON INDICATIONS: L flank pain, recent lithotripsy TECHNIQUE: After the administration of oral contrast, 5 mm thick sections acquired from the diaphragms to the iliac crests. After the administration of intravenous contrast, 5 mm thick sections acquired from the diaphragms to the symphysis. 5 mm thick coronal and sagittal reformats were acquired. For radiation dose reduction, the following was used: automated exposure control, adjustment of mA and/or kV according to patient size. COMPARISON: [facility], CT, CT ABDOMEN PELVIS W CON, 06/01/2021, 17:16. FINDINGS: Image quality: Excellent. ABDOMEN: Lung bases: No suspicious pulmonary nodule or consolidation. Dependent atelectasis. No basilar effusion. Normal heart size. Kidneys and bladder: Left-sided double-J ureteral stent is in appropriate position with proximal pigtail in the upper pole calyx and distal pigtail in the bladder. Small amount of calcified debris in the left lower pole (2/38). Nonobstructive nephrolith in the left upper pole measuring 6 mm (2/30). No hydronephrosis bilaterally. No right-sided nephrolithiasis. Delayed phase imaging demonstrates no suspicious filling defect or extravasation of the collecting system. No perinephric fluid collection or hematoma. No stones in the bladder or suspicious filling defects. Punctate focus of air, likely related to recent instrumentation. Additional Solid organs: Liver is normal in size and enhancement. Gallbladder demonstrates no stones or sludge. No wall thickening or pericholecystic fluid. Biliary system is non-dilated. Pancreas enhances normally. Spleen is normal in size and enhancement. No adrenal nodules. Bowel and peritoneum: Stomach appears grossly normal. Small and large bowel is normal in caliber, without obstruction. Normal appendix (2/61). No pneumatosis, pneumoperitoneum or portal venous gas. A few scattered colonic diverticuli, without diverticulitis. Nodes and vessels: No retroperitoneal or mesenteric adenopathy by size criteria. Decreased size of prominent left external iliac lymph node measuring 7 mm in short axis (2/66), previously 8 mm in short axis (2/74). Decreased size of left common iliac lymph node measuring 0.9 cm in short axis (2/58), previously 1.6 cm in short axis (2/66). No enlarged inguinal lymph nodes by size criteria. Aorta and inferior vena cava are normal in caliber. Miscellaneous: No ventral hernias. PELVIS: Genitourinary: Bladder wall thickness is normal. Miscellaneous: Small bilateral fat containing inguinal hernias. Bones: No acute fractures. No aggressive appearing lytic or blastic osseous lesions. Mild multilevel degenerative changes of the spine. IMPRESSION: 1. Status post left lithotripsy with no evidence of complication. Double-J ureteral stent is in appropriate position with proximal pigtail in the upper pole calyx and distal pigtail in the bladder. No hydronephrosis or perinephric fluid collection. No contrast extravasation or suspicious filling defect. 2. Small amount of calcified debris in the left lower pole and nonobstructive nephrolith in the upper pole measuring 6 mm. No right-sided nephrolithiasis. 3. Left iliac and inguinal lymphadenopathy has decreased in size, likely reactive. Dictated by: Katerina Oconnor M.D. on 01/21/2023 at 12:25 Approved by: Katerina Oconnor M.D. on 01/21/2023 at 12:37
--- NOTE | 2023-01-21 11:26 | ED.ABDPAIN ---
HPI - Abdominal Pain General Chief Complaint: Abdominal Pain Stated Complaint: post op kidney stone T-2/ pain/blood in urine Time Seen by Provider: 01/21/23 10:29 Source: patient Mode of arrival: Ambulatory History of Present Illness HPI narrative: 52M former smoker with sleep apnea and kidney stones presents with a chief complaint of left flank pain. He states that he had a lithotripsy in [place] a few days ago and was told to expect some pain but went to work today and was quite uncomfortable and they sent him here for evaluation. He denies any fever or chills. He has no nausea or vomiting. He denies any chest pain or shortness of breath. He denies trouble urinating. Related Data Allergies Allergy/AdvReac Type Severity Reaction Status Date / Time Sulfa (Sulfonamide Allergy Verified 01/21/23 10:08 Antibiotics) Review of Systems Review of Systems Narrative: GENERAL: Denies chills, fatigue, malaise, fever, sweats. HEENT: Denies sinus pain, ear pain, sore throat, difficulty swallowing, dizziness. RESPIRATORY: Denies dyspnea, cough, wheezing, hemoptysis, sputum. CARDIOVASCULAR: Denies chest pain, palpitations, orthopnea, edema, GASTROINTESTINAL: Denies nausea, vomiting, abdominal pain, diarrhea, constipation, melena. : See HPI MUSCULOSKELETAL: denies weakness, joint pain, or bony pain SKIN: Denies rash, skin lesions, or other NEUROLOGIC: Denies weakness, headache, numbness, change in speech, confusion, seizures, incoordination. PSYCHIATRIC: No concerning psychosocial issues. 12 point review of systems is negative except for those stated above Patient History Medical History Cellulitis of left leg Chronic low back pain History of recent hospitalization Morbid obesity Morbid obesity DAVON (obstructive sleep apnea) Surgical History H/O laceration repair Family History Father Diabetes mellitus Cancer Mother Healthy adult Asthma Social History household members: family Smoking Status: Former smoker alcohol intake: current Smoking Status: Former smoker alcohol intake frequency: holidays/special occasions only Substance Use Type: does not use Exam Narrative Exam Narrative: GENERAL: [52] year old patient appears stated age. Well-developed patient, in mild distress. HEAD: Atraumatic. Normocephalic. EYES: Pupils equal round and reactive. Extraocular motions intact. No scleral icterus. No injection or drainage. ENT: Nose without bleeding, purulent drainage. Throat without erythema, tonsillar hypertrophy or exudate. Airway patent. NECK: Trachea midline. Non tender CARDIOVASCULAR: Regular rate and rhythm without murmurs, gallops, or rubs. RESPIRATORY: Clear to auscultation. Breath sounds equal bilaterally. No wheezes, rales, or rhonchi. GASTROINTESTINAL: Abdomen soft, non-tender, nondistended. EXTREMITIES: No edema or joint tenderness. BACK: Nontender without deformity or crepitance. Mild left flank tenderness NEURO: AOx3. SKIN: No rash or erythema of visible areas Initial Vital Signs Initial Vital Signs: Vital Signs Temperature 98.4 F 01/21/23 09:59 Pulse Rate 81 01/21/23 09:59 Respiratory Rate 18 01/21/23 09:59 Blood Pressure 141/83 H 01/21/23 09:59 Pulse Oximetry 96 01/21/23 09:59 Oxygen Delivery Method Room Air 01/21/23 09:59 Course Orders Ordered: ED Orders 01/21/23 10:24 EKG-12 Lead Stat 01/21/23 10:28 Complete Blood Count AUTO DIFF Stat Comprehensive Metabolic Panel Stat Lipase Stat Urinalysis and Microscopic Stat Urine Culture Stat 01/21/23 11:26 IVP [CT abdomen pelvis wo/w con] Stat Discontinued Medications Hydromorphone HCl (Hydromorphone 0.5 Mg Inj) 0.5 mg IV NOW ONE Stop: 01/21/23 12:21 Last Admin: 01/21/23 12:44 Dose: 0.5 mg Documented By: CHEYANNE Ondansetron HCl (Ondansetron 4 Mg Odt) 4 mg PO NOW PRN PRN Reason: Nausea And Vomiting Ondansetron HCl (Ondansetron 4 Mg/2 Ml Inj) 4 mg IV NOW PRN PRN Reason: Nausea And Vomiting Vital Signs Vital signs: Vital Signs - 8 hr 01/21/23 09:59 01/21/23 12:54 01/21/23 13:00 Temperature 98.4 F Pulse Rate 81 81 80 Respiratory Rate 18 Blood Pressure 141/83 H 140/84 Pulse Oximetry 96 94 96 Oxygen Delivery Method Room Air 01/21/23 13:31 Temperature Pulse Rate 71 Respiratory Rate Blood Pressure 166/76 H Pulse Oximetry 93 Oxygen Delivery Method MDM - Abdominal Pain Lab Data 01/21/23 10:28 01/21/23 10:28 Labs: Lab Results 01/21/23 Range/Units 10:28 WBC 12.1 H (4.5-11.0) X10^3/uL RBC 5.82 (4.5-5.9) X10^6/uL Hgb 15.3 (13.5-17.5) g/dL Hct 47.1 (41-53) % MCV 81.0 (80-100) fL MCH 26.2 (26-34) PG MCHC 32.4 (30-36) % RDW 16.4 H (11.6-14.8) % Plt Count 253 (150-400) X10^3/uL Neut % (Auto) 60.1 (50-75) % Lymph % (Auto) 29.5 (25-40) % [place] % (Auto) 8.6 (3-14) % Eos % (Auto) 1.0 L (2-4) % Baso % (Auto) 0.8 (0-2) % Neut # (Auto) 7300 H (5174-3669) /uL Lymph # (Auto) 3600 (8144-9100) /uL [place] # (Auto) 1000 H (0-900) /uL Eos # (Auto) 100 (0-450) /uL Baso # (Auto) 100 (0-100) /uL Sodium 139 (137-145) mmol/L Potassium 4.1 (3.4-5.1) mmol/L Chloride 105 (98-107) mmol/L Carbon Dioxide 27 (22-32) mmol/L BUN 17 (9-20) mg/dL Creatinine 0.83 (0.66-1.25) mg/dL Estimated GFR > 60 (>60) mL/min BUN/Creatinine Ratio 20.5 (6-22) Glucose 99 (70-100) mg/dL Calcium 9.6 (8.4-10.2) mg/dL Total Bilirubin 0.3 (0.2-1.3) mg/dL AST 26 (17-59) IU/L ALT 36 (<50) IU/L Alkaline Phosphatase 57 (38-126) U/L Total Protein 8.2 (6.3-8.2) g/dL Albumin 4.3 (3.5-5.0) g/dL Globulin 3.9 (1.7-4.1) g/dL Albumin/Globulin Ratio 1.1 (1.0-2.8) Lipase 63 (23-300) U/L Urine Color Red Urine Appearance Cloudy Urine pH 6.0 (4.5-8.0) Ur Specific [place] 1.020 (1.000-1.035) Urine Protein 2+ H (Negative) Urine Glucose (UA) Negative (Negative) g/dL Urine Ketones Negative (NEGATIVE) Urine Occult Blood 3+ H (Negative) Urine Nitrate Negative (Negative) Urine Bilirubin Negative (NEGATIVE) Urine Urobilinogen 0.2 (0.2) E.U./dL Ur Leukocyte Esterase 2+ H (NEGATIVE) Urine RBC >100/hpf H (0-5/HPF) Urine WBC 5-10/hpf H (0-5/HPF) Ur Squamous Epith Cells None seen (0-5/HPF) Urine Bacteria Few (2-10) H (None) Ur Culture Indicated? Specimen cultured MDM Narrative Medical decision making narrative: [52] year old patient presents with flank pain, hematuria, recent lithotripsy Multiple etiologies for patient's symptoms considered including, but not limited to: [Infectious process versus postsurgical complication versus expected sequela versus other] Prior Charts reviewed in our EMR Primary Historian: patient Labs reviewed and interpreted by myself: Slight elevation in white blood cells, no fever, no left shift, primary electrolytes and creatinine within normal Imaging reviewed: CT IVP -status post lithotripsy with no evidence of a complication Patient's history and physical exam are reassuring, multiple diagnoses considered as noted above. Urine with only 5-10 white blood cells and a large amount of RBCs, no obvious infection. Imaging suggest against the likelihood of any postsurgical complication. Pain is well controlled, no signs of sepsis, tolerating orals Patient's symptoms improved over duration of stay with above-stated therapies. Findings and discharge diagnosis discussed with patient/family followed by verbalization of understanding Return precautions discussed with patient/family whom verbalize understanding of diagnosis and plan Discharge Plan Departure Patient Disposition: Home Clinical Impression: Hematuria, Acute flank pain Instructions: Blood in Urine Activity Restrictions/Additional Instructions: *You have been diagnosed with [left flank pain and hematuria. As we discussed your history and physical exam are reassuring and there is no signs of infection, and your CT shows no unexpected findings in the aftermath of your lithotripsy.] *What to do: *Please continue to take your regular medications as directed. [ ] New medication prescriptions sent to your pharmacy: [ ] [ ] New medication written as a paper prescription [ ] No new medications given *Please follow up with your primary care provider in 2-3 days, call for an appointment. Let them know you were seen in the Emergency Department and that we ask that you be seen in follow up. We will electronically transmit a record of today's note if your PCP is in our system *If you do not have a primary care provider please contact the [facility] Resource line at [phone]. They will ask some questions about your medical history and help get you set up with a doctor in the community. *Return to Emergency Department if you should have any new, worsening or concerning symptoms, such as [fever greater than 101 F, shaking chills, worsening pain, persistent vomiting or other bothersome symptoms] Referrals: Silvina Cartwright MD [Primary Care Provider] - Stand Alone Forms: Patient Portal/API
--- NOTE | 2023-01-21 12:06 | PC.NURSE ---
Pt states that he had lithotripsy on Tuesday01/19/2023 and has been having flank pain and cramping ever since. Pt also reports having traces of blood in his urine. Pt ambulated to bathroom independently and ambulated to [place] with steady gait.
[2023-01-21] MEDS: HYDROMORPHONE 0.5 MG INJ IV (12:44)
[2023-01-21 12:54] VITALS: BP 140/84; PULSE 81; O2SAT 94
[2023-01-21 13:00] VITALS: PULSE 80; O2SAT 96
[2023-01-21 13:31] VITALS: BP 166/76; PULSE 71; O2SAT 93
== END 2023-01-21 13:47 | disposition home or self-care (01) ==
PROVIDERS: Emergency Provider Emergency Medicine; Family Provider Family Medicine; PCP Family Medicine
DX: R10.9 Unspecified abdominal pain (principal); R31.9 Hematuria, unspecified
CPT/HCPCS: 36415; 74178; 80053; 81001; 83690; 85025; 87077; 87086; 87185; 87186; 93005; 93010; 96374; 99284; J1170; Q9967

== ENCOUNTER 2023-03-04 17:55 | Emergency (ER) | payer OTHER, SELFPAY ==
[2022-05-18 18:44] VITALS: BMI 58.1
[2023-03-04 18:00] VITALS: BP 168/90; PULSE 84; RESP 16; TEMP 36.9; O2SAT 97; BMI 52.9
--- NOTE | 2023-03-04 18:07 | DI.RAD.S_ITS ---
PROCEDURE: XR CHEST 1V INDICATIONS: chest pain TECHNIQUE: One view of the chest was acquired. COMPARISON: [facility], CR, XR CHEST 1V, 05/18/2022, 11:44. [facility], CR, XR CHEST 1V, 07/20/2021, 11:19. FINDINGS: Surgical changes and devices: None. Lungs and pleura: Lungs are clear. No pleural effusions or pneumothorax. Mediastinum: Mediastinal contours appear normal. Heart size is normal. Bones and chest wall: No suspicious bony lesions. Overlying soft tissues appear unremarkable. IMPRESSION: No acute cardiopulmonary abnormality is seen. Dictated by: Lm Albrecht M.D. on 03/04/2023 at 19:25 Approved by: Lm Albrecht M.D. on 03/04/2023 at 19:26
[2023-03-04 18:31] LABS: Appearance Urine UA SL CLOUDY; Bilirubin Urine UA NEGATIVE (NEGATIVE); Color Urine UA YELLOW; Glucose Urine UA NEGATIVE (Negative); Ketones Urine UA NEGATIVE (NEGATIVE); Leukocyte Esterase Urine UA 1+ (NEGATIVE); Nitrite Urine UA NEGATIVE (Negative); Occult Blood Urine UA 3+ (Negative); Protein Urine UA 1+ (Negative); Urobilinogen Urine UA 0.2 E.U./dL (0.2)
[2023-03-04 18:37] LABS: Bacteria Urine None Seen; Culture Indicated Urine Cult Not Indicated; RBC Urine 10-30/HPF (0-5/HPF); Squamous Epithelial Cell Urine 0-1 /HPF (0-5/HPF); WBC Urine 0-1/HPF (0-5/HPF)
[2023-03-04 18:38] LABS: Add Manual Diff / Slide Review NO; Basophils Absolute Auto 100 /uL (0-100); Basophils Percent Auto 0.7 % (0-2); Eosinophils Absolute Auto 200 /uL (0-450); Hematocrit 47.1 % (41-53); Hemoglobin 15.4 g/dL (13.5-17.5); Lymphocytes Absolute Auto 3300 /uL (1100-4500); Lymphocytes Percent Auto 26.9 % (25-40); Mean Corpuscular HGB Conc 32.8 % (30-36); Mean Corpuscular Hemoglobin 26.5 PG (26-34); Mean Corpuscular Volume 80.9 fL (80-100); Monocytes Absolute Auto 1100 /uL (0-900); Neutrophils Absolute Auto 7500 /uL (1500-7000); Neutrophils Percent Auto 61.4 % (50-75); Platelet Count 279 X10^3/uL (150-400); Red Blood Cell Count 5.83 X10^6/uL (4.5-5.9); Red Cell Distribution Width 16.2 % (11.6-14.8); White Blood Cell Count 12.2 X10^3/uL (4.5-11.0)
[2023-03-04 18:52] LABS: Alanine Aminotransferase 29 IU/L (<50); Albumin 4.7 g/dL (3.5-5.0); Albumin Globulin Ratio 1.2 (1.0-2.8); Alkaline Phosphatase 66 U/L (38-126); Aspartate Aminotransferase 33 IU/L (17-59); Bilirubin Total 0.6 mg/dL (0.2-1.3); Blood Urea Nitrogen 15 mg/dL (9-20); Carbon Dioxide 28 mmol/L (22-32); Chloride 102 mmol/L (98-107); Creatine Kinase 74 U/L (55-170); Estimated Glomerular Filt Rate > 60 mL/min (>60); Globulin 3.8 g/dL (1.7-4.1); Glucose 80 mg/dL (70-100); HEMOLYSIS 52 (0-50); Lipase 107 U/L (23-300); Magnesium 2.1 mg/dL (1.6-2.3); Potassium 4.6 mmol/L (3.4-5.1); Sodium 140 mmol/L (137-145); Total Protein 8.5 g/dL (6.3-8.2)
[2023-03-04 19:03] LABS: Troponin I < 0.012 ng/mL (0.01-0.034)
[2023-03-04 20:45] VITALS: BP 154/76; PULSE 92; RESP 15; O2SAT 94
[2023-03-04 21:00] VITALS: BP 145/73; PULSE 86; RESP 21; O2SAT 94
[2023-03-04 21:30] VITALS: BP 142/79; PULSE 82; RESP 20; O2SAT 96
[2023-03-04 21:55] LABS: Troponin I < 0.012 ng/mL (0.01-0.034)
[2023-03-04 22:00] VITALS: BP 131/81; PULSE 81; O2SAT 91
--- NOTE | 2023-03-04 22:10 | ED.CHESTPAIN ---
HPI - Chest Pain General Chief Complaint: Chest Pain Stated Complaint: recent urinary stent, chest tightening off & on Time Seen by Provider: 03/04/23 20:45 Source: patient Mode of arrival: Ambulatory Limitations: no limitations History of Present Illness HPI narrative: Patient is a 53-year-old male here for evaluation of intermittent chest tightness over the past day or so. He recently had a urinary stent placed for kidney stones. He was supposed to have a 2nd surgery earlier this week but was told that he would not needed. He started to have some hematuria today. He states that this made him very anxious and then he started to have some chest discomfort. At the time of my exam he was not having any symptoms. Denies any fever. Symptoms were not worse with palpation or movement. No shortness of breath. No prior history of coronary artery disease. He stated that he has had a stress test in the past but he thought that it was a couple years ago. Related Data Allergies Allergy/AdvReac Type Severity Reaction Status Date / Time Sulfa (Sulfonamide Allergy Verified 01/25/23 10:40 Antibiotics) Review of Systems Review of Systems ROS Unobtainable: All systems reviewed & are unremarkable except as noted in HPI and below Patient History Medical History History of recent hospitalization Cellulitis of left leg DAVON (obstructive sleep apnea) Morbid obesity Chronic low back pain Morbid obesity Surgical History H/O laceration repair Family History Father Diabetes mellitus Cancer Mother Healthy adult Asthma Social History household members: family Smoking Status: Former smoker alcohol intake: current Smoking Status: Former smoker alcohol intake frequency: holidays/special occasions only Substance Use Type: does not use Exam Initial Vital Signs Initial Vital Signs: Vital Signs Temperature 98.5 F 03/04/23 18:00 Pulse Rate 84 03/04/23 18:00 Respiratory Rate 16 03/04/23 18:00 Blood Pressure 168/90 H 03/04/23 18:00 Pulse Oximetry 97 03/04/23 18:00 Oxygen Delivery Method Room Air 03/04/23 18:00 Const General: cooperative, comfortable and No ill appearing HENMT Head: normal to inspection and normocephalic Resp Effort & Inspection: normal respiratory effort Auscultation: clear to auscultation bilaterally Cardio Rate: regular rate Rhythm: regular rhythm GI Inspection: normal to inspection Skin General: no rashes or lesions noted Neuro General: patient alert, patient awake and moves all extremities Extrem General: normal to inspection and capillary refill normal Scores HEART Score Heart Score history: Slightly Suspicious Heart Score EKG: Normal Heart Score Age: 45-64 years old Heart Score risk factors: 1-2 risk factors Heart Score troponin: < or = to normal limit Heart Score Total: 2 Course Orders Ordered: ED Orders 03/04/23 21:15 Trop I [Troponin I] Stat Vital Signs Vital signs: Vital Signs - 8 hr 03/04/23 20:45 03/04/23 20:45 03/04/23 21:00 Pulse Rate 92 H Respiratory Rate 15 Blood Pressure 154/76 H 145/73 H Pulse Oximetry 94 03/04/23 21:00 03/04/23 21:30 03/04/23 21:30 Pulse Rate 86 82 Respiratory Rate 21 20 Blood Pressure 142/79 H Pulse Oximetry 94 96 03/04/23 22:00 03/04/23 22:00 Pulse Rate 81 Respiratory Rate Blood Pressure 131/81 Pulse Oximetry 91 MDM - Chest Pain Lab Data Attestation: I reviewed the patient's lab results. 03/04/23 18:20 03/04/23 18:20 Labs: Lab Results 03/04/23 03/04/23 03/04/23 Range/Units 18:10 18:20 21:15 WBC 12.2 H (4.5-11.0) X10^3/uL RBC 5.83 (4.5-5.9) X10^6/uL Hgb 15.4 (13.5-17.5) g/dL Hct 47.1 (41-53) % MCV 80.9 (80-100) fL MCH 26.5 (26-34) PG MCHC 32.8 (30-36) % RDW 16.2 H (11.6-14.8) % Plt Count 279 (150-400) X10^3/uL Neut % (Auto) 61.4 (50-75) % Lymph % (Auto) 26.9 (25-40) % Esmeralda % (Auto) 9.0 (3-14) % Eos % (Auto) 2.0 (2-4) % Baso % (Auto) 0.7 (0-2) % Neut # (Auto) 7500 H (0160-0620) /uL Lymph # (Auto) 3300 (3145-0856) /uL Esmeralda # (Auto) 1100 H (0-900) /uL Eos # (Auto) 200 (0-450) /uL Baso # (Auto) 100 (0-100) /uL PT Cancelled INR Cancelled APTT Cancelled Sodium 140 (137-145) mmol/L Potassium 4.6 (3.4-5.1) mmol/L Chloride 102 (98-107) mmol/L Carbon Dioxide 28 (22-32) mmol/L BUN 15 (9-20) mg/dL Creatinine 0.94 (0.66-1.25) mg/dL Estimated GFR > 60 (>60) mL/min BUN/Creatinine Ratio 16.0 (6-22) Glucose 80 (70-100) mg/dL Calcium 10.0 (8.4-10.2) mg/dL Magnesium 2.1 (1.6-2.3) mg/dL Total Bilirubin 0.6 (0.2-1.3) mg/dL AST 33 (17-59) IU/L ALT 29 (<50) IU/L Alkaline Phosphatase 66 (38-126) U/L Total Creatine Kinase 74 (55-170) U/L Troponin I < 0.012 < 0.012 (0.01-0.034) ng/mL Total Protein 8.5 H (6.3-8.2) g/dL Albumin 4.7 (3.5-5.0) g/dL Globulin 3.8 (1.7-4.1) g/dL Albumin/Globulin Ratio 1.2 (1.0-2.8) Lipase 107 (23-300) U/L Urine Color Yellow Urine Appearance Sl cloudy Urine pH 6.0 (4.5-8.0) Ur Specific [place] 1.020 (1.000-1.035) Urine Protein 1+ H (Negative) Urine Glucose (UA) Negative (Negative) g/dL Urine Ketones Negative (NEGATIVE) Urine Occult Blood 3+ H (Negative) Urine Nitrate Negative (Negative) Urine Bilirubin Negative (NEGATIVE) Urine Urobilinogen 0.2 (0.2) E.U./dL Ur Leukocyte Esterase 1+ H (NEGATIVE) Urine RBC 10-30/hpf H (0-5/HPF) Urine WBC 0-1/hpf (0-5/HPF) Ur Squamous Epith Cells 0-1 /hpf (0-5/HPF) Urine Bacteria None seen (None) Ur Culture Indicated? Cult not indicated Imaging Data Chest x-ray: Radiologist's Impression: PROCEDURE: XR CHEST 1V INDICATIONS: chest pain TECHNIQUE: One view of the chest was acquired. COMPARISON: [facility], CR, XR CHEST 1V, 05/18/2022, 11:44. [facility], CR, XR CHEST 1V, 07/20/2021, 11:19. FINDINGS: Surgical changes and devices: None. Lungs and pleura: Lungs are clear. No pleural effusions or pneumothorax. Mediastinum: Mediastinal contours appear normal. Heart size is normal. Bones and chest wall: No suspicious bony lesions. Overlying soft tissues appear unremarkable. IMPRESSION: No acute cardiopulmonary abnormality is seen. ECG Data Attestation: I personally reviewed and interpreted this ECG as follows: Interpretation: Sinus rhythm Ventricular rate 87 Normal axis Normal QRS Normal QTC No ST T wave changes MDM Narrative Medical decision making narrative: Low risk heart score. Unremarkable EKG. 2- troponins. Patient admits that his symptoms are most likely anxiety related because he started to have hematuria again today which is when the symptoms started. He was currently asymptomatic. Not hypertensive. Advised that the patient contact his primary doctor for follow-up to discuss stress testing. No indication for admission the hospital. Chest x-ray shows no signs of pneumonia. Patient is afebrile. Will discharge patient home with return precautions. He expressed understanding and agreement. Discharge Plan Departure Patient Disposition: Home Clinical Impression: Atypical chest pain Instructions: DI for Atypical Chest Pain Activity Restrictions/Additional Instructions: Recommend that you continue to take all of your medications as directed. Also recommend that you contact your primary care doctor to discuss further follow-up and to discuss the indications for a stress test. Return to the emergency department for new symptoms. Referrals: Silvina Cartwright MD [Primary Care Provider] - Stand Alone Forms: Patient Portal/API
== END 2023-03-04 22:18 | disposition home or self-care (01) ==
PROVIDERS: Emergency Provider Emergency Medicine; Family Provider Family Medicine; PCP Family Medicine
DX: R07.89 Other chest pain (principal)
CPT/HCPCS: 36415; 71045; 80053; 81001; 82550; 83690; 83735; 84484; 85025; 93005; 93010; 99283; 99284

== ENCOUNTER 2023-10-19 14:43 | Emergency (ER) | payer OTHER, SELFPAY ==
[2022-05-18 18:44] VITALS: BMI 58.1
[2023-10-19] VITALS (10 sets, daily range): BP systolic 141–173; BP diastolic 72–91; PULSE 86–95; RESP 15–26; TEMP 36.4; O2SAT 92–97; BMI 55.0
--- NOTE | 2023-10-19 14:50 | DI.RAD.S_ITS ---
PROCEDURE: XR CHEST 1V INDICATIONS: chest pain TECHNIQUE: One view of the chest was acquired. COMPARISON: [facility], , CHEST 1 VIEW, 06/02/2015, 10:32. FINDINGS: Surgical changes and devices: None. Lungs and pleura: Lungs are clear. No pleural effusions or pneumothorax. Mediastinum: Mediastinal contours appear normal. Heart size is normal. Bones and chest wall: No suspicious bony lesions. Overlying soft tissues appear unremarkable. IMPRESSION: No acute cardiopulmonary process. Dictated by: Katerina Oconnor M.D. on 10/19/2023 at 15:11 Approved by: Katerina Oconnor M.D. on 10/19/2023 at 15:11
[2023-10-19 15:07] LABS: Add Manual Diff / Slide Review NO; Basophils Absolute Auto 100 /uL (0-100); Eosinophils Absolute Auto 300 /uL (0-450); Eosinophils Percent Auto 3.1 % (2-4); Hematocrit 45.1 % (41-53); Hemoglobin 14.9 g/dL (13.5-17.5); Lymphocytes Absolute Auto 3700 /uL (1100-4500); Lymphocytes Percent Auto 35.2 % (25-40); Mean Corpuscular Hemoglobin 27.5 PG (26-34); Mean Corpuscular Volume 83.1 fL (80-100); Monocytes Absolute Auto 800 /uL (0-900); Neutrophils Absolute Auto 5600 /uL (1500-7000); Neutrophils Percent Auto 52.7 % (50-75); Platelet Count 270 X10^3/uL (150-400); Red Blood Cell Count 5.43 X10^6/uL (4.5-5.9); Red Cell Distribution Width 15.1 % (11.6-14.8); White Blood Cell Count 10.6 X10^3/uL (4.5-11.0)
--- NOTE | 2023-10-19 15:23 | EKG_ITS ---
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
[2023-10-19 15:25] LABS: Prothrombin Time 11.2 SECONDS (9.4-12.5)
[2023-10-19 15:27] LABS: PTT Partial Thromboplastin Tim 32 SECONDS (25.1-36.5)
[2023-10-19 15:29] LABS: Alanine Aminotransferase 38 IU/L (<50); Albumin 4.2 g/dL (3.5-5.0); Albumin Globulin Ratio 1.1 (1.0-2.8); Alkaline Phosphatase 71 U/L (38-126); Aspartate Aminotransferase 32 IU/L (17-59); BUN Creatinine Ratio 14.7 (6-22); Bilirubin Total 0.4 mg/dL (0.2-1.3); Blood Urea Nitrogen 15 mg/dL (9-20); Calcium 8.6 mg/dL (8.4-10.2); Carbon Dioxide 23 mmol/L (22-32); Chloride 107 mmol/L (98-107); Creatine Kinase 74 U/L (55-170); Estimated Glomerular Filt Rate > 60 mL/min (>60); Globulin 3.8 g/dL (1.7-4.1); Glucose 122 mg/dL (70-100); HEMOLYSIS < 15 (0-50); Lipase 81 U/L (23-300); Sodium 139 mmol/L (137-145)
--- NOTE | 2023-10-19 15:36 | ED.GENADULT ---
HPI - General Adult General Chief complaint: Hypertension Stated complaint: High BP/Anxiety meds not working Time Seen by Provider: 10/19/23 14:50 Source: patient Mode of arrival: Ambulatory History of Present Illness HPI narrative: 53-year-old male with history of hypertension, hyperlipidemia presents for elevated blood pressure and anxiety. Patient states that he was seen by his primary care doctor last week for the same concerns. He was started on a low-dose blood pressure medication and hydroxyzine for anxiety. Patient states that he does not feel like the hydroxyzine is working and he is still very anxious. He took his blood pressure today and it was elevated. He had a brief episode chest tightness prior to arrival, however patient states that since he has been in the emergency department his chest pain has resolved and has not recurred. Related Data Allergies Allergy/AdvReac Type Severity Reaction Status Date / Time Sulfa (Sulfonamide Allergy Verified 10/19/23 14:55 Antibiotics) nicotine [From Nicoderm CQ] AdvReac Intermediate Confusion Verified 10/19/23 14:55 Patient History Medical History History of recent hospitalization Cellulitis of left leg DAVON (obstructive sleep apnea) Morbid obesity Chronic low back pain Morbid obesity Surgical History H/O laceration repair Family History Father Diabetes mellitus Cancer Mother Healthy adult Asthma Social History household members: family Smoking Status: Former smoker alcohol intake: current Smoking Status: Former smoker alcohol intake frequency: holidays/special occasions only Substance Use Type: does not use Exam Initial Vital Signs Initial Vital Signs: Vital Signs Pulse Oximetry 97 10/19/23 14:46 Course Orders Ordered: Discontinued Medications Aspirin (Aspirin 81 Mg Chew Tab) 324 mg PO NOW ONE Stop: 10/19/23 14:51 Last Admin: 10/19/23 15:25 Dose: Not Given Documented By: SPF Vital Signs Vital signs: Vital Signs - 8 hr 10/19/23 14:46 10/19/23 14:47 10/19/23 14:47 Temperature Pulse Rate 90 Respiratory Rate Blood Pressure 173/91 H Pulse Oximetry 97 94 Oxygen Delivery Method 10/19/23 14:51 10/19/23 15:00 10/19/23 15:02 Temperature 97.6 F Pulse Rate 95 H 91 H 87 Respiratory Rate 22 23 26 H Blood Pressure 173/91 H Pulse Oximetry 94 95 96 Oxygen Delivery Method Room Air Room Air 10/19/23 15:02 10/19/23 15:03 10/19/23 15:03 Temperature Pulse Rate 86 Respiratory Rate 15 Blood Pressure 141/76 H 153/78 H Pulse Oximetry 96 Oxygen Delivery Method Room Air 10/19/23 15:30 10/19/23 15:30 10/19/23 16:00 Temperature Pulse Rate 88 Respiratory Rate 17 Blood Pressure 142/74 H 149/74 H Pulse Oximetry 92 Oxygen Delivery Method 10/19/23 16:00 10/19/23 16:17 10/19/23 16:17 Temperature Pulse Rate 89 88 Respiratory Rate 18 15 Blood Pressure 145/72 H Pulse Oximetry 95 94 Oxygen Delivery Method Medical Decision Making Lab Data 10/19/23 15:00 10/19/23 15:00 Labs: Lab Results 10/19/23 Range/Units 15:00 WBC 10.6 (4.5-11.0) X10^3/uL RBC 5.43 (4.5-5.9) X10^6/uL Hgb 14.9 (13.5-17.5) g/dL Hct 45.1 (41-53) % MCV 83.1 (80-100) fL MCH 27.5 (26-34) PG MCHC 33.0 (30-36) % RDW 15.1 H (11.6-14.8) % Plt Count 270 (150-400) X10^3/uL Neut % (Auto) 52.7 (50-75) % Lymph % (Auto) 35.2 (25-40) % [place] % (Auto) 8.0 (3-14) % Eos % (Auto) 3.1 (2-4) % Baso % (Auto) 1.0 (0-2) % Neut # (Auto) 5600 (4925-6573) /uL Lymph # (Auto) 3700 (6328-9893) /uL [place] # (Auto) 800 (0-900) /uL Eos # (Auto) 300 (0-450) /uL Baso # (Auto) 100 (0-100) /uL PT 11.2 (9.4-12.5) SECONDS INR 1.0 (0.9-1.3) APTT 32 (25.1-36.5) SECONDS Sodium 139 (137-145) mmol/L Potassium 4.0 (3.4-5.1) mmol/L Chloride 107 (98-107) mmol/L Carbon Dioxide 23 (22-32) mmol/L BUN 15 (9-20) mg/dL Creatinine 1.02 (0.66-1.25) mg/dL Estimated GFR > 60 (>60) mL/min BUN/Creatinine Ratio 14.7 (6-22) Glucose 122 H (70-100) mg/dL Calcium 8.6 (8.4-10.2) mg/dL Magnesium 2.0 (1.6-2.3) mg/dL Total Bilirubin 0.4 (0.2-1.3) mg/dL AST 32 (17-59) IU/L ALT 38 (<50) IU/L Alkaline Phosphatase 71 (38-126) U/L Total Creatine Kinase 74 (55-170) U/L Troponin I < 0.012 (0.01-0.034) ng/mL NT-Pro-B Natriuret Pep < 20 (<125) pg/mL Total Protein 8.0 (6.3-8.2) g/dL Albumin 4.2 (3.5-5.0) g/dL Globulin 3.8 (1.7-4.1) g/dL Albumin/Globulin Ratio 1.1 (1.0-2.8) Lipase 81 (23-300) U/L [facility] Narrative Medical decision making narrative: Patient presenting for worsening anxiety, the hydroxyzine prescribed by his primary doctor does not seem to be working. Patient reports brief episode of chest pain earlier, however it has since resolved. EKG normal sinus rhythm, no significant change from prior. High sensitivity troponin undetectable. BNP undetectable. Chest x-ray negative for acute process. Patient informed of lab and imaging results, he was relieved to hear normal findings. He will follow up with his primary care doctor about his anxiety. Recommended that patient discuss possibility of being on SSRI or SNRI for anxiety with his primary care doctor Discharge Plan Departure Patient Disposition: Home Clinical Impression: Chest pain Instructions: DI for Chest Pain Activity Restrictions/Additional Instructions: Your laboratory work, EKG, and chest x-ray were normal today. Continue to take your medications as prescribed. If you came continue to experience breakthrough anxiety I recommend following up with your primary care doctor about maybe switching your medications. Referrals: Silvina Cartwright MD [Primary Care Provider] - Stand Alone Forms: Patient Portal/API
[2023-10-19 15:39] LABS: NT-proBNP (BNP-Adult 18+) < 20 pg/mL (<125)
[2023-10-19 15:40] LABS: Troponin I < 0.012 ng/mL (0.01-0.034)
== END 2023-10-19 16:38 | disposition home or self-care (01) ==
PROVIDERS: Student in an Organized Health Care Education/Training Program; Emergency Provider Emergency Medicine; Family Provider Family Medicine; PCP Family Medicine
DX: R07.9 Chest pain, unspecified (principal); F41.9 Anxiety disorder, unspecified
CPT/HCPCS: 36415; 71045; 80053; 82550; 83690; 83735; 83880; 84484; 85025; 85610; 85730; 93005; 99283; 99284

== ENCOUNTER → 2024-10-03 16:10 | Outpatient (CLI) | payer OTHER, SELFPAY ==
[2022-05-18 18:44] VITALS: BMI 58.1
--- NOTE | 2024-10-03 16:16 | DI.RAD.S_ITS ---
PROCEDURE: XR HIP W PEL IF DONE BILAT 2V INDICATIONS: HIP PAIN TECHNIQUE: Three views of the hips were acquired . COMPARISON: [facility], CR, XR HIP W PEL IF DONE DANUTA 3TO4V, 01/08/2021, 15:31. FINDINGS: Bones: There are no osseous abnormalities. SI and hip joints: Mild congenital bilateral hip dysplasia noted . Severe left and moderate right hip degeneration has progressed since 2020. SI joints are normal. Moderate L5-S1 degenerative disc and facet disease noted Soft tissues: No soft tissue swelling, calcification or mass. IMPRESSION: Severe left and moderate right hip degeneration Dictated by: Renaldo Cordon M.D. on 10/05/2024 at 11:44 Approved by: Renaldo Cordon M.D. on 10/05/2024 at 11:45
== END ==
LOC: RAD 16:14
PROVIDERS: Family Provider Family Medicine; PCP Family Medicine; Referring Provider Family Medicine; Visit Provider Family Medicine
DX: M16.0 Bilateral primary osteoarthritis of hip (principal); M51.379 Other intervertebral disc degeneration, lumbosacral region without mention of lumbar back pain or lower extremity pain; M47.817 Spondylosis without myelopathy or radiculopathy, lumbosacral region; Q65.89 Other specified congenital deformities of hip
CPT/HCPCS: 73521